=== PATIENT | female | born 1965 | race Hispanic/Latino ===

== ENCOUNTER 2019-03-03 14:07 | Emergency (ER) | payer OTHER ==
[~2019-03-03] VITALS: Ht 157.5 cm; Wt 53.1 kg
[~2019-03-03 14:07] MED LIST: FUROSEMIDE20 MG PO; LEVAQUIN500 MG PO; LEVEMIR100 UNIT/1; LOPRESSOR25 MG PO; NOVOLOG MI100 UNITS/
[2019-03-03] MEDS ORDERED: SODIUM CHLORIDE 0.9% 1000ML 1,000 ML IV STA (14:44)
[2019-03-03] MEDS ORDERED: INSULIN REGULAR, HUMAN 100 UNIT/1 ML 3ML VIAL IV ONE ×2 (14:45→16:15)
[2019-03-03 15:14] LABS: BILIRUBIN,URINE NEGATIVE (NEGATIVE); CLARITY,URINE CLOUDY (CLEAR); COLOR,URINE YELLOW (YELLOW); KETONES,URINE NEGATIVE (NEGATIVE); LEUKOCYTE ESTERASE ,URINE SMALL (NEGATIVE); NITRITE,URINE NEGATIVE (NEGATIVE); URINE UROBILINOGEN 0.2 mg/dL (0.2 - 1)
[2019-03-03 15:17] LABS: PROTEIN,URINE DIPSTICK 3+ (NEGATIVE)
[2019-03-03 15:32] LABS: BACTERIA,URINE MANY /HPF
[2019-03-03 15:47] LABS: BASOPHILS # (AUTO) 0.1 (0.0-0.1); BASOPHILS % 0.8 % (0.0-1.0); EOSINOPHILS # (AUTO) 0.2 (0.0-0.4); EOSINOPHILS % 2.2 % (0.0-6.0); HEMATOCRIT 44.6 % (34.2-44.1); HEMOGLOBIN 14.8 g/dL (12.0-16.0); LYMPHOCYTES # (AUTO) 2.3 (1.0-3.2); LYMPHOCYTES % 21.9 % (18.0-39.1); MEAN CORPUSCULAR HEMOGLOBIN 27.8 pg (28-32); MEAN CORPUSCULAR HGB CONC 33.2 g/dL (31-35); MEAN CORPUSCULAR VOLUME 83.7 fL (81-99); MONOCYTES # (AUTO) 0.7 (0.2-0.8); MONOCYTES % 7.2 % (4.4-11.3); NEUTROPHILS % 67.6 % (38.7-80.0); PLATELET COUNT 343 x10e3/uL (140-360); RED BLOOD COUNT 5.33 x10e6/uL (3.6-5.1); RED CELL DISTRIBUTION WIDTH 13.5 % (11.7-14.4)
[2019-03-03 16:04] LABS: ALANINE AMINOTRANSFERASE 44 IU/L (0-55); ALBUMIN 2.2 g/dL (3.5-5.0); ALBUMIN/GLOBULIN RATIO 0.4 (0.8-2.0); ALKALINE PHOSPHATASE 92 IU/L (40-150); ANION GAP 12.8 mmol/L (8-16); BLOOD UREA NITROGEN 19 mg/dL (7-26); BUN/CREATININE RATIO 24 (6-25); CALCIUM 9.5 mg/dL (8.4-10.2); CARBON DIOXIDE 28 mmol/L (22-29); CHLORIDE 96 mmol/L (98-107); EST GLOMERULAR FILTRATION RATE > 60 ML/MIN (60-); GLUCOSE 380 mg/dL (74-118); MAGNESIUM 1.7 MG/DL (1.3-2.1); POTASSIUM 3.8 mmol/L (3.5-5.1); SODIUM 133 mmol/L (136-145)
[2019-03-03] MEDS ORDERED: CEFTRIAXONE SOD 1 GM/NS 50 ML 50 ML IV ONE (16:30)
[2019-03-03] MEDS ORDERED: BACTRIM DS TAB1 EACH PO (17:48)
[2019-03-03 18:18] VITALS: BP 137/89
== END 2019-03-03 19:00 | disposition home or self-care (01) ==
LOC: ER 14:07
DX: M79.661 Pain in right lower leg (principal); R60.0 Localized edema; E10.65 Type 1 diabetes mellitus with hyperglycemia; E78.5 Hyperlipidemia, unspecified
CPT/HCPCS: 36415; 80053; 81001; 83735; 85025; 87040; 87086; 93971; 99284; J0696; J1817; J7030

== ENCOUNTER → 2019-03-08 | Outpatient (CLI) | payer OTHER ==
[~2019-03-08] MED LIST changes: +ATORVASTATIN CA80 MG PO; +BACTRIM DS TAB1 EACH PO; +CLINDAMYCIN HC300 MG PO; +GABAPENTIN400 MG PO; +GLIMEPIRIDE4 MG PO; +KEFLEX500 MG PO; +LEVEMIR; +LISINOPRIL20 MG PO; +METFORMIN HCL1000 MG PO; +NOVOLOG100 UNITS1; +OMEGA-3-ACID PO; +TYLENOL WITH C1 EACH PO; +ZETIA10 MG PO
== END ==
LOC: CARD 08:28
PROVIDERS: ATTEND Nurse Practitioner Family
DX: I73.9 Peripheral vascular disease, unspecified (principal); I80.03 Phlebitis and thrombophlebitis of superficial vessels of lower extremities, bilateral
CPT/HCPCS: 93925; 93970

== ENCOUNTER 2019-03-19 18:30 | Inpatient (IN) | payer OTHER ==
[~2019-03-19] VITALS: Ht 157.5 cm; Wt 53.1 kg
[~2019-03-19 18:30] MED LIST changes: -ATORVASTATIN CA80 MG PO; -CLINDAMYCIN HC300 MG PO; -GABAPENTIN400 MG PO; -GLIMEPIRIDE4 MG PO; -KEFLEX500 MG PO; -LEVEMIR; -LISINOPRIL20 MG PO; -METFORMIN HCL1000 MG PO; -NOVOLOG100 UNITS1; -OMEGA-3-ACID PO; -TYLENOL WITH C1 EACH PO; -ZETIA10 MG PO
[2019-03-19] MEDS: SODIUM CHLORIDE 0.9% 1000ML 1,000 ML IV SCH (18:44)
[2019-03-19] MEDS ORDERED: ONDANSETRON HCL INJ 2MG/ML 2ML 2 MG/ML VIAL IV PRN (18:45)
[2019-03-19] MEDS ORDERED: MORPHINE SULFATE 2 MG/ML SYR 1ML IV PRN (18:45)
[2019-03-19] MEDS: CEFAZOLIN SOD 1 GM/NS 50ML 50 ML IV SCH (19:19)
[2019-03-19 19:50] LABS: BASOPHILS # (AUTO) 0.1 (0.0-0.1); BASOPHILS % 0.8 % (0.0-1.0); EOSINOPHILS # (AUTO) 0.3 (0.0-0.4); EOSINOPHILS % 3.3 % (0.0-6.0); HEMATOCRIT 36.7 % (34.2-44.1); HEMOGLOBIN 11.9 g/dL (12.0-16.0); LYMPHOCYTES # (AUTO) 2.9 (1.0-3.2); LYMPHOCYTES % 29.2 % (18.0-39.1); MEAN CORPUSCULAR HEMOGLOBIN 27.8 pg (28-32); MEAN CORPUSCULAR HGB CONC 32.4 g/dL (31-35); MEAN CORPUSCULAR VOLUME 85.7 fL (81-99); MONOCYTES # (AUTO) 0.7 (0.2-0.8); MONOCYTES % 6.5 % (4.4-11.3); NEUTROPHILS % 59.8 % (38.7-80.0); PLATELET COUNT 431 x10e3/uL (140-360); RED BLOOD COUNT 4.28 x10e6/uL (3.6-5.1); RED CELL DISTRIBUTION WIDTH 13.4 % (11.7-14.4)
[2019-03-19 20:07] LABS: ANION GAP 13.6 mmol/L (8-16); BLOOD UREA NITROGEN 32 mg/dL (7-26); BUN/CREATININE RATIO 36 (6-25); CALCIUM 9.3 mg/dL (8.4-10.2); CARBON DIOXIDE 23 mmol/L (22-29); CHLORIDE 107 mmol/L (98-107); EST GLOMERULAR FILTRATION RATE > 60 ML/MIN (60-); GLUCOSE 89 mg/dL (74-118); POTASSIUM 4.6 mmol/L (3.5-5.1); SODIUM 139 mmol/L (136-145)
[2019-03-19] MEDS: VANCOMYCIN 1GM/NS 250 ML 250 ML IV SCH (20:53)
--- NOTE | 2019-03-19 21:13 | NUR ---
DOPPLER TECH AT BEDSIDE
--- NOTE | 2019-03-19 21:50 | NUR ---
Received from the E.R. via stretcher. IV to right forearm 20G with on going antibiotics. Transferred to bed. Bed lock and in lowest position. Instructed to use call light when needed.
[2019-03-19] MEDS ORDERED: GABAPENTIN400 MG PO (22:01)
[2019-03-19] MEDS ORDERED: ZETIA10 MG PO (22:01)
[2019-03-19] MEDS ORDERED: GLIMEPIRIDE4 MG PO (22:01)
[2019-03-19] MEDS ORDERED: LISINOPRIL20 MG PO (22:01)
[2019-03-19] MEDS ORDERED: CLINDAMYCIN HC300 MG PO (22:01)
[2019-03-19] MEDS ORDERED: NOVOLOG100 UNITS1 (22:01)
[2019-03-19] MEDS ORDERED: METFORMIN HCL1000 MG PO (22:01)
[2019-03-19] MEDS ORDERED: OMEGA-3-ACID PO (22:01)
[2019-03-19] MEDS ORDERED: ATORVASTATIN CA80 MG PO (22:01)
[2019-03-19] MEDS ORDERED: LEVEMIR (22:01)
[2019-03-19 23:45] VITALS: BP 134/85
[2019-03-19 23:46] VITALS: BP 134/85
[2019-03-19 23:53] VITALS: BP 118/69
[2019-03-20] VITALS (7 sets, daily range): BP systolic 123–147; BP diastolic 74–88
[2019-03-20 05:28] LABS: BASOPHILS # (AUTO) 0.1 (0.0-0.1); BASOPHILS % 0.9 % (0.0-1.0); EOSINOPHILS # (AUTO) 0.3 (0.0-0.4); EOSINOPHILS % 3.8 % (0.0-6.0); HEMATOCRIT 35.6 % (34.2-44.1); HEMOGLOBIN 11.5 g/dL (12.0-16.0); LYMPHOCYTES # (AUTO) 2.2 (1.0-3.2); LYMPHOCYTES % 29.8 % (18.0-39.1); MEAN CORPUSCULAR HEMOGLOBIN 27.8 pg (28-32); MEAN CORPUSCULAR HGB CONC 32.3 g/dL (31-35); MONOCYTES # (AUTO) 0.5 (0.2-0.8); MONOCYTES % 6.7 % (4.4-11.3); NEUTROPHILS # (AUTO) 4.4 (2.1-6.9); NEUTROPHILS % 58.4 % (38.7-80.0); PLATELET COUNT 368 x10e3/uL (140-360); RED BLOOD COUNT 4.14 x10e6/uL (3.6-5.1); RED CELL DISTRIBUTION WIDTH 13.5 % (11.7-14.4)
[2019-03-20 05:45] LABS: ANION GAP 11.5 mmol/L (8-16); BLOOD UREA NITROGEN 27 mg/dL (7-26); BUN/CREATININE RATIO 38 (6-25); CALCIUM 8.7 mg/dL (8.4-10.2); CARBON DIOXIDE 26 mmol/L (22-29); CHLORIDE 110 mmol/L (98-107); CREATININE, SERUM 0.72 mg/dL (0.57-1.11); EST GLOMERULAR FILTRATION RATE > 60 ML/MIN (60-); GLUCOSE 106 mg/dL (74-118); POTASSIUM 4.5 mmol/L (3.5-5.1); SODIUM 143 mmol/L (136-145)
[2019-03-20] MEDS: CEFAZOLIN SOD 1 GM/NS 50ML 50 ML IV SCH (06:26)
--- NOTE | 2019-03-20 06:38 | NUR ---
Spoke with Patric Albrecht answering service for routine consultation.
[2019-03-20] MEDS: VANCOMYCIN 1GM/NS 250 ML 250 ML IV SCH ×2 (08:41→22:13)
[2019-03-20] MEDS: SODIUM CHLORIDE 0.9% 1000ML 1,000 ML IV SCH ×2 (08:41→13:08)
[2019-03-20] MEDS ORDERED: DEXTROSE 50% SYRINGE 50 ML IV PRN ×2 (13:00→16:30)
[2019-03-20] MEDS: INSULIN REGULAR, HUMAN 100 UNIT/1 ML 3ML VIAL SQ SCH ×2 (16:30→21:50)
[2019-03-20] MEDS ORDERED: NON-FORMULARY MEDICATION (Metformin Hcl 1,000 MG) PO SCH (17:00)
[2019-03-20] MEDS ORDERED: SODIUM CHLORIDE 0.9% 50ML 50 ML ONE (17:11)
[2019-03-20] MEDS ORDERED: IOPAMIDOL 370 MG/ML 200 ML INFUS..BTL INJ ONE (17:12)
[2019-03-20] MEDS: GABAPENTIN 400 MG CAP PO SCH (17:55)
[2019-03-20] MEDS: ENOXAPARIN SOD INJ 40 MG/0.4 ML SYR SC SCH (17:55)
--- NOTE | 2019-03-20 19:09 | History and Physical ---
CHIEF COMPLAINT: Right calf cellulitis. HISTORY OF PRESENT ILLNESS: This is a 53-year-old female, who apparently has been having this right calf cellulitis ongoing for the last 2 weeks now. The patient reports that she noticed initially as a small pimple, but it progressively got worse over the last 2 weeks. She denies any insect bites or any traumas or any spider bites. Reports having some purulent discharge from the actual site. Her states that she has been having subjective fevers of 102. Her primary care physician has given some more antibiotics, but with no resolve. The patient came in yesterday for further management and care, and evaluation, and continue with IV antibiotic therapy. The patient was seen and evaluated at that time on the medical floor. Currently, she is doing well. Vital signs were stable during my evaluation. REVIEW OF SYSTEMS: Pertinent positives: Right calf cellulitis. Pertinent negatives: Denies any chest pain, palpitation, nausea, vomiting, diarrhea, dysuria, hematuria, frequency, urgency, lightheadedness, dizziness, abdominal pain, headaches, shortness of breath, cough, congestion, fever, or any other complaints. Rest of the 14-point review of systems are reviewed with the patient and are negative. ALLERGIES: NO KNOWN DRUG ALLERGIES. MEDICATIONS: 1. Zetia 10 mg daily. 2. Gabapentin 400 mg b.i.d. 3. Insulin. 4. Lisinopril 20 mg daily. 5. Atorvastatin 80 mg daily. 6. Loperamide 4 mg daily. 7. Metformin 1000 mg p.o. b.i.d. PAST MEDICAL HISTORY: Type 2 diabetes, hypertension, and hyperlipidemia. PAST SURGICAL HISTORY: None. FAMILY HISTORY: Hypertension and diabetes. SOCIAL HISTORY: No drugs. No alcohol. Does not smoke. Good social support. She has children, . PHYSICAL EXAMINATION: VITAL SIGNS: Temperature is 96.3, pulse 92, respiratory rate is 18, blood pressure is 140/77, and pulse ox 97% on room air. GENERAL: Not in acute distress. Alert and oriented x3. Cooperative on examination. HEENT: Head; normocephalic, atraumatic. Eyes; pupils are equal, round, and reactive to light bilaterally. Extraocular movements intact bilaterally. Throat; no evidence of erythema or exudates in the posterior pharynx. Has poor dentition. NECK: Supple. Good range of motion. PULMONARY: Clear to auscultation bilaterally. No wheezing, no rales, no rhonchi, no crackles appreciated. CARDIOVASCULAR: Positive S1 and S2. No murmurs, rubs, or gallops appreciated. ABDOMEN: Soft, nondistended, and nontender to palpation. Bowel sounds present. MUSCULOSKELETAL: Strength is 5/5 throughout. No evidence of any muscle deficits on examination. No weakness appreciated. NEUROLOGIC: Cranial nerve II through XII grossly intact. No evidence of any neurological deficits on exam. SKIN: Intact. Warm to touch. Good cap refill. PSYCHIATRIC: Normal affect and mood. EXTREMITIES: She has a right lower extremity calf cellulitis indurated. Warm to touch. No discharge appreciated. Has a proximal chronic area in the center aspect of the abscess. LABORATORY STUDIES: Lab findings show white count 7.4, hemoglobin 11.5, hematocrit 22.2, platelets of 368. Chemistry; sodium 143, potassium is 4.5, chloride 110, bicarbonate 26, anion gap of 11, BUN is 27, creatinine 0.72, glucose 106, calcium is 8.7. MICROBIOLOGY: None. IMAGING STUDIES: . IMPRESSION: 1. Right calf cellulitis with underlying abscess. 2. Type 2 diabetes. 3. Hypertension. 4. Hyperlipidemia. PLAN: At this time, we will go ahead and continue with IV vancomycin, discontinue , which has no benefit and the fact that the patient is on vancomycin for possible MRSA. I will have ID and Wound Care come to see the patient. The patient may need be a local abscess drainage, which wound care will be of helpful. and Dr. Albrecht accordingly. We restarted all her home medications including anti-glycemic medications. I put her on insulin sliding scale and Accu-Cheks. Resume her antihypertensive medications. Monitor blood pressure closely. Get repeat labs in the morning. Put on Lovenox for DVT prophylaxis. We will also get a CT of the right calf with IV contrast to see if there is any deep tissue abscess that may need more aggressive surgical intervention. Otherwise, I discussed the plan of care with the nurse as well as the patient using a napper runner. MD ANITA Bardales/CAPRICEL /[id number]
--- NOTE | 2019-03-20 19:54 | Consultation ---
DATE OF CONSULTATION: HISTORY OF PRESENT ILLNESS: This patient who is here with redness and swelling of her left foot. She denies any history. She had it for more than a week. Not sure of there is a specific insect bite or trauma. The patient comes in with redness and swelling. Started on IV antibiotic. PAST MEDICAL HISTORY: Significant for diabetes mellitus, hypertension, hyperlipidemia. PAST SURGICAL HISTORY: Denies. ALLERGIES: NKA. SOCIAL HISTORY: There is no smoking, drug abuse, or alcohol abuse. FAMILY HISTORY: Otherwise diabetes mellitus. REVIEW OF SYSTEMS: HEENT: Negative. PULMONARY: Negative. CARDIAC: Negative. : Negative. SKIN: There is no rash. MEDICATIONS: She is on vancomycin, Amaryl, Lipitor, Prinivil, Neurontin. LABORATORY DATA: White count 9.9, hemoglobin 11. Her sodium 143, potassium 4.5, creatinine 0.72. PHYSICAL EXAMINATION: GENERAL: She is currently alert, oriented, does not seem in acute distress. VITAL SIGNS: Stable, afebrile. HEENT: Normocephalic, not icteric. NECK: Supple. No JVD. No thyromegaly. CHEST: Clear bilaterally. HEART: S1, S2. No murmur. ABDOMEN: Soft. Bowel sounds present. No tenderness. EXTREMITIES: Right leg there is erythema. There is edema. There is an area of induration in the middle and behind the calf area. IMPRESSION: 1. Cellulitis, maybe early abscess. Agree with vancomycin for the time being. There is no drainage to culture. Local heat. We will follow vancomycin trough. We will see how she will do clinically. 2. Diabetes mellitus, hypertension, neuropathy. Continue with home medication as ordered. Keep the leg elevated with local heat pad. We will follow. MD DINAH Joiner/KELLI /[id number]
[2019-03-20] MEDS: ATORVASTATIN 40 MG TAB PO SCH (22:13)
[2019-03-21] VITALS (8 sets, daily range): BP systolic 95–147; BP diastolic 62–85
[2019-03-21 06:02] LABS: BASOPHILS # (AUTO) 0.1 (0.0-0.1); BASOPHILS % 1.2 % (0.0-1.0); EOSINOPHILS # (AUTO) 0.3 (0.0-0.4); EOSINOPHILS % 4.5 % (0.0-6.0); HEMATOCRIT 36.2 % (34.2-44.1); HEMOGLOBIN 11.5 g/dL (12.0-16.0); LYMPHOCYTES # (AUTO) 2.1 (1.0-3.2); LYMPHOCYTES % 32.8 % (18.0-39.1); MEAN CORPUSCULAR HEMOGLOBIN 27.5 pg (28-32); MEAN CORPUSCULAR HGB CONC 31.8 g/dL (31-35); MEAN CORPUSCULAR VOLUME 86.6 fL (81-99); MONOCYTES # (AUTO) 0.5 (0.2-0.8); NEUTROPHILS # (AUTO) 3.5 (2.1-6.9); NEUTROPHILS % 54.5 % (38.7-80.0); PLATELET COUNT 365 x10e3/uL (140-360); RED BLOOD COUNT 4.18 x10e6/uL (3.6-5.1); RED CELL DISTRIBUTION WIDTH 13.4 % (11.7-14.4)
[2019-03-21 06:34] LABS: ANION GAP 13.3 mmol/L (8-16); BLOOD UREA NITROGEN 22 mg/dL (7-26); BUN/CREATININE RATIO 27 (6-25); CALCIUM 8.7 mg/dL (8.4-10.2); CARBON DIOXIDE 26 mmol/L (22-29); CHLORIDE 108 mmol/L (98-107); CREATININE, SERUM 0.82 mg/dL (0.57-1.11); EST GLOMERULAR FILTRATION RATE > 60 ML/MIN (60-); GLUCOSE 165 mg/dL (74-118); POTASSIUM 4.3 mmol/L (3.5-5.1); SODIUM 143 mmol/L (136-145)
[2019-03-21] MEDS: SODIUM CHLORIDE 0.9% 1000ML 1,000 ML IV SCH ×2 (07:14→14:22)
[2019-03-21] MEDS: INSULIN REGULAR, HUMAN 100 UNIT/1 ML 3ML VIAL SQ SCH ×4 (07:30→21:10)
[2019-03-21] MEDS: GABAPENTIN 400 MG CAP PO SCH ×2 (08:53→18:17)
[2019-03-21] MEDS: LISINOPRIL 20 MG TAB PO SCH (08:53)
[2019-03-21] MEDS: EZETIMIBE 10 MG TAB PO SCH (08:53)
[2019-03-21] MEDS: GLIMEPIRIDE 2 MG TAB PO SCH (08:53)
[2019-03-21] MEDS: VANCOMYCIN 1GM/NS 250 ML 250 ML IV SCH ×2 (08:54→21:00)
--- NOTE | 2019-03-21 10:51 | Diagnostic Imaging Report ---
CT Lower extremity right with contrast, with reconstructions. CPT code: 15314, 54627 Indications: Cellulitis, evaluate for abscess at the mid lower extremity posterior aspect. Technique: Contiguous 2.5 mm thickness axial images were obtained through the right lower extremity. 100 cc of nonionic contrast was administered intravenously. Rationale for reconstructions: Coronal and sagittal reconstructions were generated to better facilitate assessment of alignment and extent of fracture lines. Dose reduction techniques used: Automated exposure control, adjustment of the mAs and/or kVp according to patient size, standardized low-dose protocol, and/or iterative reconstruction technique. Comparison: None. Findings: Diffuse subcutaneous edema throughout the lower extremity, ankle, and proximal foot. No loculated fluid collection to suggest abscess. Visualized muscle bundles are symmetric in attenuation with normal enhancement. Vasculature: Scattered atherosclerotic calcifications. There is flow in the arterial structures. No significant stenosis. Bones: No fracture or dislocation. No significant degenerative changes. IMPRESSION: Diffuse cellulitis of the lower extremity. No loculated fluid collection to suggest abscess. Thank you for this referral. Signed by: Dr. Barry Talley MD on 03/21/2019 10:48 AM
--- NOTE | 2019-03-21 13:02 | Consultation ---
DATE OF CONSULTATION: Wound Consultation HISTORY OF PRESENT ILLNESS: A 53-year-old female patient admitted with a left calf abscess and cellulitis, fever. Wound consult was called. PAST MEDICAL HISTORY: Hyperlipidemia, diabetes mellitus, hypertension, and diabetic neuropathy. MEDICATIONS: 1. Zetia 10 mg daily. 2. Gabapentin. 3. Lisinopril. 4. Atorvastatin. 5. Metformin. PERSONAL HISTORY: Denies smoking or alcohol. PHYSICAL EXAMINATION: VITAL SIGNS: Blood pressure 148/70 and pulse of 90. HEENT: Normal. NECK: No JVD. LUNGS: Clear. CVS: Normal. ABDOMEN: Soft. Bowel sounds normal. EXTREMITIES: Lower extremities, right lower extremity swollen with necrotic eschar in the right posterior calf, fluctuant, tender. ASSESSMENT: Right calf abscess with cellulitis. PLAN: We will plan doing incision and drainage and debridement of the wound. Continue antibiotics. MD NARENDRA Marie/KELLI /[id number]
[2019-03-21] MEDS: MORPHINE SULFATE INJ 4 MG/ML INJ 1ML IV PRN (13:05)
--- NOTE | 2019-03-21 13:47 | Operative Report ---
DATE OF PROCEDURE: 03/21/2019 SURGEON: Rhona Nowak MD PROCEDURE: Incision and drainage and debridement of the abscess. PROCEDURE IN DETAIL: A 53-year-old female patient admitted with abscess and cellulitis of right calf. After explaining the procedure, I used a #15 blade. I did an incision and drainage of the abscess and excisional debridement removed all the nonviable tissue and part of the viable tissue. There was some minimal bleeding, controlled with pressure. Wound culture sent. The patient tolerated the procedure. Wound was cleaned with normal saline, packed with Iodoform gauze, 4x4, Kerlix, and tape. Rhona Nowak MD TG/MODL /[id number]
--- NOTE | 2019-03-21 15:58 | Progress Note ---
DATE: 03/21/2019 Medicine Progress Note SUBJECTIVE: The patient is doing well with no complaints. Wound care did an incision and drainage at bedside. Wound cultures were sent. Had minimal pus. Continue with IV antibiotics for now. PHYSICAL EXAMINATION: VITAL SIGNS: Temperature is 95.7, pulse 82, respiratory rate is 19, blood pressure 147/84, pulse ox 96% on room air. GENERAL: Not in acute distress. Alert and oriented x3. Cooperative on examination. HEENT: Head; normocephalic, atraumatic. Eyes; pupils are equal, round, and reactive to light bilaterally. Extraocular movements are intact bilaterally. Throat; no evidence of erythema or exudates in the posterior pharynx. Has poor dentition. NECK: Supple. Good range of motion. PULMONARY: Clear to auscultation bilaterally. No wheezing, no rales, no rhonchi, no crackles appreciated. CARDIOVASCULAR: Positive S1 and S2. No murmurs, rubs, or gallops appreciated. ABDOMEN: Soft, nondistended, and nontender to palpation. Bowel sounds present. MUSCULOSKELETAL: Strength is 5/5 throughout. No evidence of any muscle deficits on examination. No weakness appreciated. NEUROLOGIC: Cranial nerve II through XII grossly intact. No evidence of any neurological deficits on exam. SKIN: Intact. Warm to touch. Good cap refill. PSYCHIATRIC: Normal affect and mood. EXTREMITIES: She had right lower extremity cellulitis. I removed now wrapped. LABORATORY DATA: Lab findings show white count of 6.4, hemoglobin 11.5, hematocrit 36, platelets of 365. Chemistry, sodium , glucose is 165, calcium is 8.7. MICROBIOLOGY: Wound cultures are pending. IMAGING STUDIES: CT of the right lower extremity shows diffuse cellulitis of the lower extremity. No loculated fluid collection to suggest abscess. IMPRESSION: 1. Right calf cellulitis resolved, incision and drainage performed on 03/21/2019 by wound care. 2. Type 2 diabetes. 3. Hypertension. 4. Hyperlipidemia. PLAN: At this time, we will continue to monitor the wound cultures. Continue with IV antibiotics. ID and wound care are follow closely. Resume sliding scale. Resume antihypertensive medications. Monitor glucose and blood pressure closely. Continue with Lovenox for DVT prophylaxis. CT of the right calf had been reviewed, shows . We will continue to follow with the consultants. MD ANITA Bardales/MODL /[id number]
--- NOTE | 2019-03-21 17:24 | Progress Note ---
DATE: SUBJECTIVE: This patient is doing better today. There are no new complaints. Her leg is better. REVIEW OF SYSTEMS: HEENT: Negative. PULMONARY: Negative. CARDIAC: Negative. PHYSICAL EXAMINATION: GENERAL: She is currently alert and oriented, does not seem to be in acute distress. VITAL SIGNS: Stable, currently afebrile. HEENT: She is not icteric. NECK: Supple. CHEST: Clear. HEART: S1, S2. No murmur. ABDOMEN: Soft. EXTREMITIES: The leg is status post incision and drainage by Dr. Nowak yesterday. IMPRESSION: 1. Abscess of the leg. 2. Cellulitis of the leg, status post incision and drainage. 3. Diabetes mellitus. 4. Neuropathy. Continue with IV vancomycin until we get culture and sensitivity. Continue with local care. Discussed with the patient. We will follow CBC. Follow vancomycin trough. MD DINAH Joiner/KELLI /[id number]
[2019-03-21] MEDS: ENOXAPARIN SOD INJ 40 MG/0.4 ML SYR SC SCH (18:17)
--- NOTE | 2019-03-21 21:00 | NUR ---
pt vanc trough 20.6, Dr. Albrecht called and message left with answering service
[2019-03-21] MEDS: ATORVASTATIN 40 MG TAB PO SCH (21:10)
[2019-03-22] VITALS: BP 149/90
[2019-03-22 04:00] VITALS: BP 123/72
[2019-03-22] MEDS: SODIUM CHLORIDE 0.9% 1000ML 1,000 ML IV SCH (07:25)
[2019-03-22] MEDS: INSULIN REGULAR, HUMAN 100 UNIT/1 ML 3ML VIAL SQ SCH ×3 (08:44→17:13)
[2019-03-22] MEDS: EZETIMIBE 10 MG TAB PO SCH (08:44)
[2019-03-22] MEDS: LISINOPRIL 20 MG TAB PO SCH (08:44)
[2019-03-22] MEDS: GLIMEPIRIDE 2 MG TAB PO SCH (08:44)
[2019-03-22] MEDS: GABAPENTIN 400 MG CAP PO SCH ×2 (08:44→17:12)
[2019-03-22 08:45] VITALS: BP 138/74
[2019-03-22] MEDS: MORPHINE SULFATE INJ 4 MG/ML INJ 1ML IV PRN (08:51)
[2019-03-22 08:53] VITALS: BP 138/74
--- NOTE | 2019-03-22 09:00 | NUR ---
Paged to notify of vancomycin trough 10.7. Awaiting for call back
--- NOTE | 2019-03-22 10:21 | NUR ---
aware of vancomycin trough from 03/21/19 and 03/22/19
[2019-03-22] MEDS ORDERED: VANCOMYCIN 1GM/NS 250 ML 250 ML IV SCH (11:00)
[2019-03-22 12:00] VITALS: BP 136/79
--- NOTE | 2019-03-22 14:54 | Progress Note ---
DATE: 03/22/2019 Medicine Progress Note SUBJECTIVE: The patient is doing well today with no complaints. She did have local wound care on the right lower extremity last night. If the patient is cleared by both consultants, the patient can be discharged to home. OBJECTIVE: VITAL SIGNS: Temperature is 97.9, pulse 89, respiratory rate 17, blood pressure 138/74, and pulse ox 93% on room air. GENERAL: Not in acute distress, alert, oriented x3. Cooperative on examination. HEENT: Head; normocephalic, atraumatic. Eyes; pupils are equal, round, and reactive to light bilaterally. Extraocular movements intact bilaterally. Throat; no evidence of erythema or exudates in the posterior pharynx. Has poor dentition. NECK: Supple. Good range of motion. PULMONARY: Clear to auscultation bilaterally. No wheezing, no rales, no rhonchi, no crackles appreciated. CARDIOVASCULAR: Positive S1 and S2. No murmurs, rubs, or gallops appreciated. ABDOMEN: Soft, nondistended, and nontender to palpation. Bowel sounds present. MUSCULOSKELETAL: Strength is 5/5 throughout. No evidence of any muscle deficits on examination. No weakness appreciated. NEUROLOGIC: Cranial nerve II through XII grossly intact. No evidence of any neurological deficits on exam. SKIN: Intact. Warm to touch. Good cap refill. PSYCHIATRIC: Normal affect and mood. EXTREMITIES: No edema. Good range of motion throughout. LABORATORY FINDINGS: CBC stable. Chemistry none. ASSESSMENT: 1. Right calf cellulitis, status post incision and drainage performed on 03/21/2019 by the wound care physician. 2. Type 2 diabetes. 3. Hypertension. 4. Hyperlipidemia. PLAN: 1. At this time, continue with supportive care. The wound fluid looks significantly large, but improving daily along with antibiotic therapy. ID and Wound Care will follow closely. Continue with sliding scale. 2. Diabetes. Monitor glucose and blood pressure closely. She is on Lovenox for DVT prophylaxis. Once the patient is cleared by the consultants, the patient can be discharged to home. MD ANITA Bardales/KELLI /[id number]
[2019-03-22 16:00] VITALS: BP 109/71
[2019-03-22] MEDS: ENOXAPARIN SOD INJ 40 MG/0.4 ML SYR SC SCH (17:12)
[2019-03-22] MEDS ORDERED: ZETIA10 MG PO (18:45)
[2019-03-22] MEDS ORDERED: TYLENOL WITH C1 EACH PO (18:47)
[2019-03-22] MEDS ORDERED: KEFLEX500 MG PO (18:47)
--- NOTE | 2019-03-22 19:00 | NUR ---
wound care instructions given to sister and nephew. Voiced understanding and returned demonstration
--- NOTE | 2019-03-22 19:43 | NUR ---
Right FA IV discontinued. No signs of infiltration noted. 2x2 gauze and tape placed. Taken via wheelchair to personal car. AAOX4 to time, person, place, situation. Respirations even and unlabored. Dressing to RLE clean, dry, and intact. Discharge instructions, rx and all personal belongings taken with patient.
--- NOTE | 2019-03-24 04:58 | Discharge Summary ---
FINAL DISCHARGE DIAGNOSES: 1. Right calf cellulitis with abscess, status post incision and drainage on 03/21/2019. 2. Type 2 diabetes. 3. Hypertension. 4. Hyperlipidemia. CONSULTANTS: Wound Care and ID. VITAL SIGNS: Temperature is 97, pulse 68, respiratory rate 19, blood pressure 109/71, pulse ox 95% on room air. LAB FINDINGS: Show white count 6.4, hemoglobin 9.5, hematocrit 36, and platelets of 365. Chemistry; sodium is 143, potassium is 4.3, chloride is 108, bicarb is 26, anion gap of 13, BUN is 22, creatinine is 0.82, glucose 172, calcium is 8.7. MICROBIOLOGY: Wound culture consistent with Staph aureus. IMAGING STUDIES: Venous Doppler of the right lower extremity shows no evidence of any DVT. CT of the right lower extremity with IV contrast shows diffuse cellulitis of the lower extremity. No loculated fluid collection to suggest abscess. HOSPITAL COURSE: This is a 53-year-old female, came in with worsening right lower extremity cellulitis, concerning for underlying abscess. CT of the right lower extremity consistent with cellulitis with no evidence of any abscess. Wound Care and ID were consulted. The patient was on broad-spectrum IV antibiotics while here in the hospital stay. I and D was performed by Dr. Peters, wound care at bedside. Wound cultures were sent, consistent with Staph aureus. The patient did well on IV antibiotics and was managed accordingly by ID. The patient was cleared for discharge by all consultants, Wound Care and ID. The patient will be discharged on oral antibiotics written by Infectious Disease physician with oral Keflex. The patient also with daily dressing changes recommended by Wound Care. On discharge, the patient was back to normal baseline with no other complaints. On the day of discharge, vital signs were stable, labs reviewed and stable. The patient is seen and evaluated, and examined thoroughly on the day of discharge. No other complaints. The patient verbalized understanding and agreed with plan of care to followup appointment as an outpatient with primary care physician in 1 week, ID and Wound Care in 2 weeks' time. The patient was cleared for discharge by both consultants. MEDICATIONS: See med reconciliation form. DISPOSITION: Home. CONDITION: Stable. DIET: Heart healthy. In the event of any worsening symptoms, the patient was advised to come back to the ED for further evaluation. Discharge summary took greater than 35 minutes. MD ANITA Bardales/KELLI /[id number]
== END 2019-03-22 19:53 | disposition home or self-care (01) | DRG 581 ==
LOC: ER 18:33 → INTOOBSV 19:19 → ERHOLD 19:19 → OBSVTOIN 19:19 → MED/SURG2 21:55
PROVIDERS: ADMIT Internal Medicine; ATTEND Internal Medicine
PROC: 0J9N0ZZ Drainage of Right Lower Leg Subcutaneous Tissue and Fascia, Open Approach (ICD-10-PCS; principal; 2019-03-21)
DX: L02.415 Cutaneous abscess of right lower limb (principal); L03.115 Cellulitis of right lower limb; B95.62 Methicillin resistant Staphylococcus aureus infection as the cause of diseases classified elsewhere; E11.9 Type 2 diabetes mellitus without complications; I10 Essential (primary) hypertension; E78.5 Hyperlipidemia, unspecified; E11.40 Type 2 diabetes mellitus with diabetic neuropathy, unspecified; Z79.4 Long term (current) use of insulin
CPT/HCPCS: 36415; 80048; 80202; 82948; 85025; 87071; 87186; 87205; 93971; 99283; J0690; J1650; J1817; J2270; J3370; J7030; Q9967

== ENCOUNTER 2020-03-26 17:42 | Inpatient (IN) | payer OTHER ==
[~2020-03-26] VITALS: Ht 157.5 cm; Wt 76.2 kg
[~2020-03-26 17:42] MED LIST changes: +ATORVASTATIN CA80 MG PO; +CLINDAMYCIN HC300 MG PO; +GABAPENTIN400 MG PO; +GLIMEPIRIDE4 MG PO; +KEFLEX500 MG PO; +LEVEMIR; +LISINOPRIL20 MG PO; +METFORMIN HCL1000 MG PO; +NOVOLOG100 UNITS1; +OMEGA-3-ACID PO; +TYLENOL WITH C1 EACH PO; +ZETIA10 MG PO
[2020-03-26] MEDS ORDERED: SODIUM CHLORIDE 0.9% 1000ML 1,000 ML IV STA (17:48)
--- OUTSIDE RECORDS SUMMARY | 2020-03-26 17:58 | XMS REPORT | Continuity of Care Document ---
Author Author [facility] t Organization [facility] Address [address] [place] [address] Phone Unavailable Care Team Providers Care Jailer Name Role Phone NONSTAFF PCP Unavailable DAHU, S JIRIES Attphys Unavailable DAHU, S JIRIES Admphys Unavailable Payers Payer Name Policy Type Policy Number Effective Date Expiration Date Sabino Alaniz [facility] [id number] 2018 00:00: 00 [facility] Problems Condition Name Condition Details Condition Category Status Onset Date Resolution Date Last Treatment Date Treating Clinician Comments Source Dehydration Dehydration Problem Active 2016-01-22 00:00:00 [facility] Diarrhea Diarrhea Problem Active 2016-01-22 00:00:00 [facility] Hyperglycemia Hyperglycemia Problem Active 2016-01-22 00:00:00 [facility] Urinary tract infection UTI (urinary tract infection) Problem Active 2016-01-22 00:00:00 [facility] Vomiting Vomiting Problem Active 2016-01-22 00:00:00 [facility] Allergies, Adverse Reactions, Alerts This patient has no known allergies or adverse reactions. Medications Ordered Medication Name Filled Medication Name Start Date Stop Da te Current Medication? Ordering Clinician Indication Dosage Frequency Signature (SIG) Comments Components Source Acetaminophen With Codeine (Tylenol With Codeine #3 Ta blet) 1 Each Tablet Acetaminophen With Codeine (Tylenol With Codeine #3 Tablet) 1 Each Tablet Yes 1 Every 6 Hours as needed for Moderate Pipe n (4-6) [facility] Atorvastatin Calcium 80 Mg Tablet Atorvastatin Calcium 80 Mg Tablet Yes 80 Daily [facility] Cephalexin Monohydrate (Keflex) 500 Mg Capsule Cephale frankie Monohydrate (Keflex) 500 Mg Capsule Yes 500 Every 8 Hours [facility] Ezetimibe (Zetia) 10 Mg Tablet Ezetimibe (Zetia) 10 Mg Tablet Yes 10 Daily [facility] Gabapentin 400 Mg Capsule Gabapentin 400 Mg Capsule Yes 400 Twice A Day [facility] Glimepiride 4 Mg Tablet Glimepiride 4 Mg Tablet Yes 4 Daily [facility] Insulin Aspart (Novolog) 100 Units/1 Ml Inj Insulin As part (Novolog) 100 Units/1 Ml Inj Yes [facility] Levemir Levemir Yes [facility] Lisinopril (Prinavil / Zestril) 20 Mg Tablet Lisinopri l (Prinavil / Zestril) 20 Mg Tablet Yes 20 Daily [facility] Metformin Hcl 1,000 Mg Tablet Metformin Hcl 1,000 Mg Tablet Yes 1000 Twice A Day [facility] Gumus-9-Skjd 1,000 Mg Tidmh-1-Mbmk 1,000 Mg Yes 1000 Daily [facility] Clindamycin Hcl 300 Mg Capsule, 300 Mg Oral Clindamyci n Hcl 300 Mg Capsule, 300 Mg Oral 2019-03-22 00:00:00 No 300 Three Times A Da y [facility] Ezetimibe (Zetia) 10 Mg Tablet, 10 Mg Oral Ezetimibe ( Zetia) 10 Mg Tablet, 10 Mg Oral 2019-03-22 00:00:00 No 10 Daily [facility] Procedures Procedure Date / Time Performed Performing Clinician [facility] e CT extremity lower right w contrast 2019-03-20 00:00:00 ROBIN EDGAR [facility] EMERGENCY DEPT VISIT 2019-03-03 00:00:00 [facility] Encounters Start Date/Time End Date/Time Encounter Type Admission Type Attendi [facility] Care Department Encounter ID Source 2019-03-19 19:19:00 2019-03-22 19:53:00 Discharged Inpatient 1 ENDER EDGAR [facility] [id number] [facility] 2019-03-08 08:28:00 2019-03-08 08:28:00 Registered Clinic [facility] [id number] [facility] 2019-03-03 14:07:00 2019-03-03 19:00:00 Departed Emergency Room [facility] [id number] [facility] Results Test Description Test Time Test Comments Results Result Comments Source SCR MAMM BILATERAL TAHIRA CAD DIGITAL 2019-06-02 09:03:33 - SCR MAMM BILATERAL TAHIRA CAD DIGITALBILATERAL DIGITAL SCREENING MAMMOGRAM 3D/2D WITH CAD: 06/02/2019CLINICAL: Asymptomatic. Digital breast tomosynthesis was performed in addition to routine CC and MLO views. Current mammographic images were evaluated by either a KLab M-Vu or a [employer] ImageChecker CAD (computer aided detection system). Comparison is made to exams dated 06/01/2018 mammogram and 03/06/2017 mammogram - [facility]. There are scattered fibroglandular tissues in both breasts. There are benign calcifications in both breasts. No suspicious mass, architectural distortion, malignant type calcification, or lymph node abnormality detected. Breast architecture is stable compared to prior exams.IMPRESSION: BENIGNThere is no mammographic evidence of malignancy. Resume annual screening mammography in one year. Malena hallman/jose:06/02/2019 09:03:33 [employer]: [place], [facility] sent: BIRADS 1-2 Normal Mammogram BI-RADS: 2 Benign Bedside Glucose 2019-03-22 16:17:00 Test Item Bedside Glucose (test code = 01325-8) 172 70-120 H Meter ID: [id number] [facility] Eogmlt1228-54-31 08:37:00* Test Item Value Reference Range Interpretation Comments Vancomycin Level Trough (test code = 4092-3) 10.7 5.0-10.0 HH Results repeated and called to REGINALDO JOSE at 0834 on 03/22/19 by Reno Erickson . Read back and verified.[facility] L[facility] [id number] 10:44:00 [facility] [address] [address] Patient Name: DERIK BAXTER MR #: [id number] : 1965 Age/Sex: 53/F Req #: [id number] Adm Physician: ENDER EDGAR MD Ordered by: ENDER EDGAR MD Report #: [id number] Location: MED/SURG2 Room/Bed: 210 Procedure: CT/CT RIGHT LOWER EXTREMITY W Exam Date: Exam Ti me: REPORT STATUS: Signed CT Lo wer extremity right with contrast, with reconstructions. CPT code: 82482, 7 6376 Indications: Cellulitis, evaluate for abscess at the mid lower extremi ty posterior aspect. Technique: Contiguous 2.5 mm thickness axial images were obtained through the right lower extremity. 100 cc of nonionic contrast w as administered intravenously. Rationale for reconstructions: Coronal and sagittal reconstructions were generated to better facilitate assessment of al ignment and extent of fracture lines. Dose reduction techniques used: Aut omated exposure control, adjustment of the mAs and/or kVp according to patient size, standardized low-dose protocol, and/or iterative reconstruction techniq ue. Comparison: None. Findings: Diffuse subcutaneous edema throughout the lower extremity, ankle, and proximal foot. No loculated fluid collection t o suggest abscess. Visualized muscle bundles are symmetric in attenuation w ith normal enhancement. Vasculature: Scattered atherosclerotic calcificatio ns. There is flow in the arterial structures. No significant stenosis. Moses sunny: No fracture or dislocation. No significant degenerative changes. IMPRE SSION: Diffuse cellulitis of the lower extremity. No loculated fluid collec tion to suggest abscess. Thank you for this referral. Signed by: Dr. Santa Talley MD on 03/21/2019 10:48 AM Dictated By: SANTA GOMEZ MD 1048 Transcri bed By: CYNTHIA on 03/21/19 1048 COPY TO: ENDER EDGAR MD Sodium Yxyij1013-36-07 06:51:00* Test Item Value Reference Range Interpretation Comments Sodium Level (test code = 2951-2) 143 136-145 [facility] CenterPotassium Ctcfz3892-31-67 06:51:00* Test Item Value Reference Range Interpretation Comments Potassium Level (test code = 2823-3) 4.3 3.5-5.1 [facility] CenterChloride Fhbdr3645-94-56 06:51:00* Test Item Value Reference Range Interpretation Comments Chloride Level (test code = 2075-0) 108 98-107 H [facility] CenterCarbon Dioxide Ecinz4378-32-58 06:51:00* Test Item Value Reference Range Interpretation Comments Carbon Dioxide Level (test code = 2028-9) 26 22-29 [facility] CenterAnion Eiw2087-32-27 06:51:00* Test Item Value Reference Range Interpretation Comments Anion Gap (test code = 58529-2) 13.3 8-16 [facility] CenterBlood Urea Mpvdtznl2707-84-94 06:51:00* Test Item Value Reference Range Interpretation Comments Blood Urea Nitrogen (test code = 3094-0) 22 7-26 [facility] CenterCreatinine2019-08-11 06:51:00* Test Item Value Reference Range Interpretation Comments Creatinine (test code = 2160-0) 0.82 0.57-1.11 [facility] CenterBUN/Creatinine Ipayf4597-55-69 06:51:00* Test Item Value Reference Range Interpretation Comments BUN/Creatinine Ratio (test code = 3097-3) 27 6-25 H [facility] CenterEstimat Glomerular Filtration Rate 2019-03-21 06:51:00* Test Item Value Reference Range Interpretation Comments Estimat Glomerular Filtration Rate (test code = 997213345) > 60 >60 Ranges were taken from the National Kidney Disease Education Program and the [facility] Kidney Foundation literature.Reference ranges:60 or greater: Cysrsc06-87 ( for 3 consecutive months): Chronic kidney disease 15 or less: Kidney failureVal Verde Regional Medical CenterGlucose Uwgvv2298-97-87 06:51:00* Test Item Value Reference Range Interpretation Comments Glucose Level (test code = JOY3695) 165 74-118 H [facility] CenterCalcium Dsglm0410-92-30 06:51:00* Test Item Value Reference Range Interpretation Comments Calcium Level (test code = 86487-0) 8.7 8.4-10.2 [facility] CenterWhite Blood Eapxe6526-13-40 06:31:00* Test Item Value Reference Range Interpretation Comments White Blood Count (test code = 6690-2) 6.47 4.8-10.8 [facility] CenterRed Blood Lbaif8343-34-55 06:31:00* Test Item Value Reference Range Interpretation Comments Red Blood Count (test code = 789-8) 4.18 3.6-5.1 [facility] CenterHemoglobin2019-08-11 06:31:00* Test Item Value Reference Range Interpretation Comments Hemoglobin (test code = 00929-4) 11.5 12.0-16.0 L [facility] CenterHematocrit2019-08-11 06:31:00* Test Item Value Reference Range Interpretation Comments Hematocrit (test code = 4544-3) 36.2 34.2-44.1 [facility] CenterMean Corpuscular Iuthns0560-77-55 06:31:00* Test Item Value Reference Range Interpretation Comments Mean Corpuscular Volume (test code = 787-2) 86.6 81-99 [facility] CenterMean Corpuscular Ygvwnndklu8120-40-99 06:31:00* Test Item Value Reference Range Interpretation Comments Mean Corpuscular Hemoglobin (test code = 785-6) 27.5 28-32 L [facility] CenterMean Corpuscular Hemoglobin Concent 2019-03-21 06:31:00* Test Item Value Reference Range Interpretation Comments Mean Corpuscular Hemoglobin Concent (test code = 786-4) 31.8 31-35 [facility] CenterRed Cell Distribution Sqrld4698-45-26 06:31:00* Test Item Value Reference Range Interpretation Comments Red Cell Distribution Width (test code = 54720-5) 13.4 11.7 -14.4 [facility] CenterPlatelet Roybo5650-89-36 06:31:00* Test Item Value Reference Range Interpretation Comments Platelet Count (test code = 777-3) 365 140-360 H [facility] CenterNeutrophils (%) (Auto)2019-03-21 06:31:00 * Test Item Value Reference Range Interpretation Comments Neutrophils (%) (Auto) (test code = 92160-3) 54.5 38.7-80.0 [facility] CenterLymphocytes (%) (Auto)2019-03-21 06:31:00 * Test Item Value Reference Range Interpretation Comments Lymphocytes (%) (Auto) (test code = 736-9) 32.8 18.0-39.1 [facility] CenterMonocytes (%) (Auto)2019-03-21 06:31:00* Test Item Value Reference Range Interpretation Comments Monocytes (%) (Auto) (test code = 5905-5) 7.0 4.4-11.3 [facility] CenterEosinophils (%) (Auto)2019-03-21 06:31:00 * Test Item Value Reference Range Interpretation Comments Eosinophils (%) (Auto) (test code = 713-8) 4.5 0.0-6.0 [facility] CenterBasophils (%) (Auto)2019-03-21 06:31:00* Test Item Value Reference Range Interpretation Comments Basophils (%) (Auto) (test code = 706-2) 1.2 0.0-1.0 H [facility] CenterIM GRANULOCYTES %2019-03-21 06:31:00* Test Item Value Reference Range Interpretation Comments IM GRANULOCYTES % (test code = IM GRANULOCYTES %) 0.0 0.0- 1.0 [facility] CenterNeutrophils # (Auto)2019-03-21 06:31:00* Test Item Value Reference Range Interpretation Comments Neutrophils # (Auto) (test code = 751-8) 3.5 2.1-6.9 [facility] CenterLymphocytes # (Auto)2019-03-21 06:31:00* Test Item Value Reference Range Interpretation Comments Lymphocytes # (Auto) (test code = 61713-6) 2.1 1.0-3.2 [facility] CenterMonocytes # (Auto)2019-03-21 06:31:00* Test Item Value Reference Range Interpretation Comments Monocytes # (Auto) (test code = 742-7) 0.5 0.2-0.8 [facility] CenterEosinophils # (Auto)2019-03-21 06:31:00* Test Item Value Reference Range Interpretation Comments Eosinophils # (Auto) (test code = 711-2) 0.3 0.0-0.4 [facility] CenterBasophils # (Auto)2019-03-21 06:31:00* Test Item Value Reference Range Interpretation Comments Basophils # (Auto) (test code = 704-7) 0.1 0.0-0.1 [facility] CenterAbsolute Immature Granulocyte (auto 2019-03-21 06:31:00* Test Item Value Reference Range Interpretation Comments Absolute Immature Granulocyte (auto (allie t code = Absolute Immature Granulocyte (auto) 0 0-0.1 [facility] CenterBlood Udpmptt1858-66-96 15:40:00* Test Item Value Reference Range Interpretation Comments Blood Culture (test code = 49568277) NO GROWTH AFTER 5 DAYS, [facility]AL [facility] Jxtzs6404-81-26 16:13:00* Test Item Value Reference Range Interpretation Comments Sodium Level (test code = 2951-2) 133 136-145 L [facility] CenterPotassium Vdjhl3319-78-18 16:13:00* Test Item Value Reference Range Interpretation Comments Potassium Level (test code = 2823-3) 3.8 3.5-5.1 [facility] CenterChloride Jiyxd4269-84-14 16:13:00* Test Item Value Reference Range Interpretation Comments Chloride Level (test code = 2075-0) 96 98-107 L [facility] CenterCarbon Dioxide Owcal1914-56-73 16:13:00* Test Item Value Reference Range Interpretation Comments Carbon Dioxide Level (test code = 2028-9) 28 22-29 [facility] CenterAnion Xcj1538-89-03 16:13:00* Test Item Value Reference Range Interpretation Comments Anion Gap (test code = 48674-4) 12.8 8-16 [facility] CenterBlood Urea Suuctcij6019-57-01 16:13:00* Test Item Value Reference Range Interpretation Comments Blood Urea Nitrogen (test code = 3094-0) 19 7- [facility] CenterCreatinine2019-07-24 16:13:00* Test Item Value Reference Range Interpretation Comments Creatinine (test code = 2160-0) 0.80 0.57-1.11 [facility] CenterBUN/Creatinine Bmclr0141-17-81 16:13:00* Test Item Value Reference Range Interpretation Comments BUN/Creatinine Ratio (test code = 3097-3) 24 6- [facility] CenterEstimat Glomerular Filtration Rate 2019-03-03 16:13:00* Test Item Value Reference Range Interpretation Comments Estimat Glomerular Filtration Rate (test code = 411695718) > 60 >60 Ranges were taken from the National Kidney Disease Education Program and the [facility] [employer] literature.Reference ranges:60 or greater: Ztfcxn17-68 ( for 3 consecutive months): Chronic kidney disease 15 or less: Kidney failureVal Verde Regional Medical CenterGlucose Dwlko1255-84-19 16:13:00* Test Item Value Reference Range Interpretation Comments Glucose Level (test code = FHM4488) 380 74-118 H [facility] CenterCalcium Zvjzd3260-29-65 16:13:00* Test Item Value Reference Range Interpretation Comments Calcium Level (test code = 27584-6) 9.5 8.4-10.2 [facility] CenterMagnesium Kttit8619-78-88 16:13:00* Test Item Value Reference Range Interpretation Comments Magnesium Level (test code = 82921-8) 1.7 1.3-2.1 [facility] CenterTotal Jtkuyyjmu9758-12-83 16:13:00* Test Item Value Reference Range Interpretation Comments Total Bilirubin (test code = 1975-2) 0.5 0.2-1.2 [facility] CenterAspartate Amino Transf (AST/SGOT) 2019-03-03 16:13:00* Test Item Value Reference Range Interpretation Comments Aspartate Amino Transf (AST/SGOT) (test code = Aspartate Amino Transf (AST/SGOT)) 24 5-34 [facility] CenterAlanine Aminotransferase (ALT/SGPT) 2019-03-03 16:13:00* Test Item Value Reference Range Interpretation Comments Alanine Aminotransferase (ALT/SGPT) (test code = 1742-6) 44 0-55 [facility] CenterTomountain [facility] medical center Mfqhwpl0585-20-16 16:13:00* Test Item Value Reference Range Interpretation Comments Total Protein (test code = 2885-2) 7.9 6.5-8.1 [facility] CenterAlbumin2019-07-24 16:13:00* Test Item Value Reference Range Interpretation Comments Albumin (test code = 1751-7) 2.2 3.5-5.0 L [facility] CenterGlobulin2019-07-24 16:13:00* Test Item Value Reference Range Interpretation Comments Globulin (test code = 05461-1) 5.7 2.3-3.5 H [facility] CenterAlbumin/Globulin Ybaru1606-51-33 16:13:00 * Test Item Value Reference Range Interpretation Comments Albumin/Globulin Ratio (test code = 1759-0) 0.4 0.8-2.0 L [facility] CenterAlkaline Jtscbullmmy2726-76-70 16:13:00* Test Item Value Reference Range Interpretation Comments Alkaline Phosphatase (test code = 6768-6) 92 40-150 [facility] CenterMagnesium Sydlq3077-85-26 16:13:00* Test Item Value Reference Range Interpretation Comments Magnesium Level (test code = 78675-4) 1.7 1.3-2.1 [facility] CenterTotal Myatyhgsw6005-50-65 16:13:00* Test Item Value Reference Range Interpretation Comments Total Bilirubin (test code = 1975-2) 0.5 0.2-1.2 [facility] CenterAspartate Amino Transf (AST/SGOT) 2019-03-03 16:13:00* Test Item Value Reference Range Interpretation Comments Aspartate Amino Transf (AST/SGOT) (test code = Aspartate Amino Transf (AST/SGOT)) 24 5-34 [facility] CenterAlanine Aminotransferase (ALT/SGPT) 2019-03-03 16:13:00* Test Item Value Reference Range Interpretation Comments Alanine Aminotransferase (ALT/SGPT) (test code = 1742-6) 44 0-55 [facility] Erotooe1923-62-47 16:13:00* Test Item Value Reference Range Interpretation Comments Total Protein (test code = 2885-2) 7.9 6.5-8.1 [facility] CenterAlbumin2019-07-24 16:13:00* Test Item Value Reference Range Interpretation Comments Albumin (test code = 1751-7) 2.2 3.5-5.0 L [facility] CenterGlobulin2019-07-24 16:13:00* Test Item Value Reference Range Interpretation Comments Globulin (test code = 92224-2) 5.7 2.3-3.5 H [facility] CenterAlbumin/Globulin Hbstm1081-85-78 16:13:00 * Test Item Value Reference Range Interpretation Comments Albumin/Globulin Ratio (test code = 1759-0) 0.4 0.8-2.0 L [facility] CenterAlkaline Kibutkbigut4874-44-64 16:13:00* Test Item Value Reference Range Interpretation Comments Alkaline Phosphatase (test code = 6768-6) 92 40-150 [facility] CenterWhite Blood Xndfn3366-71-62 15:51:00* Test Item Value Reference Range Interpretation Comments White Blood Count (test code = 6690-2) 10.33 4.8-10.8 [facility] CenterRed Blood Mwbpl2486-34-94 15:51:00* Test Item Value Reference Range Interpretation Comments Red Blood Count (test code = 789-8) 5.33 3.6-5.1 H [facility] CenterHemoglobin2019-07-24 15:51:00* Test Item Value Reference Range Interpretation Comments Hemoglobin (test code = 42914-4) 14.8 12.0-16.0 [facility] CenterHematocrit2019-07-24 15:51:00* Test Item Value Reference Range Interpretation Comments Hematocrit (test code = 4544-3) 44.6 34.2-44.1 H [facility] CenterMean Corpuscular Jsbvoa6305-18-96 15:51:00* Test Item Value Reference Range Interpretation Comments Mean Corpuscular Volume (test code = 787-2) 83.7 81-99 [facility] CenterMean Corpuscular Fxjlpgjfhf3603-16-41 15:51:00* Test Item Value Reference Range Interpretation Comments Mean Corpuscular Hemoglobin (test code = 785-6) 27.8 28-32 L [facility] CenterMean Corpuscular Hemoglobin Concent 2019-03-03 15:51:00* Test Item Value Reference Range Interpretation Comments Mean Corpuscular Hemoglobin Concent (test code = 786-4) 33.2 31-35 [facility] CenterRed Cell Distribution Mnmvf3083-96-32 15:51:00* Test Item Value Reference Range Interpretation Comments Red Cell Distribution Width (test code = 48401-4) 13.5 11.7 -14.4 [facility] CenterPlatelet Wjfvq3780-86-24 15:51:00* Test Item Value Reference Range Interpretation Comments Platelet Count (test code = 777-3) 343 140-360 [facility] CenterNeutrophils (%) (Auto)2019-03-03 15:51:00 * Test Item Value Reference Range Interpretation Comments Neutrophils (%) (Auto) (test code = 23738-1) 67.6 38.7-80.0 [facility] CenterLymphocytes (%) (Auto)2019-03-03 15:51:00 * Test Item Value Reference Range Interpretation Comments Lymphocytes (%) (Auto) (test code = 736-9) 21.9 18.0-39.1 [facility] CenterMonocytes (%) (Auto)2019-03-03 15:51:00* Test Item Value Reference Range Interpretation Comments Monocytes (%) (Auto) (test code = 5905-5) 7.2 4.4-11.3 [facility] CenterEosinophils (%) (Auto)2019-03-03 15:51:00 * Test Item Value Reference Range Interpretation Comments Eosinophils (%) (Auto) (test code = 713-8) 2.2 0.0-6.0 [facility] CenterBasophils (%) (Auto)2019-03-03 15:51:00* Test Item Value Reference Range Interpretation Comments Basophils (%) (Auto) (test code = 706-2) 0.8 0.0-1.0 [facility] CenterIM GRANULOCYTES %2019-03-03 15:51:00* Test Item Value Reference Range Interpretation Comments IM GRANULOCYTES % (test code = IM GRANULOCYTES %) 0.3 0.0- 1.0 [facility] CenterNeutrophils # (Auto)2019-03-03 15:51:00* Test Item Value Reference Range Interpretation Comments Neutrophils # (Auto) (test code = 751-8) 7.0 2.1-6.9 H [facility] CenterLymphocytes # (Auto)2019-03-03 15:51:00* Test Item Value Reference Range Interpretation Comments Lymphocytes # (Auto) (test code = 44493-3) 2.3 1.0-3.2 [facility] CenterMonocytes # (Auto)2019-03-03 15:51:00* Test Item Value Reference Range Interpretation Comments Monocytes # (Auto) (test code = 742-7) 0.7 0.2-0.8 [facility] CenterEosinophils # (Auto)2019-03-03 15:51:00* Test Item Value Reference Range Interpretation Comments Eosinophils # (Auto) (test code = 711-2) 0.2 0.0-0.4 [facility] CenterBasophils # (Auto)2019-03-03 15:51:00* Test Item Value Reference Range Interpretation Comments Basophils # (Auto) (test code = 704-7) 0.1 0.0-0.1 [facility] CenterAbsolute Immature Granulocyte (auto 2019-03-03 15:51:00* Test Item Value Reference Range Interpretation Comments Absolute Immature Granulocyte (auto (allie t code = Absolute Immature Granulocyte (auto) 0.03 0-0.1 [facility] CenterUrine NCW9456-95-33 15:32:00* Test Item Value Reference Range Interpretation Comments Urine WBC (test code = 5821-4) 11-20 0-5 H [facility] CenterUrine WMH8025-28-25 15:32:00* Test Item Value Reference Range Interpretation Comments Urine RBC (test code = 25319-0) 6-10 0-5 H [facility] CenterUrine Llttjkkf3515-76-67 15:32:00* Test Item Value Reference Range Interpretation Comments Urine Bacteria (test code = 38880-4) MANY NONE H [facility] CenterUrine Epithelial Udcnh9033-27-40 15:32:00 * Test Item Value Reference Range Interpretation Comments Urine Epithelial Cells (test code = 50010-2) NONE [facility] BWM1747-32-05 15:32:00* Test Item Value Reference Range Interpretation Comments Urine WBC (test code = 5821-4) 11-20 0-5 [facility] [id number] 15:32:00* Test Item Value Reference Range Interpretation Comments Urine RBC (test code = 59624-7) 6-10 0-5 [facility] [id number] 15:32:00* Test Item Value Reference Range Interpretation Comments Urine Bacteria (test code = 14771-0) MANY NONE [facility] Epithelial [id number] 15:32:00 * Test Item Value Reference Range Interpretation Comments Urine Epithelial Cells (test code = 87647-8) [facility]ONE [facility] [id number] 15:17:00* Test Item Value Reference Range Interpretation Comments Urine Color (test code = 5778-6) YELLOW YELLOW [facility] [id number] 15:17:00* Test Item Value Reference Range Interpretation Comments Urine Clarity (test code = 02069-7) CLOUDY CLEAR H [facility] Specific [id number] 15:17:00 * Test Item Value Reference Range Interpretation Comments Urine Specific [place] (test code = 5811-5) 1.020 1.010-1.02 5 [facility] [id number] 15:17:00* Test Item Value Reference Range Interpretation Comments Urine pH (test code = 72562-0) 6 5-7 [facility] Leukocyte [id number] 15:17:00* Test Item Value Reference Range Interpretation Comments Urine Leukocyte Esterase (test code = 49285-8) SMALL NEGATIV E [facility] [id number] 15:17:00* Test Item Value Reference Range Interpretation Comments Urine Nitrite (test code = 75211-8) NEGATIVE NEGATIVE [facility] [id number] 15:17:00* Test Item Value Reference Range Interpretation Comments Urine Protein (test code = 67201-0) 3+ NEGATIVE H [facility] Glucose (UA)2019-03-03 15:17:00* Test Item Value Reference Range Interpretation Comments Urine Glucose (UA) (test code = 35228-7) 3+ NEGATIVE [facility] [id number] 15:17:00* Test Item Value Reference Range Interpretation Comments Urine Ketones (test code = 16929-1) NEGATIVE NEGATIVE [facility] [id number] 15:17:00* Test Item Value Reference Range Interpretation Comments Urine Urobilinogen (test code = 92904-9) 0.2 0.2-1 [facility] [id number] 15:17:00* Test Item Value Reference Range Interpretation Comments Urine Bilirubin (test code = 1977-8) NEGATIVE NEGATIVE [facility] [id number] 15:17:00* Test Item Value Reference Range Interpretation Comments Urine Blood (test code = 34425-9) MODERATE NEGATIVE [facility] [id number] 15:17:00* Test Item Value Reference Range Interpretation Comments Urine Color (test code = 5778-6) YELLOW YELLOW [facility] [id number] 15:17:00* Test Item Value Reference Range Interpretation Comments Urine Clarity (test code = 15072-0) CLOUDY CLEAR [facility] Specific [id number] 15:17:00 * Test Item Value Reference Range Interpretation Comments Urine Specific [place] (test code = 5811-5) 1.020 1.010-1.02 5 [facility] [id number] 15:17:00* Test Item Value Reference Range Interpretation Comments Urine pH (test code = 01152-4) 6 5-7 [facility] Leukocyte [id number] 15:17:00* Test Item Value Reference Range Interpretation Comments Urine Leukocyte Esterase (test code = 94625-5) SMALL NEGATIV E [facility] [id number] 15:17:00* Test Item Value Reference Range Interpretation Comments Urine Nitrite (test code = 85803-2) NEGATIVE NEGATIVE [facility] [id number] 15:17:00* Test Item Value Reference Range Interpretation Comments Urine Protein (test code = 17568-7) 3+ NEGATIVE [facility] Glucose (UA)2019-03-03 15:17:00* Test Item Value Reference Range Interpretation Comments Urine Glucose (UA) (test code = 55484-3) 3+ NEGATIVE [facility] [id number] 15:17:00* Test Item Value Reference Range Interpretation Comments Urine Ketones (test code = 35253-7) NEGATIVE NEGATIVE [facility] [id number] 15:17:00* Test Item Value Reference Range Interpretation Comments Urine Urobilinogen (test code = 43140-7) 0.2 0.2-1 [facility] [id number] 15:17:00* Test Item Value Reference Range Interpretation Comments Urine Bilirubin (test code = 1977-8) NEGATIVE NEGATIVE [facility] [id number] 15:17:00* Test Item Value Reference Range Interpretation Comments Urine Blood (test code = 93747-4) MODERATE NEGATIVE [facility]
[2020-03-26] MEDS ORDERED: DEXAMETHASONE SOD PHOS 10 MG/1 ML VIAL IV SCH (18:00)
[2020-03-26] MEDS ORDERED: ACETAMINOPHEN 325 MG TAB PO ONE (18:00)
[2020-03-26] MEDS ORDERED: ACETAMINOPHEN 650 MG SUPP PR ONE (18:12)
[2020-03-26 18:20] LABS: BASOPHILS # (AUTO) 0.1 (0.0-0.1); BASOPHILS % 0.5 % (0.0-1.0); HEMATOCRIT 41.6 % (34.2-44.1); HEMOGLOBIN 13.5 g/dL (12.0-16.0); LYMPHOCYTES # (AUTO) 1.3 (1.0-3.2); LYMPHOCYTES % 8.3 % (18.0-39.1); MEAN CORPUSCULAR HGB CONC 32.5 g/dL (31-35); MONOCYTES # (AUTO) 0.5 (0.2-0.8); MONOCYTES % 3.3 % (4.4-11.3); NEUTROPHILS # (AUTO) 13.3 (2.1-6.9); NEUTROPHILS % 87.1 % (38.7-80.0); PLATELET COUNT 436 x10e3/uL (140-360); RED CELL DISTRIBUTION WIDTH 16.5 % (11.7-14.4)
--- NOTE | 2020-03-26 18:26 | Emergency Department Note ---
History of Present Illnes History of Present Illness Chief Complaint: COVID PUI History of Present Illness This is a 54 year old female SOB. WEAK, FATIGUE, "SHAKING" PER SON. PT AWAKE, ALERT, ENGLISH ONLY. CONFUSED TO YR. PT WITH FEVER. 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 PT SATS 73% , PT PLACED ON VAPO THERM 30LPM FIO2 60% AND OXYGEN SATURATION NOW 100% PT HAS BEEN SICK FOR 3 DAYS . Historian: Patient, Family Member Arrival Mode: Car Onset (how long ago): day(s) (3) Location: ALL OVER Quality: FEVER, SOB, BODY ACHES, WEAKNESS Radiation: Reports non-radiation Severity: moderate Onset quality: gradual Duration (how long): day(s) (3) Timing of current episode: constant Progression: worsening Chronicity: new Context: Reports recent illness ( ABOVE) Relieving factors: none Exacerbating factors: movement Associated symptoms: Reports cough, Reports fever/chills, Reports malaise, Reports shortness of breath, Reports weakness Treatments prior to arrival: none Past Medical/Family History Physician Review I have reviewed the patient's past medical and family history. Any updates have been documented here. Past Medical History Recent Fever: Yes Clinical Suspicion of Infectio: Yes New/Unexplained Change in Ment: No Past Medical History: Hypertension, Diabetes, Liver Disease, Hyperlipedemia Past Surgical History: Social History Smoking Cessation: Never Smoker Alcohol Use: None Any Illegal Drug Use: No Physically hurt or threatened: No Family History Family history of heart diseas: No Other family history HTN,DM Other Last Tetanus: ood Review of Systems Review of Systems Constitutional: Reports as per HPI EENTM: Reports no symptoms Cardiovascular: Reports no symptoms Respiratory: Reports as per HPI Gastrointestinal: Reports no symptoms Genitourinary: Reports no symptoms Musculoskeletal: Reports no symptoms Integumentary: Reports no symptoms Neurological: Reports no symptoms Psychological: Reports no symptoms Endocrine: Reports no symptoms Hematological/Lymphatic: Reports no symptoms Physical Exam Related Data Allergies: Coded Allergies: No Known Allergies (Unverified , 01/21/16) Triage Vital Signs Vital Signs Date Time Temp Pulse Resp B/P (MAP) Pulse Ox O2 Delivery O2 Flow Rate FiO2 03/26/20 17:50 103.0 114 34 147/85 73 Room Air 03/26/20 18:13 60 Vital signs reviewed: Yes Physical Exam CONSTITUTIONAL Constitutional: Present well-developed, Present well-nourished, Present distressed (MODERATE, ), Present ill appearing HENT HENT: Present normocephalic, Present atraumatic, Present oropharynx clear/moist, Present nose normal HENT L/R: Present left ext ear normal, Present right ext ear normal EYES Eyes: Reports PERRL, Reports conjunctivae normal NECK Neck: Present ROM normal PULMONARY Pulmonary: Present effort normal, Present respiratory distress (MILD TACHYPNEA), Present other (BREATH SOUNDS DECREASED BILATERAL) CARDIOVASCULAR Cardiovascular: Present regular rhythm, Present heart sounds normal, Present capillary refill normal, Present normal rate GASTROINTESTINAL Abdominal: Present soft, Present nontender, Present bowel sounds normal GENITOURINARY Genitourinary: Present exam deferred SKIN Skin: Present warm, Present dry, Present erythema (to rlq of abdomen and below panus) MUSCULOSKELETAL Musculoskeletal: Present ROM normal NEUROLOGICAL Neurological: Present alert, Present oriented x 3, Present no gross motor or sensory deficits PSYCHOLOGICAL Psychological: Present mood/affect normal, Present judgement normal Results Laboratory Laboratory Laboratory Tests Test 03/26/20 20:20 03/26/20 18:00 Sodium Level 132 mmol/L (136-145) Potassium Level 4.6 mmol/L (3.5-5.1) Chloride Level 103 mmol/L (98-107) Carbon Dioxide Level 20 mmol/L (22-29) Anion Gap 13.6 mmol/L (8-16) Blood Urea Nitrogen 46 mg/dL (7-26) Creatinine 1.28 mg/dL (0.57-1.11) Estimat Glomerular Filtration Rate 44 ML/MIN (60-) BUN/Creatinine Ratio 36 (6-25) Glucose Level 157 mg/dL (74-118) Calcium Level 7.9 mg/dL (8.4-10.2) Magnesium Level 1.9 MG/DL (1.3-2.1) Total Bilirubin 0.3 mg/dL (0.2-1.2) Aspartate Amino Transf (AST/SGOT) 42 IU/L (5-34) Alanine Aminotransferase (ALT/SGPT) 45 IU/L (0-55) Alkaline Phosphatase 100 IU/L (40-150) Creatine Kinase 887 IU/L (29-168) Creatine Kinase MB 7.60 ng/mL (0-5.0) Troponin I 0.710 ng/mL (0-0.300) Total Protein 6.4 g/dL (6.5-8.1) Albumin 1.3 g/dL (3.5-5.0) Globulin 5.1 g/dL (2.3-3.5) Albumin/Globulin Ratio 0.3 (0.8-2.0) White Blood Count 15.32 x10e3/uL (4.8-10.8) Red Blood Count 5.20 x10e6/uL (3.6-5.1) Hemoglobin 13.5 g/dL (12.0-16.0) Hematocrit 41.6 % (34.2-44.1) Mean Corpuscular Volume 80.0 fL (81-99) Mean Corpuscular Hemoglobin 26.0 pg (28-32) Mean Corpuscular Hemoglobin Concent 32.5 g/dL (31-35) Red Cell Distribution Width 16.5 % (11.7-14.4) Platelet Count 436 x10e3/uL (140-360) Neutrophils (%) (Auto) 87.1 % (38.7-80.0) Lymphocytes (%) (Auto) 8.3 % (18.0-39.1) Monocytes (%) (Auto) 3.3 % (4.4-11.3) Eosinophils (%) (Auto) 0.0 % (0.0-6.0) Basophils (%) (Auto) 0.5 % (0.0-1.0) Neutrophils # (Auto) 13.3 (2.1-6.9) Lymphocytes # (Auto) 1.3 (1.0-3.2) Monocytes # (Auto) 0.5 (0.2-0.8) Eosinophils # (Auto) 0.0 (0.0-0.4) Basophils # (Auto) 0.1 (0.0-0.1) Absolute Immature Granulocyte (auto 0.13 x10e3/uL (0-0.1) Prothrombin Time 16.0 seconds (11.9-14.5) Prothromb Time International Ratio 1.21 Activated Partial Thromboplast Time 40.7 seconds (23.8-35.5) Urine Color Yellow (YELLOW) Urine Clarity Hazy (CLEAR) Urine pH 5.5 (5 - 7) Urine Specific [place] 1.025 (1.010-1.025) Urine Protein >=300 (NEGATIVE) Urine Glucose (UA) 1+ (NEGATIVE) Urine Ketones Negative (NEGATIVE) Urine Blood Large (NEGATIVE) Urine Nitrite Negative (NEGATIVE) Urine Bilirubin Small (NEGATIVE) Urine Urobilinogen 1 mg/dL (0.2 - 1) Urine Leukocyte Esterase Negative (NEGATIVE) Urine RBC 11-20 /HPF (0-5) Urine WBC 6-10 /HPF (0-5) Urine Epithelial Cells Moderate /LPF (NONE) Urine Amorphous Sediment Moderate (FEW) Urine Bacteria Moderate /HPF (NONE) Urine Coarse Granular Casts 1-5 (0) Urine Mucus Few (RARE) Lactic Acid Level 1.7 mmol/L (0.5-2.0) B-Type Natriuretic Peptide 347.2 pg/mL (0-100) Laboratory Tests Test 03/26/20 18:00 Lab results reviewed: Yes Imaging Imaging results reviewed: Yes Impressions EXAMINATION: CHEST SINGLE (PORTABLE) INDICATION: ^Y ^COUGH, FEVER, SOB, HYPOXIC ^[id number] ^[id number] COMPARISON: None FINDINGS: AP view TUBES and LINES: None. LUNGS: Lungs are well inflated. Diffuse bilateral lung haziness. PLEURA: No significant pleural effusion or pneumothorax. HEART AND MEDIASTINUM: The cardiomediastinal silhouette is enlarged. BONES AND SOFT TISSUES: No acute osseous lesion. Soft tissues are unremarkable. UPPER ABDOMEN: No free air under the diaphragm. IMPRESSION: Enlarged cardiac mediastinal silhouette with diffuse haziness of the bilateral lungs, representing edema and/or pneumonia in the appropriate clinical context. Signed by: Dr. 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 Date: Mar 26, 2020 Time: 18:03 Rhythm: sinus tachycardia Rate: tachycardia BPM: 105 QRS axis: normal Conduction: right bundle branch block ST segments normal: Yes T waves flattening: V1, V2, V3 Q waves: III, V1, V2 Clinical Impression: abnormal ECG Critical Care Time Total Critical Care Time (min): 31 Critcal care necessary due to: respiratory failure Critcal care time spent by me: develop tx plan w patient/surrogate, discussion w consultants, evaluation patient response to tx, examination of patient, obtaining hx from patient/surrogate, order/perform tx or interventions, order/review laboratory studies, order/review radiographic studies, pulse oximetry, re-evaluation of patient condition Assessment & Plan Medical Decision Making MDM PT WITH FEVER, BODY ACHES, SOB, AND COUGH FOR 3 DAYS. PT WITH COVID 19 SYMPTOMS, OXYGEN SATURATION 73 % ON ROOM AIR, PLACED ON VAPO THERM 30LPMN FIO2 60% and now oxygen saturation 100% cbc, cmp, cxr, ekg, cardiac enzymes, blood cultures, ua, urine culture, covid 19 ordered to eval for covid 19 infection, pneumonia, electrolyte abnormality, myocardial infarction. rocephin 1 gram iv ordered zithromax 500 mg iv ordered tylenol 650 mg ordered at 2001 pt bp 88/63 30cc/kg ns iv bolus ordered i spoke with dr lalito sterling, russell hare shebib admit to icu Reassessment Reassessment time: 21:19 Reassessment I DID A BEDSIDE FLUID RESUSCITATION EXAM CURRENT VITALS Date Time Temp Pulse Resp B/P (MAP) Pulse Ox O2 Delivery O2 Flow Rate FiO2 03/26/20 21:16 98.6 78 20 96/67 100 Vapotherm 03/26/20 18:13 60 03/26/20 17:45 30.0 Assessment & Plan Final Impression: (1) Cellulitis, abdominal wall (2) Suspected COVID-19 virus infection (3) Fever (4) Hypoxemia requiring supplemental oxygen (5) Septic shock (6) Viral pneumonia (7) Elevated troponin I level Depart Disposition: ADMITTED Last Vital Signs Date Time Temp Pulse Resp B/P (MAP) Pulse Ox O2 Delivery O2 Flow Rate FiO2 03/26/20 18:13 102 30 145/95 100 Vapotherm 60 03/26/20 17:50 103.0 Home Meds Reported Medications Ezetimibe (ZETIA) 10 Mg Tablet, 10 MG PO DAILY, #30 TAB 03/22/19 Atorvastatin Calcium (ATORVASTATIN CALCIUM) 80 Mg Tablet, 80 MG PO DAILY 03/19/19 Lisinopril (PRINAVIL / ZESTRIL) 20 Mg Tablet, 20 MG PO DAILY 03/19/19 Gabapentin (GABAPENTIN) 400 Mg Capsule, 400 MG PO BID 03/19/19 [Levemir] No Conflict Check 03/19/19 Insulin Aspart (NOVOLOG) 100 Units/1 Ml Inj 03/19/19 [Ymafr-5-Yfck] 1,000 MG No Conflict Check, 1000 MG PO DAILY 03/19/19 Metformin Hcl (METFORMIN HCL) 1,000 Mg Tablet, 1000 MG PO BID 03/19/19 Glimepiride (GLIMEPIRIDE) 4 Mg Tablet, 4 MG PO DAILY 03/19/19 Discontinued Reported Medications Cephalexin Monohydrate (KEFLEX) 500 Mg Capsule, 500 MG PO Q8H, #30 03/22/19 Acetaminophen With Codeine (TYLENOL WITH CODEINE #3 TABLET) 1 Each Tablet, 1 TAB PO Q6H PRN for MODERATE PAIN (4-6), #15 TAB 03/22/19 Medications in the ED Sodium Chloride 1,000 ml @ 0 mls/hr Q0M STAT IV ; Start 03/26/20 at 17:48; Stop 03/26/20 at 17:53; Status DC Acetaminophen 975 mg ONCE ONCE PO ; Start 03/26/20 at 18:00; Stop 03/26/20 at 18:01; Status DC Ceftriaxone Sodium 50 ml @ 100 mls/hr Q24H IV ; Start 03/26/20 at 18:00; Stop 04/02/20 at 17:59 Azithromycin 250 ml @ 200 mls/hr Q24H IV ; Start 03/26/20 at 18:30; Stop 04/02/20 at 18:29 Dexamethasone Sodium Phosphate 6 mg DAILY IV ; Start 03/26/20 at 18:00; Stop 04/02/20 at 17:59 Acetaminophen 650 mg STK-MED ONCE [place] ; Start 03/26/20 at 18:12; Stop 03/26/20 at 18:07; Status DC MANDIE KENNEY MD Mar 26, 2020 18:26
[2020-03-26] MEDS ORDERED: ACETAMINOPHEN 325 MG SUPP PR ONE (18:30)
[2020-03-26 18:31] LABS: INR 1.21; PARTIAL THROMBOPLASTIN TIME 40.7 seconds (23.8-35.5)
[2020-03-26 18:37] LABS: CLARITY,URINE HAZY (CLEAR); COLOR,URINE YELLOW (YELLOW)
[2020-03-26 18:38] LABS: BILIRUBIN,URINE SMALL (NEGATIVE); KETONES,URINE NEGATIVE (NEGATIVE); LEUKOCYTE ESTERASE ,URINE NEGATIVE (NEGATIVE); NITRITE,URINE NEGATIVE (NEGATIVE); PROTEIN,URINE DIPSTICK >=300 (NEGATIVE); URINE UROBILINOGEN 1 mg/dL (0.2 - 1)
[2020-03-26 18:39] LABS: AMORPHOUS SEDIMENT,URINE MODERATE (FEW); BACTERIA,URINE MODERATE /HPF; EPITHELIAL CELLS,URINE MODERATE /LPF
[2020-03-26 18:40] LABS: MUCUS,URINE FEW (RARE)
[2020-03-26 18:45] LABS: B-TYPE NATRIURETIC PEPTIDE2 347.2 pg/mL (0-100)
[2020-03-26] MEDS: AZITHROMYCIN 500MG/NS 250 ML 250 ML IV SCH (18:54)
[2020-03-26] MEDS: CEFTRIAXONE SOD 1 GM/NS 50 ML 50 ML IV SCH (18:54)
--- NOTE | 2020-03-26 19:11 | Diagnostic Imaging Report ---
EXAMINATION: CHEST SINGLE (PORTABLE) INDICATION: ^Y ^COUGH, FEVER, SOB, HYPOXIC ^[id number] ^[id number] COMPARISON: None FINDINGS: AP view TUBES and LINES: None. LUNGS: Lungs are well inflated. Diffuse bilateral lung haziness. PLEURA: No significant pleural effusion or pneumothorax. HEART AND MEDIASTINUM: The cardiomediastinal silhouette is enlarged. BONES AND SOFT TISSUES: No acute osseous lesion. Soft tissues are unremarkable. UPPER ABDOMEN: No free air under the diaphragm. IMPRESSION: Enlarged cardiac mediastinal silhouette with diffuse haziness of the bilateral lungs, representing edema and/or pneumonia in the appropriate clinical context. Signed by: Dr. Ceasar Davis MD on 03/26/2020 7:08 PM
[2020-03-26] MEDS ORDERED: SODIUM CHLORIDE 0.9% 1000ML 1,000 ML ONE (19:58)
[2020-03-26] MEDS ORDERED: SODIUM CHLORIDE 0.9% 1000ML 1,000 ML IV ONE (20:00)
[2020-03-26] MEDS: DEXAMETHASONE SOD PHOS INJ 4 MG/ML VIAL IV SCH (20:00)
[2020-03-26 20:57] LABS: ALBUMIN 1.3 g/dL (3.5-5.0); ALBUMIN/GLOBULIN RATIO 0.3 (0.8-2.0); ANION GAP 13.6 mmol/L (8-16); CALCIUM 7.9 mg/dL (8.4-10.2); CREATININE, SERUM 1.28 mg/dL (0.57-1.11); MAGNESIUM 1.9 MG/DL (1.3-2.1); POTASSIUM 4.6 mmol/L (3.5-5.1)
[2020-03-26 21:04] LABS: CREATINE KINASE MB 7.6 ng/mL (0-5.0)
--- OUTSIDE RECORDS SUMMARY | 2020-03-26 21:58 | XMS REPORT | Continuity of Care Document ---
Author Author [facility] t Organization [facility] Address [address] [place] [address] Phone Unavailable Care Team Providers Care Harp Repairer Name Role Phone NONSTAFF PCP Unavailable Brie KENNEY Attphys Unavailable DAHU, S JISONAM Attphys Unavailable DAHU, S JIRIES Admphys Unavailable Payers Payer Name Policy Type Policy Number Effective Date Expiration Date Sabino Alaniz [facility] [place] [id number] 2018 00:00: 00 Formerly [facility] Problems Condition Name Condition Details Condition Category Status Onset Date Resolution Date Last Treatment Date Treating Clinician Comments Source Dehydration Dehydration Problem Active 2016-01-22 00:00:00 [facility] Diarrhea Diarrhea Problem Active 2016-01-22 00:00:00 [facility] Hyperglycemia Hyperglycemia Problem Active 2016-01-22 00:00:00 [facility] Urinary tract infection UTI (urinary tract infection) Problem Active 2016-01-22 00:00:00 [facility] Vomiting Vomiting Problem Active 2016-01-22 00:00:00 [facility] Allergies, Adverse Reactions, Alerts This patient has [...] as needed for Moderate Pipe n (4-6) [facility] Atorvastatin Calcium 80 Mg Tablet Atorvastatin Calcium 80 Mg Tablet Yes 80 Daily [facility] Cephalexin Monohydrate (Keflex) 500 Mg Capsule Cephale frankie Monohydrate (Keflex) 500 Mg Capsule Yes 500 Every 8 Hours [facility] Ezetimibe (Zetia) 10 Mg Tablet Ezetimibe (Zetia) 10 Mg Tablet Yes 10 Daily [facility] Gabapentin 400 Mg Capsule Gabapentin 400 Mg Capsule Yes 400 Twice A Day [facility] Glimepiride 4 Mg Tablet Glimepiride 4 Mg Tablet Yes 4 Daily [facility] Insulin Aspart (Novolog) 100 Units/1 Ml Inj Insulin As part (Novolog) 100 Units/1 Ml Inj Yes [facility] Levemir Levemir Yes [facility] Lisinopril (Prinavil / Zestril) 20 Mg Tablet Lisinopri l (Prinavil / Zestril) 20 Mg Tablet Yes 20 Daily [facility] Metformin Hcl 1,000 Mg Tablet Metformin Hcl 1,000 Mg Tablet Yes 1000 Twice A Day [facility] Rpbdp-1-Bznl 1,000 Mg Ezqvf-0-Ttli 1,000 Mg Yes 1000 Daily [facility] Clindamycin Hcl 300 Mg Capsule, 300 Mg Oral Clindamyci n Hcl 300 Mg Capsule, 300 Mg Oral 2019-03-22 00:00:00 No 300 Three Times A Da y [facility] Ezetimibe (Zetia) 10 Mg Tablet, 10 Mg Oral Ezetimibe ( Zetia) 10 Mg Tablet, 10 Mg Oral 2019-03-22 00:00:00 No 10 Daily [facility] Procedures Procedure Date / Time Performed Performing Clinician [facility] e CT extremity lower right w contrast 2019-03-20 00:00:00 ROBIN EDGAR [facility] EMERGENCY DEPT VISIT 2019-03-03 00:00:00 [facility] Encounters Start Date/Time End Date/Time Encounter Type Admission Type [facility] Care Department Encounter ID Source 2019-03-19 19:19:00 2019-03-22 19:53:00 Discharged Inpatient 1 ENDER EDGAR [facility] [id number] [facility] 2019-03-08 08:28:00 2019-03-08 08:28:00 Registered Clinic [facility] [id number] [facility] 2019-03-03 14:07:00 2019-03-03 19:00:00 Departed Emergency Room [facility] [id number] [facility] Results Test Description Test Time Test Comments Results Result Comments Source CHEST SINGLE (PORTABLE) 2020-03-26 19:07:00 [facility] [address] [address] Patient Name: BRIDGETT BAXTER MR #: [id number] : 1965 Age/Sex: 54/F Req #: [id number] Adm Physician: Ordered by: LORIE BOYCE MD Report #: [id number] Location: ER Room/Bed: Procedure: [id number] DX/CHEST SINGLE (PORTABLE) Exam Date: 03/26/20 Exam Time: 1819 REPORT STATUS: Signed EXAMINATION: CHEST SINGLE (PORTABLE) INDICATION: Y COUGH, FEVER, SOB, HYPOXIC [id number] COMPARISON: None FINDINGS: AP view TUBES and LINES: None. LUNGS: Lungs are well inflated. Diffuse bilateral lung haziness. PLEURA: No significant pleural effusion or pneumothorax. HEART AND MEDIASTINUM: The cardiomediastinal silhouette is enlarged. BONES AND SOFT TISSUES: No acute osseous lesion. Soft tissues are unremarkable. UPPER ABDOMEN: No free air under the diaphragm. IMPRESSION: Enlarged cardiac mediastinal silhouette with diffuse haziness of the bilateral lungs, representing edema and/or pneumonia in the appropriate clinical context. Signed by: Dr. Ceasar Campos MD on 03/26/2020 7:08 PM Dictated By: CEASAR CAMPOS MD 07 Transcribed By: CYNTHIA on 03/26/201907 COPY TO: LORIE BOYCE MD SCR MAMM BILATERAL TAHIRA CAD DIGITAL 2019-06-02 09:03:33 - SCR MAMM BILATERAL TAHIRA CAD DIGITALBILATERAL DIGITAL SCREENING MAMMOGRAM 3D/2D WITH CAD: 06/02/2019CLINICAL: Asymptomatic. Digital breast tomosynthesis was performed in addition to routine CC and MLO views. Current mammographic images were evaluated by either a [employer] M-Vu or a [employer] Image[employer] CAD (computer aided detection system). Comparison is made to exams dated 06/01/2018 mammogram and 03/06/2017 mammogram - [facility]. There are scattered fibroglandular tissues in both breasts. There are benign calcifications in both breasts. No suspicious mass, architectural distortion, malignant type calcification, or lymph node abnormality detected. Breast architecture is stable compared to prior exams.IMPRESSION: BENIGNThere is no mammographic evidence of malignancy. Resume annual screening mammography in one year. Malena hallman/penrad:06/02/2019 09:03:33 Restaurant Server: Mario [place], [facility] sent: BIRADS 1-2 Normal Mammogram BI-RADS: 2 Benign Bedside Glucose 2019-03-22 16:17:00 Test Item Bedside Glucose (test code = 73870-2) 172 70-120 H Meter ID: [id number] [facility]Vancom[facility] Level Aostmd9544-82-44 08:37:00* Test Item Value Reference Range Interpretation Comments Vancomycin Level Trough (test code = 4092-3) 10.7 5.0-10.0 HH Results repeated and called to REGINALDO JOSE at 0834 on 03/22/19 by Reno Erickson . Read back and verified.[facility] CenterCT RIGHT LOWER EXTREMITY [id number] 10:44:[address] [address] Patient Name: DERIK BAXTER MR #: [id number] : 1965 Age/Sex: 53/F Req #: [id number] Adm Physician: ENDER EDGAR MD Ordered by: ENDER EDGAR MD Report #: [id number] Location: MED/SURG2 Room/Bed: [facility] Procedure: CT/CT RIGHT LOWER EXTREMITY W Exam Date: Exam Ti me: REPORT STATUS: Signed CT Lo wer extremity right with contrast, with reconstructions. CPT code: 11193, 7 6376 Indications: Cellulitis, evaluate for abscess [...] 1048 Transcri bed By: CYNTHIA on 03/21/19 1043 COPY TO: ENDER EDGAR MD Sodium Egibp6313-67-45 06:51:00* Test Item Value Reference Range Interpretation Comments Sodium Level (test code = 2951-2) 143 136-145 [facility]Potassium Bujqy7719-28-93 06:51:00* Test Item Value Reference Range Interpretation Comments Potassium Level (test code = 2823-3) 4.3 3.5-5.1 [facility] HospitalChloride Zilxd7129-33-88 06:51:00* Test Item Value Reference Range Interpretation Comments Chloride Level (test code = 2075-0) 108 98-107 H [facility] HospitalCarbon Dioxide Vjvvi7825-68-35 06:51:00* Test Item Value Reference Range Interpretation Comments Carbon Dioxide Level (test code = 2028-9) 26 22-29 [facility] HospitalAnion Xpj6464-50-21 06:51:00* Test Item Value Reference Range Interpretation Comments Anion Gap (test code = 86756-6) 13.3 8-16 [facility] HospitalBlood Urea Oudvvrci9960-27-97 06:51:00* Test Item Value Reference Range Interpretation Comments Blood Urea Nitrogen (test code = 3094-0) 22 7-26 [facility] HospitalCreatinine2019-08-11 06:51:00* Test Item Value Reference Range Interpretation Comments Creatinine (test code = 2160-0) 0.82 0.57-1.11 [facility] HospitalBUN/Creatinine Brikr0243-57-43 06:51:00* Test Item Value Reference Range Interpretation Comments BUN/Creatinine Ratio (test code = 3097-3) 27 6-25 H [facility] HospitalEstimat Glomerular Filtration Rate 2019-03-21 06:51:00* Test Item Value Reference Range Interpretation Comments Estimat Glomerular Filtration Rate (test code = 980222600) > 60 >60 Ranges were taken from the National Kidney Disease Education Program and the [facility] literature.Reference ranges:60 or greater: Npiphl94-18 ( for 3 consecutive months): Chronic kidney disease 15 or less: Kidney failureFormerly [facility] HospitalGlucose Apsxd8390-36-17 06:51:00* Test Item Value Reference Range Interpretation Comments Glucose Level (test code = KLO9885) 165 74-118 H [facility] HospitalCalcium Mflys6510-62-46 06:51:00* Test Item Value Reference Range Interpretation Comments Calcium Level (test code = 80477-0) 8.7 8.4-10.2 [facility] HospitalWhite Blood Njuox9052-60-55 06:31:00* Test Item Value Reference Range Interpretation Comments White Blood Count (test code = 6690-2) 6.47 4.8-10.8 [facility] HospitalRed Blood Zefvv0334-04-08 06:31:00* Test Item Value Reference Range Interpretation Comments Red Blood Count (test code = 789-8) 4.18 3.6-5.1 [facility] HospitalHemoglobin2019-08-11 06:31:00* Test Item Value Reference Range Interpretation Comments Hemoglobin (test code = 92678-3) 11.5 12.0-16.0 L [facility] HospitalHematocrit2019-08-11 06:31:00* Test Item Value Reference Range Interpretation Comments Hematocrit (test code = 4544-3) 36.2 34.2-44.1 [facility] HospitalMean Corpuscular Khdrpc5459-37-40 06:31:00* Test Item Value Reference Range Interpretation Comments Mean Corpuscular Volume (test code = 787-2) 86.6 81-99 [facility] HospitalMean Corpuscular Kxdstkvcef2220-92-14 06:31:00* Test Item Value Reference Range Interpretation Comments Mean Corpuscular Hemoglobin (test code = 785-6) 27.5 28-32 L [facility] HospitalMean Corpuscular Hemoglobin Concent 2019-03-21 06:31:00* Test Item Value Reference Range Interpretation Comments Mean Corpuscular Hemoglobin Concent (test code = 786-4) 31.8 31-35 [facility] HospitalRed Cell Distribution Irsha9042-55-49 06:31:00* Test Item Value Reference Range Interpretation Comments Red Cell Distribution Width (test code = 69139-3) 13.4 11.7 -14.4 [facility] HospitalPlatelet Brbtl5548-09-31 06:31:00* Test Item Value Reference Range Interpretation Comments Platelet Count (test code = 777-3) 365 140-360 H [facility] HospitalNeutrophils (%) (Auto)2019-03-21 06:31:00 * Test Item Value Reference Range Interpretation Comments Neutrophils (%) (Auto) (test code = 32060-6) 54.5 38.7-80.0 [facility] HospitalLymphocytes (%) (Auto)2019-03-21 06:31:00 * Test Item Value Reference Range Interpretation Comments Lymphocytes (%) (Auto) (test code = 736-9) 32.8 18.0-39.1 [facility] HospitalMonocytes (%) (Auto)2019-03-21 06:31:00* Test Item Value Reference Range Interpretation Comments Monocytes (%) (Auto) (test code = 5905-5) 7.0 4.4-11.3 [facility] HospitalEosinophils (%) (Auto)2019-03-21 06:31:00 * Test Item Value Reference Range Interpretation Comments Eosinophils (%) (Auto) (test code = 713-8) 4.5 0.0-6.0 [facility] HospitalBasophils (%) (Auto)2019-03-21 06:31:00* Test Item Value Reference Range Interpretation Comments Basophils (%) (Auto) (test code = 706-2) 1.2 0.0-1.0 H [facility] HospitalIM GRANULOCYTES %2019-03-21 06:31:00* Test Item Value Reference Range Interpretation Comments IM GRANULOCYTES % (test code = IM GRANULOCYTES %) 0.0 0.0- 1.0 [facility] HospitalNeutrophils # (Auto)2019-03-21 06:31:00* Test Item Value Reference Range Interpretation Comments Neutrophils # (Auto) (test code = 751-8) 3.5 2.1-6.9 [facility] HospitalLymphocytes # (Auto)2019-03-21 06:31:00* Test Item Value Reference Range Interpretation Comments Lymphocytes # (Auto) (test code = 28004-0) 2.1 1.0-3.2 [facility] HospitalMonocytes # (Auto)2019-03-21 06:31:00* Test Item Value Reference Range Interpretation Comments Monocytes # (Auto) (test code = 742-7) 0.5 0.2-0.8 [facility] HospitalEosinophils # (Auto)2019-03-21 06:31:00* Test Item Value Reference Range Interpretation Comments Eosinophils # (Auto) (test code = 711-2) 0.3 0.0-0.4 [facility] HospitalBasophils # (Auto)2019-03-21 06:31:00* Test Item Value Reference Range Interpretation Comments Basophils # (Auto) (test code = 704-7) 0.1 0.0-0.1 [facility] HospitalAbsolute Immature Granulocyte (auto 2019-03-21 06:31:00* Test Item Value Reference Range Interpretation Comments Absolute Immature Granulocyte (auto (allie t code = Absolute Immature Granulocyte (auto) 0 0-0.1 [facility] HospitalBlood Lcxmnmr5983-85-53 15:40:00* Test Item Value Reference Range Interpretation Comments Blood Culture (test code = 42447202) NO GROWTH AFTER 5 DAYS, FINAL REPORT [facility]odium Hwfkp6761-40-58 16:13:00* Test Item Value Reference Range Interpretation Comments Sodium Level (test code = 2951-2) 133 136-145 L [facility] HospitalPotassium Pbape6021-16-49 16:13:00* Test Item Value Reference Range Interpretation Comments Potassium Level (test code = 2823-3) 3.8 3.5-5.1 [facility] HospitalChloride Hgqzr4372-57-06 16:13:00* Test Item Value Reference Range Interpretation Comments Chloride Level (test code = 2075-0) 96 98-107 L [facility] HospitalCarbon Dioxide Hunub8628-73-34 16:13:00* Test Item Value Reference Range Interpretation Comments Carbon Dioxide Level (test code = 2028-9) 28 22-29 [facility] HospitalAnion Ozp9344-49-96 16:13:00* Test Item Value Reference Range Interpretation Comments Anion Gap (test code = 31755-8) 12.8 8-16 [facility] HospitalBlood Urea Seoeytdt2578-31-49 16:13:00* Test Item Value Reference Range Interpretation Comments Blood Urea Nitrogen (test code = 3094-0) 19 7-26 [facility] HospitalCreatinine2019-07-24 16:13:00* Test Item Value Reference Range Interpretation Comments Creatinine (test code = 2160-0) 0.80 0.57-1.11 [facility] HospitalBUN/Creatinine Jfeji9293-41-03 16:13:00* Test Item Value Reference Range Interpretation Comments BUN/Creatinine Ratio (test code = 3097-3) 24 02-02 [facility] HospitalEstimat Glomerular Filtration Rate 2019-03-03 16:13:00* Test Item Value Reference Range Interpretation Comments Estimat Glomerular Filtration Rate (test code = 335857572) > 60 >60 Ranges were taken from the National Kidney Disease Education Program and the [facility] Kid[facility] Foundation literature.Reference ranges:60 or greater: Kviykz26-10 ( for 3 consecutive months): Chronic kidney disease 15 or less: Kidney failureFormerly [facility] HospitalGlucose Kbyab8462-17-27 16:13:00* Test Item Value Reference Range Interpretation Comments Glucose Level (test code = WWV1787) 380 74-118 H [facility] HospitalCalcium Rceyx3359-26-13 16:13:00* Test Item Value Reference Range Interpretation Comments Calcium Level (test code = 30176-4) 9.5 8.4-10.2 [facility] HospitalMagnesium Uhzwc9125-01-11 16:13:00* Test Item Value Reference Range Interpretation Comments Magnesium Level (test code = 36927-0) 1.7 1.3-2.1 [facility] HospitalTotal Qcyhbzzum2760-02-13 16:13:00* Test Item Value Reference Range Interpretation Comments Total Bilirubin (test code = 1975-2) 0.5 0.2-1.2 [facility] HospitalAspartate Amino Transf (AST/SGOT) 2019-03-03 16:13:00* Test Item Value Reference Range Interpretation Comments Aspartate Amino Transf (AST/SGOT) (test code = Aspartate Amino Transf (AST/SGOT)) 24 5-34 [facility] HospitalAlanine Aminotransferase (ALT/SGPT) 2019-03-03 16:13:00* Test Item Value Reference Range Interpretation Comments Alanine Aminotransferase (ALT/SGPT) (test code = 1742-6) 44 0-55 [facility] HospitalTotal Vcsxoer3928-04-64 16:13:00* Test Item Value Reference Range Interpretation Comments Total Protein (test code = 2885-2) 7.9 6.5-8.1 [facility] HospitalAlbumin2019-07-24 16:13:00* Test Item Value Reference Range Interpretation Comments Albumin (test code = 1751-7) 2.2 3.5-5.0 L [facility] HospitalGlobulin2019-07-24 16:13:00* Test Item Value Reference Range Interpretation Comments Globulin (test code = 28241-1) 5.7 2.3-3.5 H [facility] HospitalAlbumin/Globulin Ojdbk5791-28-10 16:13:00 * Test Item Value Reference Range Interpretation Comments Albumin/Globulin Ratio (test code = 1759-0) 0.4 0.8-2.0 L [facility] HospitalAlkaline Pfjhaeswfdb2169-34-61 16:13:00* Test Item Value Reference Range Interpretation Comments Alkaline Phosphatase (test code = 6768-6) 92 40-150 [facility] HospitalMagnesium Vsxfj3990-50-02 16:13:00* Test Item Value Reference Range Interpretation Comments Magnesium Level (test code = 03159-6) 1.7 1.3-2.1 [facility] HospitalTotal Lljnonpzx5443-13-96 16:13:00* Test Item Value Reference Range Interpretation Comments Total Bilirubin (test code = 1974-2) 0.5 0.2-1.2 [facility] HospitalAspartate Amino Transf (AST/SGOT) 2019-03-03 16:13:00* Test Item Value Reference Range Interpretation Comments Aspartate Amino Transf (AST/SGOT) (test code = Aspartate Amino Transf (AST/SGOT)) 24 5-34 [facility] HospitalAlanine Aminotransferase (ALT/SGPT) 2019-03-03 16:13:00* Test Item Value Reference Range Interpretation Comments Alanine Aminotransferase (ALT/SGPT) (test code = 1742-6) 44 0-55 [facility] HospitalTotal Tbtctvt1324-04-33 16:13:00* Test Item Value Reference Range Interpretation Comments Total Protein (test code = 2885-2) 7.9 6.5-8.1 [facility] HospitalAlbumin2019-07-24 16:13:00* Test Item Value Reference Range Interpretation Comments Albumin (test code = 1751-7) 2.2 3.5-5.0 L [facility] HospitalGlobulin2019-07-24 16:13:00* Test Item Value Reference Range Interpretation Comments Globulin (test code = 27330-1) 5.7 2.3-3.5 H [facility] HospitalAlbumin/Globulin Llmjl7147-39-04 16:13:00 * Test Item Value Reference Range Interpretation Comments Albumin/Globulin Ratio (test code = 1759-0) 0.4 0.8-2.0 L [facility] HospitalAlkaline Wgqgkgiehok4717-20-42 16:13:00* Test Item Value Reference Range Interpretation Comments Alkaline Phosphatase (test code = 6768-6) 92 40-150 [facility] HospitalWhite Blood Cdhnq9729-94-95 15:51:00* Test Item Value Reference Range Interpretation Comments White Blood Count (test code = 6690-2) 10.33 4.8-10.8 [facility] HospitalRed Blood Rhyxz1958-36-72 15:51:00* Test Item Value Reference Range Interpretation Comments Red Blood Count (test code = 789-8) 5.33 3.6-5.1 H [facility] HospitalHemoglobin2019-07-24 15:51:00* Test Item Value Reference Range Interpretation Comments Hemoglobin (test code = 54044-1) 14.8 12.0-16.0 [facility] HospitalHematocrit2019-07-24 15:51:00* Test Item Value Reference Range Interpretation Comments Hematocrit (test code = 4544-3) 44.6 34.2-44.1 H [facility] HospitalMean Corpuscular Enywiz7653-01-12 15:51:00* Test Item Value Reference Range Interpretation Comments Mean Corpuscular Volume (test code = 787-2) 83.7 81-99 [facility] HospitalMean Corpuscular Fnlkerjutr2028-10-15 15:51:00* Test Item Value Reference Range Interpretation Comments Mean Corpuscular Hemoglobin (test code = 785-6) 27.8 28-32 L [facility] HospitalMean Corpuscular Hemoglobin Concent 2019-03-03 15:51:00* Test Item Value Reference Range Interpretation Comments Mean Corpuscular Hemoglobin Concent (test code = 786-4) 33.2 31-35 [facility] HospitalRed Cell Distribution Ulfsm4929-07-13 15:51:00* Test Item Value Reference Range Interpretation Comments Red Cell Distribution Width (test code = 60923-5) 13.5 11.7 -14.4 [facility] HospitalPlatelet Onizq8742-03-48 15:51:00* Test Item Value Reference Range Interpretation Comments Platelet Count (test code = 777-3) 343 140-360 [facility] HospitalNeutrophils (%) (Auto)2019-03-03 15:51:00 * Test Item Value Reference Range Interpretation Comments Neutrophils (%) (Auto) (test code = 49872-3) 67.6 38.7-80.0 [facility] HospitalLymphocytes (%) (Auto)2019-03-03 15:51:00 * Test Item Value Reference Range Interpretation Comments Lymphocytes (%) (Auto) (test code = 736-9) 21.9 18.0-39.1 [facility] HospitalMonocytes (%) (Auto)2019-03-03 15:51:00* Test Item Value Reference Range Interpretation Comments Monocytes (%) (Auto) (test code = 5905-5) 7.2 4.4-11.3 [facility] HospitalEosinophils (%) (Auto)2019-03-03 15:51:00 * Test Item Value Reference Range Interpretation Comments Eosinophils (%) (Auto) (test code = 713-8) 2.2 0.0-6.0 [facility] HospitalBasophils (%) (Auto)2019-03-03 15:51:00* Test Item Value Reference Range Interpretation Comments Basophils (%) (Auto) (test code = 706-2) 0.8 0.0-1.0 [facility] HospitalIM GRANULOCYTES %2019-03-03 15:51:00* Test Item Value Reference Range Interpretation Comments IM GRANULOCYTES % (test code = IM GRANULOCYTES %) 0.3 0.0- 1.0 [facility] HospitalNeutrophils # (Auto)2019-03-03 15:51:00* Test Item Value Reference Range Interpretation Comments Neutrophils # (Auto) (test code = 751-8) 7.0 2.1-6.9 H [facility] HospitalLymphocytes # (Auto)2019-03-03 15:51:00* Test Item Value Reference Range Interpretation Comments Lymphocytes # (Auto) (test code = 91032-2) 2.3 1.0-3.2 [facility] HospitalMonocytes # (Auto)2019-03-03 15:51:00* Test Item Value Reference Range Interpretation Comments Monocytes # (Auto) (test code = 742-7) 0.7 0.2-0.8 [facility] HospitalEosinophils # (Auto)2019-03-03 15:51:00* Test Item Value Reference Range Interpretation Comments Eosinophils # (Auto) (test code = 711-2) 0.2 0.0-0.4 [facility] HospitalBasophils # (Auto)2019-03-03 15:51:00* Test Item Value Reference Range Interpretation Comments Basophils # (Auto) (test code = 704-7) 0.1 0.0-0.1 [facility] HospitalAbsolute Immature Granulocyte (auto 2019-03-03 15:51:00* Test Item Value Reference Range Interpretation Comments Absolute Immature Granulocyte (auto (allie t code = Absolute Immature Granulocyte (auto) 0.03 0-0.1 [facility] HospitalUrine KJX0349-87-39 15:32:00* Test Item Value Reference Range Interpretation Comments Urine WBC (test code = 5821-4) 11-20 0-5 H [facility] HospitalUrine UKO0528-37-55 15:32:00* Test Item Value Reference Range Interpretation Comments Urine RBC (test code = 37475-3) 6-10 0-5 [facility] [id number] 15:32:00* Test Item Value Reference Range Interpretation Comments Urine Bacteria (test code = 16075-3) MANY NONE H [facility] Epithelial [id number] 15:32:00 * Test Item Value Reference Range Interpretation Comments Urine Epithelial Cells (test code = 24181-4) NONE NONE [facility] [id number] 15:32:00* Test Item Value Reference Range Interpretation Comments Urine WBC (test code = 5821-4) 11-20 0-5 H [facility] [id number] 15:32:00* Test Item Value Reference Range Interpretation Comments Urine RBC (test code = 19610-8) 6-10 0-5 H [facility] [id number] 15:32:00* Test Item Value Reference Range Interpretation Comments Urine Bacteria (test code = 43445-3) MANY NONE H [facility] Epithelial [id number] 15:32:00 * Test Item Value Reference Range Interpretation Comments Urine Epithelial Cells (test code = 81139-6) NONE NONE [facility] [id number] 15:17:00* Test Item Value Reference Range Interpretation Comments Urine Color (test code = 5778-6) YELLOW YELLOW [facility] [id number] 15:17:00* Test Item Value Reference Range Interpretation Comments Urine Clarity (test code = 01906-7) CLOUDY CLEAR H [facility] Specific [id number] 15:17:00 * Test Item Value Reference Range Interpretation Comments Urine Specific [place] (test code = 5811-5) 1.020 1.010-1.02 5 [facility] [id number] 15:17:00* Test Item Value Reference Range Interpretation Comments Urine pH (test code = 75915-0) 6 5-7 [facility] Leukocyte [id number] 15:17:00* Test Item Value Reference Range Interpretation Comments Urine Leukocyte Esterase (test code = 50564-3) SMALL NEGATIV E [facility] [id number] 15:17:00* Test Item Value Reference Range Interpretation Comments Urine Nitrite (test code = 03034-4) NEGATIVE NEGATIVE [facility] [id number] 15:17:00* Test Item Value Reference Range Interpretation Comments Urine Protein (test code = 44464-4) 3+ NEGATIVE H [facility] Glucose (UA)2019-03-03 15:17:00* Test Item Value Reference Range Interpretation Comments Urine Glucose (UA) (test code = 13693-9) 3+ NEGATIVE [facility] [id number] 15:17:00* Test Item Value Reference Range Interpretation Comments Urine Ketones (test code = 30704-6) NEGATIVE NEGATIVE [facility] [id number] 15:17:00* Test Item Value Reference Range Interpretation Comments Urine Urobilinogen (test code = 87219-8) 0.2 0.2-1 [facility] [id number] 15:17:00* Test Item Value Reference Range Interpretation Comments Urine Bilirubin (test code = 1977-8) NEGATIVE NEGATIVE [facility] [id number] 15:17:00* Test Item Value Reference Range Interpretation Comments Urine Blood (test code = 47389-1) MODERATE NEGATIVE [facility] [id number] 15:17:00* Test Item Value Reference Range Interpretation Comments Urine Color (test code = 5778-6) YELLOW YELLOW [facility] [id number] 15:17:00* Test Item Value Reference Range Interpretation Comments Urine Clarity (test code = 00634-5) CLOUDY CLEAR H [facility] Specific [id number] 15:17:00 * Test Item Value Reference Range Interpretation Comments Urine Specific [place] (test code = 5811-5) 1.020 1.010-1.02 5 [facility] [id number] 15:17:00* Test Item Value Reference Range Interpretation Comments Urine pH (test code = 70689-3) 6 5-7 [facility] Leukocyte [id number] 15:17:00* Test Item Value Reference Range Interpretation Comments Urine Leukocyte Esterase (test code = 72340-9) SMALL NEGATIV E [facility] [id number] 15:17:00* Test Item Value Reference Range Interpretation Comments Urine Nitrite (test code = 06816-0) NEGATIVE NEGATIVE [facility] [id number] 15:17:00* Test Item Value Reference Range Interpretation Comments Urine Protein (test code = 68936-9) 3+ NEGATIVE H [facility] Glucose (UA)2019-03-03 15:17:00* Test Item Value Reference Range Interpretation Comments Urine Glucose (UA) (test code = 54896-5) 3+ NEGATIVE [facility] [id number] 15:17:00* Test Item Value Reference Range Interpretation Comments Urine Ketones (test code = 69271-6) NEGATIVE NEGATIVE [facility] [id number] 15:17:00* Test Item Value Reference Range Interpretation Comments Urine Urobilinogen (test code = 12161-4) 0.2 0.2-1 [facility] [id number] 15:17:00* Test Item Value Reference Range Interpretation Comments Urine Bilirubin (test code = 1977-8) NEGATIVE NEGATIVE [facility] [id number] 15:17:00* Test Item Value Reference Range Interpretation Comments Urine Blood (test code = 47203-2) MODERATE NEGATIVE [facility]
[2020-03-26] MEDS: SODIUM CHLORIDE 0.9% 1000ML 1,000 ML IV SCH (22:00)
[2020-03-26] MEDS ORDERED: DEXTROSE 50% SYRINGE 50 ML IV PRN (22:00)
[2020-03-26] MEDS ORDERED: DEXAMETHASONE 10MG/ML PF INJ IV SCH (22:00)
[2020-03-26] MEDS ORDERED: AZITHROMYCIN 500MG/SOD CHL 0.9% 250ML BAG IV SCH (22:00)
[2020-03-26] MEDS ORDERED: ASPIRIN 81 MG CHEW TAB PO ONE (22:00)
[2020-03-26] MEDS ORDERED: CEFTRIAXONE SOD 1 GRAM/0.9% SOD CHL 50ML BAG IV SCH (22:00)
[2020-03-26] MEDS: VANCOMYCIN 1GM/NS 250 ML 250 ML IV SCH (22:00)
[2020-03-27] VITALS (23 sets, daily range): BP systolic 88–137; BP diastolic 62–105
[2020-03-27 04:51] LABS: BASOPHILS # (AUTO) 0.1 (0.0-0.1); BASOPHILS % 0.5 % (0.0-1.0); HEMATOCRIT 39.8 % (34.2-44.1); HEMOGLOBIN 12.4 g/dL (12.0-16.0); LYMPHOCYTES # (AUTO) 1.4 (1.0-3.2); LYMPHOCYTES % 7.8 % (18.0-39.1); MEAN CORPUSCULAR HEMOGLOBIN 26.4 pg (28-32); MEAN CORPUSCULAR HGB CONC 31.2 g/dL (31-35); MONOCYTES # (AUTO) 0.6 (0.2-0.8); MONOCYTES % 3.6 % (4.4-11.3); NEUTROPHILS # (AUTO) 15.3 (2.1-6.9); PLATELET COUNT 265 x10e3/uL (140-360); RED BLOOD COUNT 4.69 x10e6/uL (3.6-5.1); RED CELL DISTRIBUTION WIDTH 16.3 % (11.7-14.4)
[2020-03-27 05:00] LABS: MEAN CORPUSCULAR VOLUME 84.9 fL (81-99)
[2020-03-27 05:35] LABS: ALBUMIN 1.2 g/dL (3.5-5.0); ALBUMIN/GLOBULIN RATIO 0.2 (0.8-2.0); ANION GAP 16.9 mmol/L (8-16); CALCIUM 7.9 mg/dL (8.4-10.2); CREATININE, SERUM 1.25 mg/dL (0.57-1.11); POTASSIUM 4.9 mmol/L (3.5-5.1)
[2020-03-27 05:54] LABS: CREATINE KINASE MB 10.2 ng/mL (0-5.0)
[2020-03-27] MEDS: VANCOMYCIN 1GM/NS 250 ML 250 ML IV SCH (06:48)
[2020-03-27] MEDS: SODIUM CHLORIDE 0.9% 1000ML 1,000 ML IV SCH ×2 (07:25→22:39)
[2020-03-27] MEDS: INSULIN REGULAR, HUMAN 100 UNIT/1 ML 3ML VIAL SQ SCH ×4 (07:25→21:00)
[2020-03-27] MEDS: DEXAMETHASONE SOD PHOS INJ 4 MG/ML VIAL IV SCH (07:33)
--- NOTE | 2020-03-27 08:03 | NUR ---
this is an infectious disease consultation. [place] patient currently intensive care unit. patient seen and examined chart reviewed Discussed with the medical team This is a 54 year old female SOB. WEAK, FATIGUE, "SHAKING" PER SON. PT AWAKE, ALERT, BHUTANESE ONLY. CONFUSEDthe patient came to the emergency room discussed with ER physician yesterday please refer to the orders TO YR. PT WITH FEVER. NO MEDS ORACLE CONSULTANT. PT SATS 73% , PT PLACED ON VAPO THERM 30LPM FIO2 60% AND OXYGEN SATURATION NOW 100% PT HAS BEEN SICK FOR 3 DAYS . Historian: Patient, Family Member Arrival Mode: Car Onset (how long ago): day(s) (3) Location: ALL OVER Quality: FEVER, SOB, BODY ACHES, WEAKNESS Radiation: Reports non-radiation Severity: moderate Onset quality: gradual Duration (how long): day(s) (3) Timing of current episode: constant Progression: worsening Chronicity: new Context: Reports recent illness ( ABOVE) Relieving factors: none Exacerbating factors: movement Associated symptoms: Reports cough, Reports fever/chills, Reports malaise, Reports shortness of breath, Reports weakness Treatments prior to arrival: none Past Medical/Family History Physician Review I have reviewed the patient's past medical and family history. Any updates have been documented here. Past Medical History Recent Fever: Yes Clinical Suspicion of Infectio: Yes New/Unexplained Change in Ment: No Past Medical History: Hypertension, Diabetes, Liver Disease, Hyperlipedemia Past Surgical History: Social History Smoking Cessation: Never Smoker Alcohol Use: None Any Illegal Drug Use: No Physically hurt or threatened: No Family History Family history of heart diseas: No Other family history HTN,DM Other Last Tetanus: ood physical examination she is unknownof bored vitals stable afebrile HEENT she has not pick neck supple chest few rhonchi bilaterally heart was noted to be observed postoperative extremities no edema skin no Failure Respiratory failure Covid 19 sUPERIMPOSED BACTERIAL PNEUMONIA CELLULITIS ABDOMINAL WALL aCUTE KIDNEY INJURY/CHRONIC KIDNEY DISEASE aNTIBIOTIC CHOICE WAS DISCUSSED WITH THE er PHYSICIAN YESTERDAY PLEASE REFER TO THE ORDERS VANCOMYCIN AND rOCEPHIN AND AZITHROMYCIN FOLLOW VANCOMYCIN LEVEL Patient is not a candidate for RMZV SHE IS ON HIGH OXYGEN WOULD NOT BE BENEFICIAL cONTINUE ANTIBIOTIC CONTINUE dECADRON lOVENOX SUPPORTIVE CARE
[2020-03-27 12:50] LABS: CREATINE KINASE MB 18.1 ng/mL (0-5.0)
--- NOTE | 2020-03-27 13:44 | Consultation ---
DATE OF CONSULTATION: 03/27/2020 Pulmonary Critical Care Consultation CHIEF COMPLAINT: Dyspnea and congestion. HISTORY OF PRESENT ILLNESS: The patient is a 54-year-old woman. She has a history of hypertension and diabetes. She required hospitalization at [facility] last year for an abscess in her calf. She now returns to the hospital complaining of some dyspnea and cough. She does not complain of fevers. She has no chest pain. PAST MEDICAL HISTORY: 1. Diabetes. 2. Hypertension. 3. Hyperlipidemia. PAST SURGICAL HISTORY: Noncontributory. FAMILY HISTORY: Hypertension and diabetes. ALLERGIES: NO KNOWN DRUG ALLERGIES. SOCIAL HISTORY: The patient is not a smoker. The patient is not a drinker. REVIEW OF SYSTEMS: The patient is not having any fevers. She does not complain of headache. She has some dyspnea and some nonproductive cough. She is not complaining of chest pain. She has some abdominal redness and pain. She has no nausea and vomiting. She has no leg edema. PHYSICAL EXAMINATION: VITAL SIGNS: The patient is afebrile. The blood pressure is 102/68 and saturation is 100%. She is currently on a Vapotherm. Her pulse rate is 69. HEENT: Shows no facial swelling or erythema. LYMPHATIC: Shows no submandibular, cervical, or supraclavicular adenopathy. CARDIAC: Reveals regular rate and rhythm with normal S1, S2. LUNGS: Auscultation of lungs reveals crackles at the bases. There is no wheezing. ABDOMEN: Soft, nontender. There is no rebound or guarding. EXTREMITIES: Shows no leg edema or calf tenderness. There is no cyanosis or clubbing. LABORATORY DATA: BUN to creatinine ratio is 50 to 1.25. Carbon dioxide is 16 and the sodium is 132. Albumin is 1.2, and the troponin I is 0.833. White blood cell count is 17.6 and hemoglobin is 12.4. The platelet count is 265. RADIOGRAPHIC DATA: Chest x-ray shows enlarged cardiac silhouette with diffuse haziness in the lungs suggestive of possible pulmonary edema. IMPRESSION: 1. Heart failure unspecified. 2. Possible bacterial pneumonia. 3. Cellulitis of the abdominal wall. 4. Acute kidney injury. 5. Elevated troponins. PLAN: 1. Continue Vapotherm. 2. The patient to receive echocardiogram and Cardiology consultation. 3. The patient is on Zithromax and Rocephin through Infectious Disease. She also received vancomycin. 4. Await COVID testing. 5. Continue to monitor creatinine. MD AIDAN De Santiago/KELLI /[id number]
[2020-03-27] MEDS: AZITHROMYCIN 500MG/NS 250 ML 250 ML IV SCH (17:50)
[2020-03-27] MEDS: ENOXAPARIN SOD INJ 40 MG/0.4 ML SYR SC SCH (17:50)
[2020-03-27] MEDS: CEFTRIAXONE SOD 1 GM/NS 50 ML 50 ML IV SCH (17:50)
[2020-03-27] MEDS ORDERED: ONDANSETRON HCL INJ 2MG/ML 2ML 2 MG/ML VIAL IV PRN (21:30)
[2020-03-28] VITALS (19 sets, daily range): BP systolic 80–141; BP diastolic 55–100
--- NOTE | 2020-03-28 03:17 | Consultation ---
DATE OF CONSULTATION: 03/27/2020 HISTORY OF PRESENT ILLNESS: The patient is here for shortness of breath. The patient comes in with 2 days history of fever, chills, and shortness of breath. The patient comes into the emergency room where she is being admitted. She is currently in Intensive Care Unit. When she first came, she was hypotensive, but apparently when she first came, there was redness and swelling and she was confused, when she first came. But when I saw her, she is currently alert and oriented. She is in Intensive Care Unit, but she looks much better and has no complaints. PAST MEDICAL HISTORY: She denies. PAST SURGICAL HISTORY: She denies. ALLERGIES: NKA. SOCIAL HISTORY: There is no smoking, drug abuse, or alcohol abuse. FAMILY HISTORY: Otherwise unremarkable. PHYSICAL EXAMINATION: GENERAL: Currently alert and oriented. VITAL SIGNS: Stable. Currently afebrile. HEENT: She is not icteric. NECK: Supple. CHEST: Few crackles bilaterally. HEART: S1, S2. ABDOMEN: Soft. Bowel sounds present. EXTREMITIES: No edema. SKIN: No rash. LABORATORY DATA: When she first came, her white count was 15, hemoglobin 15. Her COVID-19 is still pending. Sodium 132, creatinine of 1.28. Liver enzyme, AST was 42. IMPRESSION: 1. When she first came, there was cellulitis, but when I examined her, there is no redness. 2. Pneumonia, bacteria, on azithromycin and Rocephin. 3. Hypoxemia. I was told she had positive COVID, I do not see it. She is currently on dexamethasone, await COVID PCR to confirm. Give her isolation. 4. Continue supportive care. Continue IV fluid. Discussed with the medical team. We will follow. MD DINAH Joiner/KELLI /[id number]
--- NOTE | 2020-03-28 03:22 | Consultation ---
DATE OF CONSULTATION: 03/27/2020 Cardiac Consultation REASON FOR CONSULTATION: Elevated troponin at 0.7 and 0.83. HISTORY OF PRESENT ILLNESS: This is a 54-year-old lady, who is known with diabetes mellitus of many years duration, obesity, hypertension, repeated cellulitis, recently was at this institution on March 19 with cellulitis of the lower extremity. She was treated and she was dismissed home on medication. The patient came back because she is having fevers, chills, not feeling well, very weak, exhausted, unable to stand. In the emergency room, her oxygen saturation was very low in the 70s. Her chest x-ray showing bilateral infiltrates suggestive of possible COVID infection. Her temperature was as high as 103. Her troponin came back at 0.71 and 0.833. Her BNP only at 347. Cardiac consultation is obtained. I visited with the patient. She is having the above-mentioned symptoms. She is weak, exhausted, and no energy. REVIEW OF SYSTEMS: GENERAL: Fever, chills, weakness, poor appetite. HEENT: Decreased vision. PULMONARY AND CARDIAC: Shortness of breath, headache, cough. No angina. No pericardiac chest pain. She has some chest pain. GI: Poor appetite. : Increased frequency of urination. MUSCULOSKELETAL: Aches and pain all over. ENDOCRINE: The patient is diabetic. SOCIAL HISTORY: She is . She is nonsmoker and non-alcohol drinker. PAST MEDICAL HISTORY: Hypertension, hyperlipidemia, diabetes mellitus, cellulitis of the right lower extremity on 03/19/2019. CURRENT MEDICATIONS: Lipitor 80 mg a day, Zetia 10 mg a day, Helix-3, lisinopril 20 mg a day, gabapentin 400 mg twice a day, glimepiride 4 mg a day, Levemir, NovoLog, metformin 1000 mg twice a day. ALLERGIES: NONE. FAMILY HISTORY: Positive for hypertension and diabetes mellitus. PHYSICAL EXAMINATION: VITAL SIGNS: Height of 5 feet 2 inches, weight of 117, blood pressure 90/70, heart rate of 90, respiratory rate of 18, T-max of 102. LABORATORY DATA: Sodium of 132, potassium 4.9, BUN of 50, creatinine of 1.25. White blood cell count of 17,000, hemoglobin 12.4, hematocrit 39,000, platelet count of 265,000. EKG showing sinus tachycardia. Right bundle branch block. BNP of 347. CK total of 887, MB of 7.6, troponin of 0.71 and 0.833 upper normal in this lab 0.3. IMPRESSION AND PLAN: 1. Cellulitis of the abdomen and leg as per ER description, discussed with Dr. Albrecht, who examined the patient. He thinks it has improved dramatically, possibly from the antibiotics. 2. Coronavirus disease infection high on the list with the abnormal chest x-ray. 3. Diabetes mellitus. 4. Hypertension. 5. Demand myocardial infarction. 6. Very high probability of coronary artery disease. From a cardiac point of view, my recommendation will be for aspirin 81 mg a day, observing patient vital signs and oxygenation, depending on her course further steps to be done. An echocardiogram will be helpful as well as venous Doppler. We will follow the patient's progression with you and would like to thank you for your kind referral. Of note, Dr. Albrecht was quite of help. He examined the patient and we discussed the case together. MD STEPHIE Morales/KELLI /[id number]
[2020-03-28 04:38] LABS: BASOPHILS # (AUTO) 0.1 (0.0-0.1); BASOPHILS % 0.4 % (0.0-1.0); HEMATOCRIT 45.1 % (34.2-44.1); HEMOGLOBIN 13.6 g/dL (12.0-16.0); LYMPHOCYTES # (AUTO) 0.7 (1.0-3.2); LYMPHOCYTES % 3.3 % (18.0-39.1); MEAN CORPUSCULAR HEMOGLOBIN 25.5 pg (28-32); MEAN CORPUSCULAR HGB CONC 30.2 g/dL (31-35); MEAN CORPUSCULAR VOLUME 84.5 fL (81-99); MONOCYTES % 4.5 % (4.4-11.3); NEUTROPHILS # (AUTO) 20.2 (2.1-6.9); NEUTROPHILS % 91.2 % (38.7-80.0); PLATELET COUNT 328 x10e3/uL (140-360); RED BLOOD COUNT 5.34 x10e6/uL (3.6-5.1)
[2020-03-28 05:00] LABS: ALBUMIN 1.2 g/dL (3.5-5.0); ALBUMIN/GLOBULIN RATIO 0.2 (0.8-2.0); ANION GAP 15.7 mmol/L (8-16); CALCIUM 8.2 mg/dL (8.4-10.2); CREATININE, SERUM 1.17 mg/dL (0.57-1.11); POTASSIUM 4.7 mmol/L (3.5-5.1)
[2020-03-28] MEDS: VANCOMYCIN 1GM/NS 250 ML 250 ML IV SCH (05:52)
[2020-03-28] MEDS: INSULIN REGULAR, HUMAN 100 UNIT/1 ML 3ML VIAL SQ SCH ×4 (08:07→21:00)
[2020-03-28] MEDS: DEXAMETHASONE SOD PHOS INJ 4 MG/ML VIAL IV SCH (08:09)
--- NOTE | 2020-03-28 08:25 | Diagnostic Imaging Report ---
Examination: Single AP view of the chest. COMPARISON: 03/26/2020 INDICATION: Congestive heart failure DISCUSSION: Lungs remain reasonably well inflated. Perihilar interstitial opacities are stable compared to prior. More focal airspace disease in the left lower lobe with loss of the hemidiaphragmatic contour also unchanged. Small bilateral pleural effusions are suspected. Stable moderate enlargement of the cardiac silhouette. No acute osseous abnormalities. IMPRESSION: Overall stable enlargement of the cardiac silhouette with interstitial pulmonary edema and small bilateral pleural effusions. Retrocardiac airspace disease likely reflects atelectasis. Signed by: Dr. David Friend M.D. on 03/28/2020 8:22 AM
--- NOTE | 2020-03-28 09:08 | NUR ---
progress notes March 28, 2020 patient seen and examined chart reviewed Patient is feeling better Her physical examination is currently alert oriented vitals stable currently afebrile HEENT normocephalic neck supple chest few crackles she still edematous ITAL SIGNS: The blood pressure is 117/78, saturation is 99% on nasal cannula. HEENT: Shows no facial swelling or erythema. LYMPHATIC: Shows no submandibular, cervical, or supraclavicular adenopathy. CARDIAC: Reveals regular rate and rhythm with normal S1, S2. LUNGS: Auscultation of lungs reveals crackles at the bases. There is no wheezing. ABDOMEN: Soft, nontender. There is no rebound or guarding. EXTREMITIES: Shows no leg edema or calf tenderness. LABORATORY DATA: BUN to creatinine ratio is 50 to 1.17. Carbon dioxide is 17. Albumin is 1.2. White blood cell count is 22.1, hemoglobin is 13.6, and platelet count is 328. RADIOGRAPHIC DATA: Chest x-ray shows cardiomegaly with some pulmonary edema and CHF. IMPRESSION: 1. Oajkj-zx-qoupxmj systolic congestive heart failure. 2. Cellulitis of the abdominal wall. 3. Acute kidney injury. 4. Possible bacterial pneumonia. Impression generalized edema Cellulitis abdominal wall and admission seems to be better Sepsis in remission since resolved Continue with antibiotic continue supportive care Diuresis
[2020-03-28 10:36] LABS: BAND NEUTROPHILS % (MANUAL) 1 %; LYMPHOCYTES % (MANUAL) 1 % (19-48); MONOCYTES % (MANUAL) 3 % (3.4-9.0); NEUTROPHILS % (MANUAL) 95 % (40-74); PLATELET ESTIMATE ADEQUATE; PLATELET MORPHOLOGY COMMENT NORMAL
[2020-03-28 10:38] LABS: POIKILOCYTOSIS SLIGHT; RBC MORPHOLOGY COMMENT NORMAL
[2020-03-28] MEDS ORDERED: FUROSEMIDE INJ 10 MG/ML 2 ML VIAL IV ONE (10:58)
[2020-03-28] MEDS: ASPIRIN 81 MG ENTERIC COATED PO SCH (12:00)
[2020-03-28] MEDS: CLOPIDOGREL BISULFATE 75 MG TAB PO SCH (12:00)
[2020-03-28] MEDS: CARVEDILOL 3.125 MG TAB PO SCH (17:06)
[2020-03-28] MEDS: CEFTRIAXONE SOD 1 GM/NS 50 ML 50 ML IV SCH (17:06)
[2020-03-28] MEDS: AZITHROMYCIN 500MG/NS 250 ML 250 ML IV SCH (17:06)
[2020-03-28] MEDS: ENOXAPARIN SOD INJ 40 MG/0.4 ML SYR SC SCH (17:06)
--- NOTE | 2020-03-28 17:40 | Progress Note ---
DATE: 03/28/2020 SUBJECTIVE: The patient is still on 3 L of oxygen. She had an echocardiogram that showed a decreased ejection fraction. PHYSICAL EXAMINATION: VITAL SIGNS: The blood pressure is 117/78, saturation is 99% on nasal cannula. HEENT: Shows no facial swelling or erythema. LYMPHATIC: Shows no submandibular, cervical, or supraclavicular adenopathy. CARDIAC: Reveals regular rate and rhythm with normal S1, S2. LUNGS: Auscultation of lungs reveals crackles at the bases. There is no wheezing. ABDOMEN: Soft, nontender. There is no rebound or guarding. EXTREMITIES: Shows no leg edema or calf tenderness. LABORATORY DATA: BUN to creatinine ratio is 50 to 1.17. Carbon dioxide is 17. Albumin is 1.2. White blood cell count is 22.1, hemoglobin is 13.6, and platelet count is 328. RADIOGRAPHIC DATA: Chest x-ray shows cardiomegaly with some pulmonary edema and CHF. IMPRESSION: 1. Tsnrr-kc-xkitwya systolic congestive heart failure. 2. Cellulitis of the abdominal wall. 3. Acute kidney injury. 4. Possible bacterial pneumonia. PLAN: 1. Continue diuretics. 2. Await re-evaluation by Cardiology. 3. Continue antibiotics. 4. Continue to monitor creatinine. Abilio Franco MD [facility]/MODL /[id number]
[2020-03-28] MEDS: INSULIN GLARGINE 100 UNITS/ML VIAL SQ SCH (21:00)
--- NOTE | 2020-03-28 21:50 | NUR ---
transferred patient to [facility], stable
--- NOTE | 2020-03-28 22:00 | NUR ---
Report received and patient transferred from ICU to [facility] room 197. Patient A&Ox3, oriented to room and environment. No issues or concerns noted. Instructed to call for assistance or on the onset of pain or SOB. Call light within reach. [place] to bedside drainage. Will continue to monitor.
[2020-03-29] VITALS (9 sets, daily range): BP systolic 102–118; BP diastolic 74–98
[2020-03-29 04:38] LABS: BASOPHILS # (AUTO) 0.1 (0.0-0.1); BASOPHILS % 0.4 % (0.0-1.0); HEMATOCRIT 43.3 % (34.2-44.1); LYMPHOCYTES # (AUTO) 1.1 (1.0-3.2); LYMPHOCYTES % 5.9 % (18.0-39.1); MEAN CORPUSCULAR HEMOGLOBIN 25.8 pg (28-32); MEAN CORPUSCULAR VOLUME 86.1 fL (81-99); MONOCYTES # (AUTO) 1.7 (0.2-0.8); MONOCYTES % 8.6 % (4.4-11.3); NEUTROPHILS # (AUTO) 16.1 (2.1-6.9); NEUTROPHILS % 84.2 % (38.7-80.0); PLATELET COUNT 314 x10e3/uL (140-360); RED BLOOD COUNT 5.03 x10e6/uL (3.6-5.1); RED CELL DISTRIBUTION WIDTH 17.3 % (11.7-14.4)
[2020-03-29 04:58] LABS: ALBUMIN 1.2 g/dL (3.5-5.0); ALBUMIN/GLOBULIN RATIO 0.2 (0.8-2.0); CALCIUM 8.2 mg/dL (8.4-10.2); CHOL/HDL RATIO 3.7 (3.0-3.6); CREATININE, SERUM 1.18 mg/dL (0.57-1.11)
[2020-03-29] MEDS ORDERED: SODIUM CHLORIDE 0.9% 250ML 250 ML ONE (05:46)
[2020-03-29] MEDS: VANCOMYCIN 1GM/NS 250 ML 250 ML IV SCH (06:00)
--- NOTE | 2020-03-29 07:15 | NUR ---
Report and walking rounds completed with oncoming nurse. Patient in bed with call light within reach. No issues or concerns noted.
[2020-03-29 07:21] LABS: THYROID STIMULATING HORMONE 0.529 uIU/mL (0.350-4.940)
[2020-03-29] MEDS: INSULIN REGULAR, HUMAN 100 UNIT/1 ML 3ML VIAL SQ SCH ×4 (07:30→21:00)
[2020-03-29] MEDS: DEXAMETHASONE SOD PHOS INJ 4 MG/ML VIAL IV SCH (09:28)
[2020-03-29] MEDS: FUROSEMIDE 40 MG TAB PO SCH (09:29)
[2020-03-29] MEDS: CLOPIDOGREL BISULFATE 75 MG TAB PO SCH (09:29)
[2020-03-29] MEDS: ASPIRIN 81 MG ENTERIC COATED PO SCH (09:29)
[2020-03-29] MEDS: CARVEDILOL 3.125 MG TAB PO SCH ×2 (09:45→17:45)
[2020-03-29] MEDS: INSULIN GLARGINE 100 UNITS/ML VIAL SQ SCH ×2 (09:59→21:00)
--- NOTE | 2020-03-29 14:35 | NUR ---
infectious disease progress note Patient seen and examined chart reviewed patient is feeling better Review of systems unremarkable She still have edema and abdomen lower extremity No new complaints Her physical examination SIGNS: The blood pressure is 117/78, saturation is 99% on nasal cannula. HEENT: Shows no facial swelling or erythema. LYMPHATIC: Shows no submandibular, cervical, or supraclavicular adenopathy. CARDIAC: Reveals regular rate and rhythm with normal S1, S2. LUNGS: Auscultation of lungs reveals crackles at the bases. There is no wheezing. ABDOMEN: Soft, nontender. There is no rebound or guarding. EXTREMITIES: Shows edema bilateral lower extremities as well as abdomen LABORATORY DATA: BUN to creatinine ratio is 50 to 1.17. Carbon dioxide is 17. Albumin is 1.2. White blood cell count is 22.1, hemoglobin is 13.6, and platelet count is 328. RADIOGRAPHIC DATA: Chest x-ray shows cardiomegaly with some pulmonary edema and CHF. IMPRESSION: 1. Jreiv-cp-xpncrqi systolic congestive heart failure.still with edema continue with diuresis 2. Cellulitis of the abdominal wall.resolved 3. Acute kidney injury. 4. Possible bacterial pneumonia. and changed to oral antibiotic from infectious disease point of view would recommend aggressive diuresis
[2020-03-29] MEDS: ENOXAPARIN SOD INJ 40 MG/0.4 ML SYR SC SCH (17:39)
--- NOTE | 2020-03-29 19:00 | NUR ---
Handoff report to oncoming nurse, informed 1800 Zithromax needs to be give, nurse verbalized understanding
[2020-03-29] MEDS: CEFTRIAXONE SOD 1 GM/NS 50 ML 50 ML IV SCH (19:11)
[2020-03-29] MEDS: AZITHROMYCIN 500MG/NS 250 ML 250 ML IV SCH (19:30)
--- NOTE | 2020-03-29 20:00 | NUR ---
Received change of shift report from AM nurse. Patient in bed. Denies pain at this time.
[2020-03-30] VITALS (9 sets, daily range): BP systolic 125–156; BP diastolic 80–108
--- NOTE | 2020-03-30 01:29 | NUR ---
Patient resting quitly at this time.
[2020-03-30] MEDS: VANCOMYCIN 1GM/NS 250 ML 250 ML IV SCH (06:00)
--- NOTE | 2020-03-30 06:51 | NUR ---
Patient resting quitly at this time. Continue monitor.
[2020-03-30] MEDS: INSULIN REGULAR, HUMAN 100 UNIT/1 ML 3ML VIAL SQ SCH ×4 (07:30→21:10)
[2020-03-30 08:44] LABS: BASOPHILS # (AUTO) 0.1 (0.0-0.1); BASOPHILS % 0.3 % (0.0-1.0); EOSINOPHILS # (AUTO) 0.1 (0.0-0.4); EOSINOPHILS % 0.3 % (0.0-6.0); HEMOGLOBIN 13.1 g/dL (12.0-16.0); LYMPHOCYTES # (AUTO) 1.6 (1.0-3.2); LYMPHOCYTES % 10.3 % (18.0-39.1); MEAN CORPUSCULAR HEMOGLOBIN 25.4 pg (28-32); MEAN CORPUSCULAR HGB CONC 29.8 g/dL (31-35); MEAN CORPUSCULAR VOLUME 85.4 fL (81-99); MONOCYTES # (AUTO) 1.6 (0.2-0.8); MONOCYTES % 10.6 % (4.4-11.3); NEUTROPHILS # (AUTO) 11.7 (2.1-6.9); NEUTROPHILS % 77.1 % (38.7-80.0); PLATELET COUNT 366 x10e3/uL (140-360); RED BLOOD COUNT 5.15 x10e6/uL (3.6-5.1); RED CELL DISTRIBUTION WIDTH 17.7 % (11.7-14.4)
[2020-03-30] MEDS: INSULIN GLARGINE 100 UNITS/ML VIAL SQ SCH ×2 (09:00→21:25)
[2020-03-30] MEDS: FUROSEMIDE 40 MG TAB PO SCH (09:39)
[2020-03-30] MEDS: DEXAMETHASONE SOD PHOS INJ 4 MG/ML VIAL IV SCH (09:39)
[2020-03-30] MEDS: CLOPIDOGREL BISULFATE 75 MG TAB PO SCH (09:39)
[2020-03-30] MEDS: ASPIRIN 81 MG ENTERIC COATED PO SCH (09:39)
[2020-03-30] MEDS: CARVEDILOL 3.125 MG TAB PO SCH ×2 (09:48→17:46)
[2020-03-30 10:41] LABS: ANION GAP 16.4 mmol/L (8-16); CALCIUM 8.6 mg/dL (8.4-10.2); CREATININE, SERUM 1.03 mg/dL (0.57-1.11)
[2020-03-30 10:43] LABS: POTASSIUM 5.4 mmol/L (3.5-5.1)
[2020-03-30 10:52] LABS: ANISOCYTOSIS SLIGHT; LYMPHOCYTES % (MANUAL) 6 % (19-48); MONOCYTES % (MANUAL) 8 % (3.4-9.0); NEUTROPHILS % (MANUAL) 86 % (40-74); NUCLEATED RED BLOOD CELLS 5; OVALOCYTES FEW
[2020-03-30 10:53] LABS: ELLIPTOCYTE, RBC SLIGHT; PLATELET ESTIMATE SLIGHTLY INCREASED; PLATELET MORPHOLOGY COMMENT NORMAL; RBC MORPHOLOGY COMMENT ABNORMAL
[2020-03-30] MEDS ORDERED: SOD POLYSTYRENE SULFONATE SUSP 15 GM/60 ML BTL PO ONE (11:30)
--- NOTE | 2020-03-30 11:30 | NUR ---
RECEIVED CALL FROM DR. VALLES TO ASSESS IF THE PT MEETS CRITERIA FOR AN LTACH. CM CALLED TO [facility]. SPOKE Randa FAUSTIN. STATES PT HAS BENEFITS FOR LTACH AND SNF. STATES THE LTACH WOULD BE THE SAME AN INPT STAY. REF # [id number]. CALL TO THE PT'S RM. NO ANSWER. CALL TO THE PT PHONE @ [phone]. THE ANSWERED. THE FATHER, SON / CHAPO AND CAMILLA ALL DISCUSSED W LTAC AN OPTION. INFORMED OF CHOICES. INFORMED DR. VALLES ASKED FOR [facility]. ADDRESS WAS GIVEN AND FAMILY DISCUSSED. INQUIRED ABOUT COVID PT'S. INFORMED THEM COVID PT'S ARE HOUSED SEPARATELY; JUST [facility] DOES. VERBALIZED UNDERSTANDING. THE ; JERROD ROPER, GAVE CONSENT FOR [facility] LTACH. CALL TO KARL CHILD TO INFORM OF THIS.
--- NOTE | 2020-03-30 13:15 | NUR ---
REFERRAL FAXED TO [facility] @ OFF: [phone] / FAX: [phone]. NOTIFIED INESSA / KELLY. MOT INITIATED
--- NOTE | 2020-03-30 13:30 | NUR ---
PATIENT ONLY TOOK 30 GRAMS OF KAYEXALATE PO. INFORMED PATIENT THE ORDER WAS FOR 40 GRAMS SHE REFUSED THE 40 GRAMS AND SAID SHE ONLY WANTED 30 GRAMS WILL NOTIFY ATTENDING.
--- NOTE | 2020-03-30 14:43 | Progress Note ---
DATE: 03/30/2020 SUBJECTIVE: The patient feels better overall. Her oxygen is down to 2 L. PHYSICAL EXAMINATION: VITAL SIGNS: The blood pressure is 132/92 and the saturation is 99%. The pulse is 66. HEENT: Shows no facial swelling or erythema. LYMPHATIC: Shows no submandibular, cervical, or supraclavicular adenopathy. CARDIAC: Reveals regular rate and rhythm with normal S1 and S2. LUNGS: Auscultation of lungs reveals crackles at the bases. There is no wheezing. ABDOMEN: Soft and nontender. There is no rebound or guarding. EXTREMITIES: Shows no leg edema or calf tenderness. There is no cyanosis or clubbing. SKIN: Shows no rashes. LABORATORY DATA: White blood cell count is 15.1, hemoglobin is 13.1. The platelet count is 366. BUN to creatinine ratio is 58 to 1.03 and the potassium is 5.4. The carbon dioxide is 18 and the chloride is 111. Blood sugar is 219. IMPRESSION: 1. Vbwcd-yv-jbazbzm systolic congestive heart failure. 2. Acute kidney injury. 3. Cellulitis of the abdominal wall. 4. Diabetes. PLAN: 1. Continue to monitor renal function. 2. Continue to wean oxygen. 3. Continue current cardiac regimen. 4. Complete current antibiotics. Abilio Franco MD [facility]/MODL /[id number]
--- NOTE | 2020-03-30 15:00 | NUR ---
HANDOFF REPORT TO NURSE PHILLIP BARAJAS, MADE AWARE PATIENT ONLY TOOK 30 GRAMS OF KAYEXALATE VERBALIZED UNDERSTAFFING.,
--- NOTE | 2020-03-30 16:32 | NUR ---
pt arrived to room 215; pt awake, alert, no s/s of distress. in stable condition.
--- NOTE | 2020-03-30 16:47 | NUR ---
DR. Ruben VALLES ROUNDING MADE AWARE PATIENT DID NOT TAKE 40 GRAMS OF KAYEXALATE ONLY 30 GRAMS.
[2020-03-30] MEDS: ENOXAPARIN SOD INJ 40 MG/0.4 ML SYR SC SCH (17:46)
--- NOTE | 2020-03-30 18:25 | Progress Note ---
DATE: 03/30/2020 SUBJECTIVE: Ms. Mcclure is feeling better. She is still edematous. REVIEW OF SYSTEMS: Otherwise unremarkable. PHYSICAL EXAMINATION: GENERAL: She is currently alert, oriented. VITAL SIGNS: Stable, afebrile. HEENT: She is not icteric. NECK: Supple. CHEST: Clear. HEART: S1, S2. ABDOMEN: Soft. EXTREMITIES: Edema. IMPRESSION: Edema, cellulitis. I would recommend to discontinue antibiotic at the present time. Continue with diuresis. Recommend to discontinue dexamethasone. We will follow. MD DINAH Joiner/KELLI /[id number]
--- NOTE | 2020-03-30 19:00 | NUR ---
bedside shift report given to KARL Escalante. pt in stable condition.
--- NOTE | 2020-03-30 19:50 | NUR ---
RECEIVED THE PT IN REPORT. BED IS LOW AND LOCKED. SIDE RAILS X2. CALL LIGHT WITH IN EASY REACH. BED ALARM IS ON. ALL SAFETY MEASURES IN PLACE. PT DENIES NEEDS AT THIS TIME.
[2020-03-31] VITALS: BP 161/94
[2020-03-31 04:00] VITALS: BP 158/91
[2020-03-31 06:10] LABS: BASOPHILS % 0.2 % (0.0-1.0); HEMOGLOBIN 13.6 g/dL (12.0-16.0); LYMPHOCYTES # (AUTO) 1.6 (1.0-3.2); LYMPHOCYTES % 9.7 % (18.0-39.1); MEAN CORPUSCULAR HEMOGLOBIN 25.3 pg (28-32); MEAN CORPUSCULAR HGB CONC 30.9 g/dL (31-35); MEAN CORPUSCULAR VOLUME 81.8 fL (81-99); MONOCYTES # (AUTO) 1.2 (0.2-0.8); NEUTROPHILS # (AUTO) 13.2 (2.1-6.9); NEUTROPHILS % 80.5 % (38.7-80.0); RED BLOOD COUNT 5.38 x10e6/uL (3.6-5.1); RED CELL DISTRIBUTION WIDTH 17.8 % (11.7-14.4)
[2020-03-31 06:13] LABS: PLATELET COUNT 534 x10e3/uL (140-360)
[2020-03-31 06:19] LABS: ALANINE AMINOTRANSFERASE 52 IU/L (0-55); ALBUMIN 1.3 g/dL (3.5-5.0); ALBUMIN/GLOBULIN RATIO 0.3 (0.8-2.0); ALKALINE PHOSPHATASE 107 IU/L (40-150); ANION GAP 13.9 mmol/L (8-16); BLOOD UREA NITROGEN 46 mg/dL (7-26); BUN/CREATININE RATIO 57 (6-25); CALCIUM 8.4 mg/dL (8.4-10.2); CARBON DIOXIDE 24 mmol/L (22-29); CHLORIDE 112 mmol/L (98-107); CREATININE, SERUM 0.81 mg/dL (0.57-1.11); EST GLOMERULAR FILTRATION RATE > 60 ML/MIN (60-); POTASSIUM 3.9 mmol/L (3.5-5.1); SODIUM 146 mmol/L (136-145)
[2020-03-31 06:22] LABS: GLUCOSE 46 mg/dL (74-118)
--- NOTE | 2020-03-31 06:30 | NUR ---
Blood sugar noted 46.provided snacks and juice.pt is allert.keep monitor the patient.
--- NOTE | 2020-03-31 07:09 | NUR ---
Bed side shift report given to oncoming Rn.stable condition
--- NOTE | 2020-03-31 07:29 | NUR ---
DEXTROSE 50% IV ADMINISTERED.
[2020-03-31] MEDS: INSULIN REGULAR, HUMAN 100 UNIT/1 ML 3ML VIAL SQ SCH ×3 (07:30→16:30)
[2020-03-31] MEDS ORDERED: CARVEDILOL 3.125 MG TAB PO SCH (09:00)
[2020-03-31] MEDS: INSULIN GLARGINE 100 UNITS/ML VIAL SQ SCH (09:00)
[2020-03-31 09:55] VITALS: BP 129/78
[2020-03-31 09:56] VITALS: BP 129/78
--- NOTE | 2020-03-31 10:26 | NUR ---
patient partner visited the pt. pt says she miss her family , patient partner validated her feeling. Drill Grinder provided hope building and prayer support . pt expressed more peace and had brighter affect. chaplain Darlin
[2020-03-31] MEDS: ASPIRIN 81 MG ENTERIC COATED PO SCH (10:40)
[2020-03-31] MEDS: CLOPIDOGREL BISULFATE 75 MG TAB PO SCH (10:41)
[2020-03-31] MEDS: FUROSEMIDE 40 MG TAB PO SCH (10:41)
[2020-03-31 11:58] VITALS: BP 165/105
[2020-03-31] MEDS ORDERED: FUROSEMIDE 40 MG TAB PO SCH (12:00)
[2020-03-31] MEDS ORDERED: CEFAZOLIN SOD 1 GM/NS 50ML 50 ML IV SCH (12:00)
[2020-03-31] MEDS ORDERED: FUROSEMIDE INJ 10 MG/ML 4 ML VIAL IV SCH (13:00)
[2020-03-31] MEDS ORDERED: SODIUM CHLORIDE 0.9% 250ML 250 ML ONE (13:25)
--- NOTE | 2020-03-31 14:13 | NUR ---
infectious disease progress note She is seen and examined I have reviewed the medication and the list discussed with had earlier also with Dr. Christian Patient with no new complaints Ms. Mcclure is feeling better. She is still edematous. REVIEW OF SYSTEMS: Otherwise unremarkable. PHYSICAL EXAMINATION: GENERAL: She is currently alert, oriented. VITAL SIGNS: Stable, afebrile. HEENT: She is not icteric. NECK: Supple. CHEST: Clear. HEART: S1, S2. ABDOMEN: Soft. EXTREMITIES: Edema. IMPRESSION: Edema, cellulitis. I would recommend to discontinue antibiotic at the present time. Continue with diuresis. Recommend to discontinue dexamethasone. We will follow. add lasix
[2020-03-31 15:32] LABS: ANION GAP 16.5 mmol/L (8-16); CALCIUM 8.8 mg/dL (8.4-10.2); CREATININE, SERUM 1.03 mg/dL (0.57-1.11); POTASSIUM 4.5 mmol/L (3.5-5.1)
[2020-03-31] MEDS: ENOXAPARIN SOD INJ 40 MG/0.4 ML SYR SC SCH (16:38)
--- NOTE | 2020-03-31 16:55 | NUR ---
Paged and spoke from someone on answering service of Dr. Jeffry Bonds regarding discharge order. Awaiting for call back.
[2020-03-31] MEDS ORDERED: CARVEDILOL 12.5 MG TAB PO SCH (17:00)
[2020-03-31 17:20] VITALS: BP 160/110
--- NOTE | 2020-03-31 18:09 | NUR ---
Report given to KARL Palmer at [facility] for the transfer.
--- NOTE | 2020-03-31 18:20 | NUR ---
Per pablo Adams to transfer patient with the [facility].
--- NOTE | 2020-03-31 21:02 | NUR ---
TRANSFERRED PATIENT TO [facility] VIA EMS. PATIENT IS ALERT AND ORIENTED. NO COMPLAINS AT THIS TIME.
== END 2020-03-31 20:47 | DRG 871 ==
LOC: ER 17:56 → ERHOLD 21:55 → ICU 03-27 03:02 → IMCU 03-28 22:18 → MED/SURG2 03-30 16:58
PROC: 8E0ZXY6 Isolation (ICD-10-PCS; principal; 2020-03-27)
DX: A41.9 Sepsis, unspecified organism (principal); R65.21 Severe sepsis with septic shock; J12.9 Viral pneumonia, unspecified; J15.9 Unspecified bacterial pneumonia; J96.91 Respiratory failure, unspecified with hypoxia; I50.23 Acute on chronic systolic (congestive) heart failure; L03.311 Cellulitis of abdominal wall; N17.9 Acute kidney failure, unspecified; I13.0 Hypertensive heart and chronic kidney disease with heart failure and stage 1 through stage 4 chronic kidney disease, or unspecified chronic kidney disease; E78.5 Hyperlipidemia, unspecified; K76.9 Liver disease, unspecified; E11.22 Type 2 diabetes mellitus with diabetic chronic kidney disease; Z83.3 Family history of diabetes mellitus; Z82.49 Family history of ischemic heart disease and other diseases of the circulatory system; I50.9 Heart failure, unspecified; E66.9 Obesity, unspecified; N18.3 Chronic kidney disease, stage 3 (moderate); Z79.4 Long term (current) use of insulin; Z68.30 Body mass index [BMI] 30.0-30.9, adult
CPT/HCPCS: 36415; 51700; 71045; 80048; 80053; 80061; 81001; 82550; 82553; 82948; 83605; 83735; 83880; 84443; 84484; 85025; 85610; 85730; 87040; 87086; 93005; 93306; 96372; 96374; 99284; J0456; J0690; J0696; J1100; J1650; J1815; J1817; J1940; J2405; J3370; J7030; J7050; J7799; U0002

== ENCOUNTER 2020-05-11 15:29 | Inpatient (IN) | payer OTHER ==
[~2020-05-11] VITALS: Ht 157.5 cm; Wt 76.2 kg
[~2020-05-11 15:29] MED LIST changes: -LEVEMIR; +LEVEMIR SQ; -NOVOLOG100 UNITS1; +NOVOLOG100 UNITS1 SQ
--- OUTSIDE RECORDS SUMMARY | 2020-05-11 16:29 | XMS REPORT | Continuity of Care Document ---
Author Author [facility] t Organization [facility] Address [address] [place] [address] Phone Unavailable Care Team Providers Care Cistern Room Operator Name Role Phone NONSTAFF PCP Unavailable VALLES, SOUHEIL Attphys Unavailable DAHU, S JIRIES Attphys Unavailable VALLES, SOUHEIL Admphys Unavailable DAHU, S JIRIES Admphys Unavailable Payers Payer Name Policy Type Policy Number Effective Date Expiration Date [facility] [id number] 2019 00:00: 00 [facility] Problems Condition Name Condition Details Condition Category Status Onset Date Resolution Date Last Treatment Date Treating Clinician Comments Source Dehydration Dehydration Problem Active 2016-01-22 00:00:00 [facility] Diarrhea Diarrhea Problem Active 2016-01-22 00:00:00 [facility] Hyperglycemia Hyperglycemia Problem Active 2016-01-22 00:00:00 [facility] Urinary tract infection UTI (urinary tract infection) Problem Active 2016-01-22 00:00:00 [facility] Vomiting Vomiting Problem Active 2016-01-22 00:00:00 [facility] Cellulitis of abdominal wall Problem Active [facility] Suspected severe acute respiratory syndr ome coronavirus 2 (SARS-CoV-2) infection Problem Active [facility] Fever Problem Active [facility] Hypoxemia requiring supplemental oxygen Problem Active [facility] Septic shock Problem Active [facility] Viral pneumonia Problem Active [facility] Elevated troponin I level Problem Active [facility] Allergies, Adverse Reactions, Alerts This patient has no known allergies or adverse reactions. Social History Social Habit Start Date Stop Date Quantity Comments Source Sex Assigned At 1965 00:00:00 1965 00:00:00 Female [facility] Medications Ordered Medication Name Filled Medication Name Start Date Stop Da te Current Medication? Ordering Clinician Indication Dosage Frequency Signature (SIG) Comments Components Source Atorvastatin Calcium Atorvastatin Calcium Yes 80 Daily [facility] Ezetimibe (Zetia) 10 Mg TABLET Ezetimibe (Zetia) 10 Mg TABLET Yes 10 Daily [facility] Gabapentin Gabapentin Yes 400 Twice A Day [facility] Glimepiride Glimepiride Yes 4 Daily [facility] Insulin Aspart (Novolog) 100 Units/1 Ml INJ Insulin As part (Novolog) 100 Units/1 Ml INJ Yes [facility] Levemir Levemir Yes [facility] Lisinopril (Prinavil / Zestril) 20 Mg TABLET Lisinopri l (Prinavil / Zestril) 20 Mg TABLET Yes [address] [facility] Metformin Hcl Metformin Hcl Yes 1000 Twice A Day [facility] Bsazq-2-Keae Dsazr-8-Rdqy Yes 1000 Daily [facility] Acetaminophen With Codeine (Tylenol With Codeine #3 Ta blet) 1 Each TABLET Acetaminophen With Codeine (Tylenol With Codeine #3 Tablet) 1 Each TABLET 2020-03-26 00:00:00 No 1 Every 6 Ho urs as needed for Moderate Pain (4-6) [facility] Cephalexin Monohydrate (Keflex) 500 Mg CAPSULE Cephale frankie Monohydrate (Keflex) 500 Mg CAPSULE 2020-03-26 00:00:00 No 500 Every 8 H ours [facility] Clindamycin Hcl Clindamycin Hcl 2019-03-22 00:00:00 No 300 Three Times A Day [facility] Ezetimibe (Zetia) 10 Mg TABLET Ezetimibe (Zetia) 10 Mg TABLET 2019-03-22 00:00:00 No 10 Daily [facility] Vital Signs Vital Name Observation Time Observation Value Comments Source Body Temperature 2020-03-31 17:20:00 97.9 [degF] [facility] Weight 2020-03-30 16:30:00 168.04 [lb_av] [facility] BMI (Body Mass Index) 2020-03-30 16:30:00 30.7 kg/m2 [facility] Procedures This patient has no known procedures. Encounters Start Date/Time End Date/Time Encounter Type Admission Type Attendi [facility] Care Department Encounter ID Source 2020-03-26 21:55:00 2020-03-31 20:47:00 Discharged Inpatient 1 HAVEN VALLES [facility] [id number] [facility] 2019-03-19 19:19:00 2019-03-22 19:53:00 Discharged Inpatient 1 ENDER EDGAR [facility] [id number] [facility] 2019-03-08 08:28:00 2019-03-08 08:28:00 Registered Clinic [facility] [id number] [facility] 2019-03-03 14:07:00 2019-03-03 19:00:00 Departed Emergency Room [facility] [id number] [facility] Results Test Description Test Time Test Comments Results Result Comments Source Capillary blood glucose measurement by glucometer (mas s/volume) 2020-03-31 20:37:00 Test Item Bedside Glucose (test code = 80110-5) 235 70-120 Meter ID: [id number]. [facility]um or plasma sodium measurement (moles/volume)2020-03-31 15:00:00* Test Item Value Reference Range Interpretation Comments Sodium Level (test code = 2951-2) 144 136-145 [facility] or plasma potassium measurement (moles/volume)2020-03-31 15:00:00* Test Item Value Reference Range Interpretation Comments Potassium Level (test code = 2823-3) 4.5 3.5-5.1 [facility] or plasma chloride measurement (moles/volume)2020-03-31 15:00:00* Test Item Value Reference Range Interpretation Comments Chloride Level (test code = 2075-0) 105 98-107 [facility] or plasma carbon dioxide, total measurement (moles/volume)2020-03-31 15:00:00* Test Item Value Reference Range Interpretation Comments Carbon Dioxide Level (test code = 2028-9) 27 22-29 [facility]um or plasma anion [id number] 15:00:00* Test Item Value Reference Range Interpretation Comments Anion Gap (test code = 26373-6) 16.5 8-16 [facility] or plasma urea nitrogen measurement (mass/volume)2020-03-31 15:00:00* Test Item Value Reference Range Interpretation Comments Blood Urea Nitrogen (test code = 3094-0) 42 7-26 [facility] or plasma creatinine measurement (mass/volume)2020-03-31 15:00:00* Test Item Value Reference Range Interpretation Comments Creatinine (test code = 2160-0) 1.03 0.57-1.11 [facility] or plasma urea nitrogen/creatinine mass [id number] 15:00:00* Test Item Value Reference Range Interpretation Comments BUN/Creatinine Ratio (test code = 3097-3) 41 6-25 [facility]neyEstimated glomerular filtration rate (GFR) rztjhliyjmtak7577-36-19 15:00:00* Test Item Value Reference Range Interpretation Comments Estimat Glomerular Filtration Rate (test code = 631324328) 56 >60 Ranges were taken from the National Kidney Disease Education Program and the [facility] [employer] literature.Reference ranges:60 or greater: Uvgyiy96-29 ( for 3 consecutive months): Chronic kidney disease 15 or less: Kidney failureBaylor Scott & [facility] Center – McKinneyGlucose njljkohqmvf4410-62-93 15:00:00* Test Item Value Reference Range Interpretation Comments Glucose Level (test code = DNM2100) 210 74-118 [facility]um or plasma calcium measurement (mass/volume)2020-03-31 15:00:00* Test Item Value Reference Range Interpretation Comments Calcium Level (test code = 34956-7) 8.8 8.4-10.2 [facility]um or plasma magnesium measurement (mass/volume)2020-03-31 15:00:00* Test Item Value Reference Range Interpretation Comments Magnesium Level (test code = 18219-8) 1.8 1.3-2.1 [facility]neyBlood leukocytes automated count (number/volume)2020-03-31 05:35:00* Test Item Value Reference Range Interpretation Comments White Blood Count (test code = 6690-2) 16.43 4.8-10.8 [facility]neyBlood erythrocytes automated count (number/volume)2020-03-31 05:35:00* Test Item Value Reference Range Interpretation Comments Red Blood Count (test code = 789-8) 5.38 3.6-5.1 [facility]neyBlood hemoglobin measurement (moles/volume)2020-03-31 05:35:00* Test Item Value Reference Range Interpretation Comments Hemoglobin (test code = 92543-0) 13.6 12.0-16.0 [facility] McKinneyAutomated blood hematocrit (volume fraction)2020-03-31 05:35:00* Test Item Value Reference Range Interpretation Comments Hematocrit (test code = 4544-3) 44.0 34.2-44.1 [facility] McKinneyAutomated erythrocyte mean corpuscular gfmuht9741-77-97 05:35:00* Test Item Value Reference Range Interpretation Comments Mean Corpuscular Volume (test code = 787-2) 81.8 81-99 [facility] McKinneyAutomated erythrocyte mean corpuscular hemoglobin (mass per erythrocyte)2020-03-31 05:35:00* Test Item Value Reference Range Interpretation Comments Mean Corpuscular Hemoglobin (test code = 785-6) 25.3 28-32 [facility] McKinneyAutomated erythrocyte mean corpuscular hemoglobin concentration measurement (mass/volume)2020-03-31 05:35:00* Test Item Value Reference Range Interpretation Comments Mean Corpuscular Hemoglobin Concent (test code = 786-4) 30.9 31-35 [facility] McKinneyRDW JxfBb-Pvw9216-91-21 05:35:00* Test Item Value Reference Range Interpretation Comments Red Cell Distribution Width (test code = 18328-2) 17.8 11.7 -14.4 [facility] McKinneyAutomated blood platelet count (count/volume)2020-03-31 05:35:00* Test Item Value Reference Range Interpretation Comments Platelet Count (test code = 777-3) 534 140-360 This test has been rerun and double checked for accuracy.[facility] McKinneyAutomated blood segmented neutrophil count as percentage of total vlljzupbdq6293-87-96 05:35:00* Test Item Value Reference Range Interpretation Comments Neutrophils (%) (Auto) (test code = 83335-3) 80.5 38.7-80.0 [facility] McKinneyAutomated blood lymphocyte count as percentage ot total izujpjphwk7810-14-06 05:35:00* Test Item Value Reference Range Interpretation Comments Lymphocytes (%) (Auto) (test code = 736-9) 9.7 18.0-39.1 [facility] McKinneyAutomated blood monocyte count as percentage of total cfwlepsane7844-94-27 05:35:00* Test Item Value Reference Range Interpretation Comments Monocytes (%) (Auto) (test code = 5905-5) 7.0 4.4-11.3 [facility] McKinneyAutomated blood eosinophil count as percentage of total zimiaghjat6188-45-85 05:35:00* Test Item Value Reference Range Interpretation Comments Eosinophils (%) (Auto) (test code = 713-8) 0.0 0.0-6.0 [facility] McKinneyAutomated blood basophil count as percentage of total itrpfkhdsx1541-31-05 05:35:00* Test Item Value Reference Range Interpretation Comments Basophils (%) (Auto) (test code = 706-2) 0.2 0.0-1.0 [facility] McKinneyFluoroscopic procedure less than one hour jkovijps7861-14-82 05:35:00* Test Item Value Reference Range Interpretation Comments IM GRANULOCYTES % (test code = IM GRANULOCYTES %) 2.6 0.0- 1.0 [facility] McKinneyAutomated blood neutrophil count 2020-03-31 05:35:00* Test Item Value Reference Range Interpretation Comments Neutrophils # (Auto) (test code = 751-8) 13.2 2.1-6.9 [facility]neyBlood lymphocytes count (number/volume) 2020-03-31 05:35:00* Test Item Value Reference Range Interpretation Comments Lymphocytes # (Auto) (test code = 66242-4) 1.6 1.0-3.2 [facility]neyBlood monocytes automated count (number/volume)2020-03-31 05:35:00* Test Item Value Reference Range Interpretation Comments Monocytes # (Auto) (test code = 742-7) 1.2 0.2-0.8 [facility] McKinneyAutomated blood eosinophil count 2020-03-31 05:35:00* Test Item Value Reference Range Interpretation Comments Eosinophils # (Auto) (test code = 711-2) 0.0 0.0-0.4 [facility] McKinneyAutomated blood basophil count (count/volume)2020-03-31 05:35:00* Test Item Value Reference Range Interpretation Comments Basophils # (Auto) (test code = 704-7) 0.0 0.0-0.1 [facility] McKinneyFluoroscopic procedure less than one hour cqqbdjmy2007-28-69 05:35:00* Test Item Value Reference Range Interpretation Comments Absolute Immature Granulocyte (auto (allie t code = Absolute Immature Granulocyte (auto) 0.42 0-0.1 [facility]kinerum or plasma total bilirubin measurement (mass/volume)2020-03-31 05:35:00* Test Item Value Reference Range Interpretation Comments Total Bilirubin (test code = 1975-2) 0.3 0.2-1.2 [facility] McKinneyFluoroscopic procedure less than one hour ahamytpk9932-24-61 05:35:00* Test Item Value Reference Range Interpretation Comments Aspartate Amino Transf (AST/SGOT) (test code = Aspartate Amino Transf (AST/SGOT)) 32 5-34 [facility]ufkinerum or plasma alanine aminotransferase measurement (enzymatic activity/volume)2020-03-31 05:35:00* Test Item Value Reference Range Interpretation Comments Alanine Aminotransferase (ALT/SGPT) (test code = 1742-6) 52 0-55 [facility]ufkinerum or plasma protein measurement (mass/volume)2020-03-31 05:35:00* Test Item Value Reference Range Interpretation Comments Total Protein (test code = 2885-2) 6.4 6.5-8.1 [facility]kinerum or plasma albumin measurement (mass/volume)2020-03-31 05:35:00* Test Item Value Reference Range Interpretation Comments Albumin (test code = 1751-7) 1.3 3.5-5.0 [facility] McKinneyPlasma globulin measurement (mass/volume) 2020-03-31 05:35:00* Test Item Value Reference Range Interpretation Comments Globulin (test code = 82425-5) 5.1 2.3-3.5 [facility]kinerum or plasma albumin/globulin mass fzesj5452-25-81 05:35:00* Test Item Value Reference Range Interpretation Comments Albumin/Globulin Ratio (test code = 1759-0) 0.3 0.8-2.0 [facility]kinerum or plasma alkaline phosphatase measurement (enzymatic activity/volume)2020-03-31 05:35:00* Test Item Value Reference Range Interpretation Comments Alkaline Phosphatase (test code = 6768-6) 107 40-150 [facility] McKinneyBNP Dzq-jDji8940-56-21 05:35:00* Test Item Value Reference Range Interpretation Comments B-Type Natriuretic Peptide (test code = 90437-4) 581.8 0-100 [facility] McKinneyFluoroscopic procedure less than one hour wsxbjvhi3177-04-36 08:39:00* Test Item Value Reference Range Interpretation Comments Differential Total Cells Counted (test code = Anna tial Total Cells Counted) 100 [facility] McKinneyManual blood neutrophils/100 leukocytes 2020-03-30 08:39:00* Test Item Value Reference Range Interpretation Comments Neutrophils % (Manual) (test code = 48634-7) 86 40-74 [facility] McKinneyManual blood lymphocytes/100 leukocytes 2020-03-30 08:39:00* Test Item Value Reference Range Interpretation Comments Lymphocytes % (Manual) (test code = 737-7) 6 19-48 [facility] blood monocytes/100 leukocytes 2020-03-30 08:39:00* Test Item Value Reference Range Interpretation Comments Monocytes % (Manual) (test code = 744-3) 8 3.4-9.0 [facility] McKinneyBlood nucleated erythrocytes count (number/volume)2020-03-30 08:39:00* Test Item Value Reference Range Interpretation Comments Nucleated Red Blood Cells (test code = 02653-8) 5 [facility] platelets count by estimate (number/volume)2020-03-30 08:39:00* Test Item Value Reference Range Interpretation Comments Platelet Estimate (test code = 63618-1) SLIGHTLY INCREASED [facility] McKinneyPlatelet stohzynkwf9919-07-80 08:39:00* Test Item Value Reference Range Interpretation Comments Platelet Morphology Comment (test code = 40307-1) NORMAL [facility] McKinneyBlood anisocytosis detection by light apmeucqgri3578-55-90 08:39:00* Test Item Value Reference Range Interpretation Comments Anisocytosis (test code = 702-1) SLIGHT [facility] ovalocytes detection by light mejepkkgzj7067-76-97 08:39:00* Test Item Value Reference Range Interpretation Comments Ovalocytes (test code = 774-0) FEW [facility] McKinneyElliptocyte imsrjrwdx4349-78-29 08:39:00 * Test Item Value Reference Range Interpretation Comments Elliptocytes (test code = 75850-8) SLIGHT [facility] McKinneyRBC titqtmanon0823-91-40 08:39:00* Test Item Value Reference Range Interpretation Comments Red Cell Morphology Comment (test code = 6742-1) ABNORMAL [facility]ufkinerum or plasma triglyceride measurement (mass/volume)2020-03-29 04:28:00* Test Item Value Reference Range Interpretation Comments Triglycerides Level (test code = 2571-8) 133 0-149 [facility] Lufkinerum or plasma cholesterol measurement (mass/volume)2020-03-29 04:28:00* Test Item Value Reference Range Interpretation Comments Cholesterol Level (test code = 2093-3) 131 0-199 Less than 200 mg/dL Low Grkc299 - 239 mg/dL Borderline Qqid103 m g/dl and greater High Risk [facility]ufkinerum or plasma cholesterol in LDL measurement (mass/volume) 2020-03-29 04:28:00* Test Item Value Reference Range Interpretation Comments LDL Cholesterol (test code = 2089-1) 69 60-130 [facility]kinerum or plasma cholesterol in HDL measurement (mass/volume)2020-03-29 04:28:00* Test Item Value Reference Range Interpretation Comments HDL Cholesterol (test code = 2085-9) 35 40-60 [facility]ufkinerum or plasma total cholesterol/cholesterol in HDL mass pssvt2180-43-01 04:28:00* Test Item Value Reference Range Interpretation Comments Cholesterol/HDL Ratio (test code = 9830-1) 3.7 3.0-3.6 [facility]kinerum or plasma thyrotropin measurement by detection limit <= 0.005 miu/l (units/volume)2020-03-29 04:28:00* Test Item Value Reference Range Interpretation Comments Thyroid Stimulating Hormone (TSH) (test code = 34153-4) 0.529 0.350-4.940 [facility]ney[facility]ST [facility]ING[facility] ([facility]ABLE)2020-03-28 08:19:00 [place] [address] Patient Name: BRIDGETT BAXTER MR #: [id number] : 1965 Age/Sex: 54/F Req #: [id number] Adm Physician: HAVEN VALLES MD Ordered by: CESAR MARTINEZ MD Report #: [id number] Location: ICU Room/Bed: [place] [address] Procedure: [id number] DX/OSVALDO ST SINGLE (PORTABLE) Exam Date: 03/28/20 Exam Time: 0555 REPORT STATUS: Signed [place]: Single AP view of the chest. COMPARISON: 03/26/2020 INDICATION: Congestive heart failure DISCUSSION: Lungs remain reasonably we ll inflated. Perihilar interstitial opacities are stable compared to prior. Mo re focal airspace disease in the left lower lobe with loss of the hemidiaphrag matic contour also unchanged. Small bilateral pleural effusions are suspected. Stable moderate enlargement of the cardiac silhouette. No acute oss eous abnormalities. IMPRESSION: Overall stable enlargement of the car diac silhouette with interstitial pulmonary edema and small bilateral pleural effusions. Retrocardiac airspace disease likely reflects atelectasis. Sig rosanna by: Dr. Riky Friend M.D. on 03/28/2020 8:22 AM Dictated By: RIKY FRIEND MD 1 Transcri bed By: CYNTHIA on 03/28/20821 COPY TO: CESAR MARTINEZ MD Manual blood band neutrophils form/100 myahairrds4135-77-52 04:23:00* Test Item Value Reference Range Interpretation Comments Band Neutrophils % (test code = 764-1) 1 [facility] McKinneyBlood poikilocytosis detection by light illflfglfw4448-21-70 04:23:00* Test Item Value Reference Range Interpretation Comments Poikilocytosis (test code = 779-9) SLIGHT [facility]kinerum or plasma creatine kinase measurement (enzymatic activity/volume)2020-03-27 12:15:00* Test Item Value Reference Range Interpretation Comments Creatine Kinase (test code = 2157-6) 9677 29-802 [facility]ufkinerum or plasma creatine kinase MB measurement (mass/volume)2020-03-27 12:15:00* Test Item Value Reference Range Interpretation Comments Creatine Kinase MB (test code = 42142-8) 18.10 0-5.0 [facility] McKinneyTroponin I measurement by highly sensitive enzyme tjaeawlskpm8908-81-41 12:15:00* Test Item Value Reference Range Interpretation Comments Troponin I (test code = 32578-2) 0.446 0-0.300 [facility]neyCHES SINGLE (PORTABLE)2020-03-26 19:07:00 [facility] [address] [address] Patient Name: BRIDGETT BAXTER MR #: [id number] : 1965 Age/Sex: 54/F Req #: [id number] Adm Physician: Ordered by: LORIE BOYCE MD Report #: [id number] Location: ER Room/Bed: Procedure: [id number] DX/C HEST SINGLE (PORTABLE) Exam Date: 03/26/20 Exam Time : 1819 REPORT STATUS: Signed EXA MINATION: CHEST SINGLE (PORTABLE) INDICATION: Y COUGH, FEV ER, SOB, HYPOXIC [id number] COMPARISON: None FINDINGS: AP view TUBES and LINES: None. LUNGS: Lungs are well inflated. Diffuse bilateral lung haziness. PLEURA: No significant pleural effusion o r pneumothorax. HEART AND MEDIASTINUM: The cardiomediastinal silhouette is enlarged. BONES AND SOFT TISSUES: No acute osseous lesion. Soft tiss ues are unremarkable. UPPER ABDOMEN: No free air under the diaphragm. IMPRESSION: Enlarged cardiac mediastinal silhouette with diffuse hazine ss of the bilateral lungs, representing edema and/or pneumonia in the appropri ate clinical context. Signed by: Dr. Ceasar Campos MD on 03/26/2020 7:08 PM Dictated By: CEASAR CAMPOS MD 07 Transcribed By: CYNTHIA on 03/26/201907 COPY TO: LORIE BOYCE MD Prothrombin time (PT) in platelet poor plasma by coagulation [id number] 18:00:00* Test Item Value Reference Range Interpretation Comments Prothrombin Time (test code = 5902-2) 16.0 11.9-14.5 [facility] McKinneyINR in Platelet poor plasma by Coagulation [id number] 18:00:00* Test Item Value Reference Range Interpretation Comments Prothromb Time International Ratio (test code = 6301-6) 1.21 Oral Anticoagulant Therapy INR Values:1. Low Intensity Therapy 1.5 - 2.02 . Moderate Intensity Therapy 2.0 - 3.03. High Intensity Therapy(1) 2.5 - 3. 54. High Intensity Therapy(2) 3.0 - 4.05. Panic Value INR > 5.0 [facility] McKinneyActivated partial thromboplastin time (aPTT) in platelet poor plasma by coagulation pajhf3174-54-99 18:00:00* Test Item Value Reference Range Interpretation Comments Activated Partial Thromboplast Time (test code = 45548-8) 40.7 23.8-35.5 [facility] McKinneyUrine color hitirxzbiupwb8889-08-73 18:00:00* Test Item Value Reference Range Interpretation Comments Urine Color (test code = 5778-6) YELLOW YELLOW [facility] McKinneyUrine jrzvkkm1740-59-36 18:00:00* Test Item Value Reference Range Interpretation Comments Urine Clarity (test code = 45760-0) HAZY CLEAR [facility]ufkinpecific gravity of Urine by Test strip 2020-03-26 18:00:00* Test Item Value Reference Range Interpretation Comments Urine Specific [place] (test code = 5811-5) 1.025 1.010-1.02 5 [facility] McKinneyUrine pH measurement by automated test hopul7301-70-94 18:00:00* Test Item Value Reference Range Interpretation Comments Urine pH (test code = 36215-0) 5.5 5-7 [facility] McKinneyUrine leukocyte esterase detection by lgfmqhxl6706-15-07 18:00:00* Test Item Value Reference Range Interpretation Comments Urine Leukocyte Esterase (test code = 5799-2) NEGATIVE NEGATIVE [facility] McKinneyUrine nitrite lqshqjqdv1666-20-39 18:00:00* Test Item Value Reference Range Interpretation Comments Urine Nitrite (test code = 13486-2) NEGATIVE NEGATIVE [facility]neyUrine protein measurement by test strip (mass/volume)2020-03-26 18:00:00* Test Item Value Reference Range Interpretation Comments Urine Protein (test code = 5804-0) >=300 NEGATIVE [facility] McKinneyUrine glucose kjqczdviy7367-72-68 18:00:00* Test Item Value Reference Range Interpretation Comments Urine Glucose (UA) (test code = 2349-9) 1+ NEGATIVE [facility] McKinneyUrine ketones detection by automated test wfpsy2166-56-08 18:00:00* Test Item Value Reference Range Interpretation Comments Urine Ketones (test code = 34952-3) NEGATIVE NEGATIVE [facility] McKinneyUrine urobilinogen measurement by test strip (mass/volume)2020-03-26 18:00:00* Test Item Value Reference Range Interpretation Comments Urine Urobilinogen (test code = 10748-6) 1 0.2-1 [facility]neyUrine total bilirubin measurement (mass/volume)2020-03-26 18:00:00* Test Item Value Reference Range Interpretation Comments Urine Bilirubin (test code = 1978-6) SMALL NEGATIVE [facility] McKinneyUrine erythrocytes pmcyyalsn1014-92-09 18:00:00* Test Item Value Reference Range Interpretation Comments Urine Blood (test code = 71018-5) LARGE NEGATIVE [facility] McKinneyAutomated urine sediment leukocyte count by microscopy (number/high power field)2020-03-26 18:00:00* Test Item Value Reference Range Interpretation Comments Urine WBC (test code = 5821-4) 6-10 0-5 [facility] McKinneyErythrocytes detection in urine sediment by light wrptzutqpc4810-27-58 18:00:00* Test Item Value Reference Range Interpretation Comments Urine RBC (test code = 17110-0) 11-20 0-5 [facility] McKinneyBacteria detection in urine sediment by light pdhfpwmlea5194-65-04 18:00:00* Test Item Value Reference Range Interpretation Comments Urine Bacteria (test code = 42067-5) MODERATE NONE [facility] McKinneyEpithelial cells detection in urine sediment by light yuictnmoyq5926-78-46 18:00:00* Test Item Value Reference Range Interpretation Comments Urine Epithelial Cells (test code = 55585-6) MODERATE NONE [facility] McKinneyAmorphous sediment detection in urine sediment by light lishmddhhb7964-27-01 18:00:00* Test Item Value Reference Range Interpretation Comments Urine Amorphous Sediment (test code = 8246-1) MODERATE FEW [facility] McKinneyCoarse granular casts detection in urine sediment by light pnipamurpa6327-66-14 18:00:00* Test Item Value Reference Range Interpretation Comments Urine Coarse Granular Casts (test code = 37152-2) 1-5 >0 [facility] McKinneyMucus detection in urine sediment by light qpwzvjtefh9319-28-55 18:00:00* Test Item Value Reference Range Interpretation Comments Urine Mucus (test code = 8247-9) FEW RARE [facility] McKinneyFluoroscopic procedure less than one hour aqunttog3784-29-53 18:00:00* Test Item Value Reference Range Interpretation Comments Lactic Acid Level (test code = Lactic Acid Level) 1.7 0.5- 2.0 [facility] McKinneyFluoroscopic procedure less than one hour xocfnlzl0187-57-58 18:00:00* Test Item Value Reference Range Interpretation Comments Coronavirus (PCR) (test code = Coronavirus (PCR)) NOT DETECTED NOTD ETECTED SARS-COV2/RT-PCRNegative results do not preclude SARS-CoV-2 infection and should not be used as the sole basis for patient management decisions. Negative result s must be combined with clinical observations, patient history, and epidemiologi des information. A false negative result may occur if a specimen is improperly c ollected, transported or handled.The limit of detection for this assay is 250 co pies/mLThe SARS-CoV-2 test is a rapid, real-time RT-PCR test intended for the qu alitative detection of nucleic acid from SARS-CoV-2 in nasopharyngeal swab speci men collected from individuals suspected of COVID-19 by their healthcare provide r. This test has not been Food and Drug Administration (FDA) cleared or approved and has been authorized by FDA under an Emergency Use Authorization (EUA). This EUA will be effective until the declaration that circumstances exist justifying the authorization of the emergency use of in vitro diagnostic test for detectio n and or diagnosis of COVID-19 is terminated under section 564(b) of the Act, or the the EUA is revoked under 564(g) of the ACT.[facility] [place], [place] [address]BKN [facility] AllenBlood pvnovdr7576-91-59 17:57:00* Test Item Value Reference Range Interpretation Comments Blood Culture (test code = 03122070) NO GROWTH AFTER 5 DAYS, FINAL REPORT [facility]CR M[facility]M BILATERAL [place]IRA CAD DIGITAL 2019-06-02 09:03:33 - SCR MAMM BILATERAL TAHIRA CAD DIGITALBILATERAL DIGITAL SCREENING MAMMOGRAM 3D/2D WITH CAD: 06/02/2019CLINICAL: Asymptomatic. Digital breast tomosynthesis was performed in addition to routine CC and MLO views. Current mammographic images were evaluated by either a [employer] M-Vu or a [employer] ImageChecker CAD (computer aided detection system). Comparison is made to exams dated 06/01/2018 mammogram and 03/06/2017 mammogram - [facility]- . There are scattered fibroglandular tissues in both breasts. There are benign calcifications in both breasts. No suspicious mass, architectural distortion, malignant type calcification, or lymph node abnormality detected. Breast architecture is stable compared to prior exams.IMPRESSION: BENIGNThere is no mammographic evidence of malignancy. Resume annual screening mammography in one year. Malena hallman/jose:06/02/2019 09:03:33 Insurance Job Titles: [place], [facility]-FWletter sent: BIRADS 1-2 Normal Mammogram BI-RADS: 2 BenignBedside Xefopuk0908-06-34 16:17:00* Test Item Value Reference Range Interpretation Comments Bedside Glucose (test code = 57886-1) 172 70-120 H Meter ID: [id number] [facility] AllenVancomycin Level Ftuxsw2744-79-94 08:37:00* Test Item Value Reference Range Interpretation Comments Vancomycin Level Trough (test code = 4092-3) 10.7 5.0-10.0 HH Results repeated and called to REGINALDO JOSE at 0834 on 03/22/19 by Reno Erickson . Read back and verified.[facility] AllenCT RIGHT LOWER EXTREMITY T0741-28-50 10:44:00 [facility] [address] [address] Patient Name: DERIK BAXTER MR #: [id number] : 1965 Age/Sex: 53/F Req #: [id number] Adm Physician: ENDER EDGAR MD Ordered by: ENDER EDGAR MD Report #: [id number] Location: MED/SURG Room/Bed: [facility] Procedure: CT/CT RIGHT LOWER EXTREMITY W Exam Date: Exam Ti me: REPORT STATUS: Signed CT Lo wer extremity right with contrast, with reconstructions. CPT code: 20057, 7 6376 Indications: Cellulitis, evaluate for abscess [...] you for this referral. Signed by: Dr. Barry Barbour MD on 03/21/2019 10:48 AM Dictated By: BARRY GOMEZ MD 104 Transcri bed By: CYNTHIA on 03/21/19 1048 COPY TO: ENDER EDGAR MD Sodium Cylrv6131-00-97 06:51:00* Test Item Value Reference Range Interpretation Comments Sodium Level (test code = 2951-2) 143 136-145 [facility]neyPotassium Mxlfv2586-37-66 06:51:00* Test Item Value Reference Range Interpretation Comments Potassium Level (test code = 2823-3) 4.3 3.5-5.1 [facility] McKinneyChloride Tuixx2667-90-56 06:51:00* Test Item Value Reference Range Interpretation Comments Chloride Level (test code = 2075-0) 108 98-107 H [facility] McKinneyCarbon Dioxide Sggfc0138-85-82 06:51:00* Test Item Value Reference Range Interpretation Comments Carbon Dioxide Level (test code = 2028-9) 26 22-29 [facility] McKinneyAnion Una1025-11-21 06:51:00* Test Item Value Reference Range Interpretation Comments Anion Gap (test code = 31893-4) 13.3 8-16 [facility] McKinneyBlood Urea Skvhhwgd5408-55-57 06:51:00* Test Item Value Reference Range Interpretation Comments Blood Urea Nitrogen (test code = 3094-0) 22 7-26 [facility] McKinneyCreatinine2019-08-11 06:51:00* Test Item Value Reference Range Interpretation Comments Creatinine (test code = 2160-0) 0.82 0.57-1.11 [facility] McKinneyBUN/Creatinine Yrakz4384-30-98 06:51:00* Test Item Value Reference Range Interpretation Comments BUN/Creatinine Ratio (test code = 3097-3) 27 6-25 H [facility] McKinneyEstimat Glomerular Filtration Rate 2019-03-21 06:51:00* Test Item Value Reference Range Interpretation Comments Estimat Glomerular Filtration Rate (test code = 514919918) > 60 >60 Ranges were taken from the National Kidney Disease Education Program and the [facility] Kidney Foundation literature.Reference ranges:60 or greater: Zlyckh16-87 ( for 3 consecutive months): Chronic kidney disease 15 or less: Kidney failureBaylor Scott & White Medical Center – McKinneyGlucose Qjbct9036-77-97 06:51:00* Test Item Value Reference Range Interpretation Comments Glucose Level (test code = WFY9871) 165 74-118 H [facility] McKinneyCalcium Yevnu8543-32-55 06:51:00* Test Item Value Reference Range Interpretation Comments Calcium Level (test code = 03686-8) 8.7 8.4-10.2 [facility] McKinneyWhite Blood Umqts3855-62-12 06:31:00* Test Item Value Reference Range Interpretation Comments White Blood Count (test code = 6690-2) 6.47 4.8-10.8 [facility] McKinneyRed Blood Hnqkv5371-83-49 06:31:00* Test Item Value Reference Range Interpretation Comments Red Blood Count (test code = 789-8) 4.18 3.6-5.1 [facility] McKinneyHemoglobin2019-08-11 06:31:00* Test Item Value Reference Range Interpretation Comments Hemoglobin (test code = 25161-2) 11.5 12.0-16.0 L [facility] McKinneyHematocrit2019-08-11 06:31:00* Test Item Value Reference Range Interpretation Comments Hematocrit (test code = 4544-3) 36.2 34.2-44.1 [facility] McKinneyMean Corpuscular Jwvbky1701-16-45 06:31:00* Test Item Value Reference Range Interpretation Comments Mean Corpuscular Volume (test code = 787-2) 86.6 81-99 [facility] McKinneyMean Corpuscular Mazpwfnzpt2398-27-94 06:31:00* Test Item Value Reference Range Interpretation Comments Mean Corpuscular Hemoglobin (test code = 785-6) 27.5 28-32 L [facility] McKinneyMean Corpuscular Hemoglobin Concent 2019-03-21 06:31:00* Test Item Value Reference Range Interpretation Comments Mean Corpuscular Hemoglobin Concent (test code = 786-4) 31.8 31-35 [facility] McKinneyRed Cell Distribution Nvldq2269-78-42 06:31:00* Test Item Value Reference Range Interpretation Comments Red Cell Distribution Width (test code = 34094-5) 13.4 11.7 -14.4 [facility] McKinneyPlatelet Kfarm5136-84-98 06:31:00* Test Item Value Reference Range Interpretation Comments Platelet Count (test code = 777-3) 365 140-360 H [facility] McKinneyNeutrophils (%) (Auto)2019-03-21 06:31:00 * Test Item Value Reference Range Interpretation Comments Neutrophils (%) (Auto) (test code = 07959-6) 54.5 38.7-80.0 [facility] McKinneyLymphocytes (%) (Auto)2019-03-21 06:31:00 * Test Item Value Reference Range Interpretation Comments Lymphocytes (%) (Auto) (test code = 736-9) 32.8 18.0-39.1 [facility] McKinneyMonocytes (%) (Auto)2019-03-21 06:31:00* Test Item Value Reference Range Interpretation Comments Monocytes (%) (Auto) (test code = 5905-5) 7.0 4.4-11.3 [facility] McKinneyEosinophils (%) (Auto)2019-03-21 06:31:00 * Test Item Value Reference Range Interpretation Comments Eosinophils (%) (Auto) (test code = 713-8) 4.5 0.0-6.0 [facility] McKinneyBasophils (%) (Auto)2019-03-21 06:31:00* Test Item Value Reference Range Interpretation Comments Basophils (%) (Auto) (test code = 706-2) 1.2 0.0-1.0 H [facility] McKinneyIM GRANULOCYTES %2019-03-21 06:31:00* Test Item Value Reference Range Interpretation Comments IM GRANULOCYTES % (test code = IM GRANULOCYTES %) 0.0 0.0- 1.0 [facility] McKinneyNeutrophils # (Auto)2019-03-21 06:31:00* Test Item Value Reference Range Interpretation Comments Neutrophils # (Auto) (test code = 751-8) 3.5 2.1-6.9 [facility] McKinneyLymphocytes # (Auto)2019-03-21 06:31:00* Test Item Value Reference Range Interpretation Comments Lymphocytes # (Auto) (test code = 99800-4) 2.1 1.0-3.2 [facility] McKinneyMonocytes # (Auto)2019-03-21 06:31:00* Test Item Value Reference Range Interpretation Comments Monocytes # (Auto) (test code = 742-7) 0.5 0.2-0.8 [facility]neyEosinophils # (Auto)2019-03-21 06:31:00* Test Item Value Reference Range Interpretation Comments Eosinophils # (Auto) (test code = 711-2) 0.3 0.0-0.4 [facility] McKinneyBasophils # (Auto)2019-03-21 06:31:00* Test Item Value Reference Range Interpretation Comments Basophils # (Auto) (test code = 704-7) 0.1 0.0-0.1 [facility] McKinneyAbsolute Immature Granulocyte (auto 2019-03-21 06:31:00* Test Item Value Reference Range Interpretation Comments Absolute Immature Granulocyte (auto (allie t code = Absolute Immature Granulocyte (auto) 0 0-0.1 [facility] McKinneyBlood Fckrphk1376-14-95 15:40:00* Test Item Value Reference Range Interpretation Comments Blood Culture (test code = 79791544) NO GROWTH AFTER 5 DAYS, FINAL REPORT [facility]ufkinodium Ddemt7090-38-72 16:13:00* Test Item Value Reference Range Interpretation Comments Sodium Level (test code = 2951-2) 133 136-145 L [facility] McKinneyPotassium Jiimg0363-06-68 16:13:00* Test Item Value Reference Range Interpretation Comments Potassium Level (test code = 2823-3) 3.8 3.5-5.1 [facility] McKinneyChloride Nwvwc0419-06-42 16:13:00* Test Item Value Reference Range Interpretation Comments Chloride Level (test code = 2075-0) 96 98-107 L [facility] McKinneyCarbon Dioxide Rvtsk6857-48-93 16:13:00* Test Item Value Reference Range Interpretation Comments Carbon Dioxide Level (test code = 2028-9) 28 22-29 [facility] McKinneyAnion Jjr3758-21-09 16:13:00* Test Item Value Reference Range Interpretation Comments Anion Gap (test code = 42714-1) 12.8 8-16 [facility] McKinneyBlood Urea Fiwbzvdk9645-52-75 16:13:00* Test Item Value Reference Range Interpretation Comments Blood Urea Nitrogen (test code = 3094-0) 19 7-26 [facility] McKinneyCreatinine2019-07-24 16:13:00* Test Item Value Reference Range Interpretation Comments Creatinine (test code = 2160-0) 0.80 0.57-1.11 [facility] McKinneyBUN/Creatinine Zkzyb4247-72-61 16:13:00* Test Item Value Reference Range Interpretation Comments BUN/Creatinine Ratio (test code = 3097-3) 24 6-25 [facility] McKinneyEstimat Glomerular Filtration Rate 2019-03-03 16:13:00* Test Item Value Reference Range Interpretation Comments Estimat Glomerular Filtration Rate (test code = 611303201) > 60 >60 Ranges were taken from the National Kidney Disease Education Program and the [facility] Kid[facility] Foundation literature.Reference ranges:60 or greater: Afjehk18-53 ( for 3 consecutive months): Chronic kidney disease 15 or less: Kidney failureBaylor Scott & White Medical Center – McKinneyGlucose Oocuy5128-54-96 16:13:00* Test Item Value Reference Range Interpretation Comments Glucose Level (test code = NJA2016) 380 74-118 H [facility] McKinneyCalcium Ulhph8138-05-76 16:13:00* Test Item Value Reference Range Interpretation Comments Calcium Level (test code = 83921-4) 9.5 8.4-10.2 [facility] McKinneyMagnesium Rucdo6095-03-65 16:13:00* Test Item Value Reference Range Interpretation Comments Magnesium Level (test code = 87558-8) 1.7 1.3-2.1 [facility] McKinneyTotal Pgrlmrgzd0107-34-52 16:13:00* Test Item Value Reference Range Interpretation Comments Total Bilirubin (test code = 1975-2) 0.5 0.2-1.2 [facility] McKinneyAspartate Amino Transf (AST/SGOT) 2019-03-03 16:13:00* Test Item Value Reference Range Interpretation Comments Aspartate Amino Transf (AST/SGOT) (test code = Aspartate Amino Transf (AST/SGOT)) 24 5-34 [facility] McKinneyAlanine Aminotransferase (ALT/SGPT) 2019-03-03 16:13:00* Test Item Value Reference Range Interpretation Comments Alanine Aminotransferase (ALT/SGPT) (test code = 1742-6) 44 0-55 [facility] McKinneyTotal Cbooqdd6524-81-84 16:13:00* Test Item Value Reference Range Interpretation Comments Total Protein (test code = 2885-2) 7.9 6.5-8.1 [facility] McKinneyAlbumin2019-07-24 16:13:00* Test Item Value Reference Range Interpretation Comments Albumin (test code = 1751-7) 2.2 3.5-5.0 L [facility] McKinneyGlobulin2019-07-24 16:13:00* Test Item Value Reference Range Interpretation Comments Globulin (test code = 86375-4) 5.7 2.3-3.5 H [facility] McKinneyAlbumin/Globulin Qqwwm0420-14-43 16:13:00 * Test Item Value Reference Range Interpretation Comments Albumin/Globulin Ratio (test code = 1759-0) 0.4 0.8-2.0 L [facility] McKinneyAlkaline Gkpvckwutgp4498-38-80 16:13:00* Test Item Value Reference Range Interpretation Comments Alkaline Phosphatase (test code = 6768-6) 92 40-150 [facility] McKinneyMagnesium Yaxbn3133-51-81 16:13:00* Test Item Value Reference Range Interpretation Comments Magnesium Level (test code = 04500-0) 1.7 1.3-2.1 [facility] McKinneyTotal Nsjrhnziq3246-26-16 16:13:00* Test Item Value Reference Range Interpretation Comments Total Bilirubin (test code = 1975-2) 0.5 0.2-1.2 [facility] McKinneyAspartate Amino Transf (AST/SGOT) 2019-03-03 16:13:00* Test Item Value Reference Range Interpretation Comments Aspartate Amino Transf (AST/SGOT) (test code = Aspartate Amino Transf (AST/SGOT)) 24 5-34 [facility] McKinneyAlanine Aminotransferase (ALT/SGPT) 2019-03-03 16:13:00* Test Item Value Reference Range Interpretation Comments Alanine Aminotransferase (ALT/SGPT) (test code = 1742-6) 44 0-55 [facility] Cujqjkb2341-33-11 16:13:00* Test Item Value Reference Range Interpretation Comments Total Protein (test code = 2885-2) 7.9 6.5-8.1 [facility] McKinneyAlbumin2019-07-24 16:13:00* Test Item Value Reference Range Interpretation Comments Albumin (test code = 1751-7) 2.2 3.5-5.0 L [facility] McKinneyGlobulin2019-07-24 16:13:00* Test Item Value Reference Range Interpretation Comments Globulin (test code = 02064-1) 5.7 2.3-3.5 H [facility] McKinneyAlbumin/Globulin Conof9162-83-39 16:13:00 * Test Item Value Reference Range Interpretation Comments Albumin/Globulin Ratio (test code = 1759-0) 0.4 0.8-2.0 L [facility] McKinneyAlkaline Hdwxqjjxgst8085-92-80 16:13:00* Test Item Value Reference Range Interpretation Comments Alkaline Phosphatase (test code = 6768-6) 92 40-150 [facility] McKinneyWhite Blood Vkeon3500-94-44 15:51:00* Test Item Value Reference Range Interpretation Comments White Blood Count (test code = 6690-2) 10.33 4.8-10.8 [facility] McKinneyRed Blood Qalzs9921-98-27 15:51:00* Test Item Value Reference Range Interpretation Comments Red Blood Count (test code = 789-8) 5.33 3.6-5.1 H [facility] McKinneyHemoglobin2019-07-24 15:51:00* Test Item Value Reference Range Interpretation Comments Hemoglobin (test code = 16628-1) 14.8 12.0-16.0 [facility] McKinneyHematocrit2019-07-24 15:51:00* Test Item Value Reference Range Interpretation Comments Hematocrit (test code = 4544-3) 44.6 34.2-44.1 H [facility] McKinneyMean Corpuscular Gcplqu1205-53-68 15:51:00* Test Item Value Reference Range Interpretation Comments Mean Corpuscular Volume (test code = 787-2) 83.7 81-99 [facility] McKinneyMean Corpuscular Warrlcivyy1981-44-54 15:51:00* Test Item Value Reference Range Interpretation Comments Mean Corpuscular Hemoglobin (test code = 785-6) 27.8 28-32 L [facility] McKinneyMean Corpuscular Hemoglobin Concent 2019-03-03 15:51:00* Test Item Value Reference Range Interpretation Comments Mean Corpuscular Hemoglobin Concent (test code = 786-4) 33.2 31-35 [facility] McKinneyRed Cell Distribution Iphqk5195-27-94 15:51:00* Test Item Value Reference Range Interpretation Comments Red Cell Distribution Width (test code = 92835-4) 13.5 11.7 -14.4 [facility] McKinneyPlatelet Iyrip0242-77-64 15:51:00* Test Item Value Reference Range Interpretation Comments Platelet Count (test code = 777-3) 343 140-360 [facility] McKinneyNeutrophils (%) (Auto)2019-03-03 15:51:00 * Test Item Value Reference Range Interpretation Comments Neutrophils (%) (Auto) (test code = 72942-1) 67.6 38.7-80.0 [facility] McKinneyLymphocytes (%) (Auto)2019-03-03 15:51:00 * Test Item Value Reference Range Interpretation Comments Lymphocytes (%) (Auto) (test code = 736-9) 21.9 18.0-39.1 [facility] McKinneyMonocytes (%) (Auto)2019-03-03 15:51:00* Test Item Value Reference Range Interpretation Comments Monocytes (%) (Auto) (test code = 5905-5) 7.2 4.4-11.3 [facility] McKinneyEosinophils (%) (Auto)2019-03-03 15:51:00 * Test Item Value Reference Range Interpretation Comments Eosinophils (%) (Auto) (test code = 713-8) 2.2 0.0-6.0 [facility] McKinneyBasophils (%) (Auto)2019-03-03 15:51:00* Test Item Value Reference Range Interpretation Comments Basophils (%) (Auto) (test code = 706-2) 0.8 0.0-1.0 [facility] McKinneyIM GRANULOCYTES %2019-03-03 15:51:00* Test Item Value Reference Range Interpretation Comments IM GRANULOCYTES % (test code = IM GRANULOCYTES %) 0.3 0.0- 1.0 [facility] McKinneyNeutrophils # (Auto)2019-03-03 15:51:00* Test Item Value Reference Range Interpretation Comments Neutrophils # (Auto) (test code = 751-8) 7.0 2.1-6.9 H [facility] McKinneyLymphocytes # (Auto)2019-03-03 15:51:00* Test Item Value Reference Range Interpretation Comments Lymphocytes # (Auto) (test code = 92651-1) 2.3 1.0-3.2 [facility] McKinneyMonocytes # (Auto)2019-03-03 15:51:00* Test Item Value Reference Range Interpretation Comments Monocytes # (Auto) (test code = 742-7) 0.7 0.2-0.8 [facility] (Auto)2019-03-03 15:51:00* Test Item Value Reference Range Interpretation Comments Eosinophils # (Auto) (test code = 711-2) 0.2 0.0-0.4 [facility] # (Auto)2019-03-03 15:51:00* Test Item Value Reference Range Interpretation Comments Basophils # (Auto) (test code = 704-7) 0.1 0.0-0.1 [facility]ney[facility] Immature Granulocyte (auto 2019-03-03 15:51:00* Test Item Value Reference Range Interpretation Comments Absolute Immature Granulocyte (auto (allie t code = Absolute Immature Granulocyte (auto) 0.03 0-0.1 [facility] [id number] 15:32:00* Test Item Value Reference Range Interpretation Comments Urine WBC (test code = 5821-4) 11-20 0-5 H [facility] [id number] 15:32:00* Test Item Value Reference Range Interpretation Comments Urine RBC (test code = 50238-3) 6-10 0-5 [facility] [id number] 15:32:00* Test Item Value Reference Range Interpretation Comments Urine Bacteria (test code = 00202-9) MANY NONE [facility] Epithelial [id number] 15:32:00 * Test Item Value Reference Range Interpretation Comments Urine Epithelial Cells (test code = 36570-0) NONE NONE [facility] [id number] 15:32:00* Test Item Value Reference Range Interpretation Comments Urine WBC (test code = 5821-4) 11-20 0-5 [facility] [id number] 15:32:00* Test Item Value Reference Range Interpretation Comments Urine RBC (test code = 35049-5) 6-10 0-5 [facility] [id number] 15:32:00* Test Item Value Reference Range Interpretation Comments Urine Bacteria (test code = 67980-0) MANY NONE [facility] Epithelial [id number] 15:32:00 * Test Item Value Reference Range Interpretation Comments Urine Epithelial Cells (test code = 06883-6) NONE NONE [facility] [id number] 15:17:00* Test Item Value Reference Range Interpretation Comments Urine Color (test code = 5778-6) YELLOW YELLOW [facility] [id number] 15:17:00* Test Item Value Reference Range Interpretation Comments Urine Clarity (test code = 82956-8) CLOUDY CLEAR H [facility] Specific [id number] 15:17:00 * Test Item Value Reference Range Interpretation Comments Urine Specific [place] (test code = 5811-5) 1.020 1.010-1.02 5 [facility] [id number] 15:17:00* Test Item Value Reference Range Interpretation Comments Urine pH (test code = 55269-8) 6 5-7 [facility] Leukocyte [id number] 15:17:00* Test Item Value Reference Range Interpretation Comments Urine Leukocyte Esterase (test code = 92796-7) SMALL NEGATIV E [facility] [id number] 15:17:00* Test Item Value Reference Range Interpretation Comments Urine Nitrite (test code = 11683-0) NEGATIVE NEGATIVE [facility] [id number] 15:17:00* Test Item Value Reference Range Interpretation Comments Urine Protein (test code = 82318-9) 3+ NEGATIVE H [facility] Glucose (UA)2019-03-03 15:17:00* Test Item Value Reference Range Interpretation Comments Urine Glucose (UA) (test code = 24504-2) 3+ NEGATIVE [facility] [id number] 15:17:00* Test Item Value Reference Range Interpretation Comments Urine Ketones (test code = 47252-6) NEGATIVE NEGATIVE [facility] Jkjzizlgcsmu5052-46-12 15:17:00* Test Item Value Reference Range Interpretation Comments Urine Urobilinogen (test code = 19247-4) 0.2 0.2-1 [facility] Xqcgwobpt0133-29-08 15:17:00* Test Item Value Reference Range Interpretation Comments Urine Bilirubin (test code = 1977-8) NEGATIVE NEGATIVE [facility] [id number] 15:17:00* Test Item Value Reference Range Interpretation Comments Urine Blood (test code = 43271-5) MODERATE NEGATIVE [facility] [id number] 15:17:00* Test Item Value Reference Range Interpretation Comments Urine Color (test code = 5778-6) YELLOW YELLOW [facility] [id number] 15:17:00* Test Item Value Reference Range Interpretation Comments Urine Clarity (test code = 85424-0) CLOUDY CLEAR H [facility] Specific [id number] 15:17:00 * Test Item Value Reference Range Interpretation Comments Urine Specific [place] (test code = 5811-5) 1.020 1.010-1.02 5 [facility] [id number] 15:17:00* Test Item Value Reference Range Interpretation Comments Urine pH (test code = 73075-4) 6 5-7 [facility] Leukocyte [id number] 15:17:00* Test Item Value Reference Range Interpretation Comments Urine Leukocyte Esterase (test code = 80533-3) SMALL NEGATIV E [facility] [id number] 15:17:00* Test Item Value Reference Range Interpretation Comments Urine Nitrite (test code = 70623-5) NEGATIVE NEGATIVE [facility] Pqfnqxi2012-70-01 15:17:00* Test Item Value Reference Range Interpretation Comments Urine Protein (test code = 20106-2) 3+ NEGATIVE H [facility] Glucose (UA)2019-03-03 15:17:00* Test Item Value Reference Range Interpretation Comments Urine Glucose (UA) (test code = 85499-7) 3+ NEGATIVE [facility] [id number] 15:17:00* Test Item Value Reference Range Interpretation Comments Urine Ketones (test code = 60918-8) NEGATIVE NEGATIVE [facility] Wvvfouylgpck6664-37-47 15:17:00* Test Item Value Reference Range Interpretation Comments Urine Urobilinogen (test code = 31217-1) 0.2 0.2-1 [facility] Enjolnwam3905-70-85 15:17:00* Test Item Value Reference Range Interpretation Comments Urine Bilirubin (test code = 1977-8) NEGATIVE NEGATIVE [facility] [id number] 15:17:00* Test Item Value Reference Range Interpretation Comments Urine Blood (test code = 63988-5) MODERATE NEGATIVE [facility]
--- NOTE | 2020-05-11 16:51 | NUR ---
On prescription paper noted that pt was positive for Influenza A per prescription sent by Dr. Hopkins.
[2020-05-11] MEDS ORDERED: DEXAMETHASONE SOD PHOS 10 MG/1 ML VIAL IV NR (17:00)
[2020-05-11] MEDS ORDERED: SODIUM CHLORIDE 0.9% 1000ML 1,000 ML IV SCH (17:15)
--- NOTE | 2020-05-11 17:24 | Diagnostic Imaging Report ---
Examination: Single AP view of the chest. COMPARISON: Portable chest 03/28/2020 INDICATION: Shortness of breath, cough IMPRESSION: 1. Lines and Tubes: None 2. Lungs are well-inflated. Diffuse bilateral interstitial opacities extending from the ismael, with alveolar opacities in bilateral lower lobes suggesting pulmonary edema. Obscuration of the left hemidiaphragm and left retrocardiac opacity likely representing left pleural effusion associated atelectasis or consolidation. 3. Enlarged cardiac silhouette, stable Central pulmonary venous congestion. 4. No acute bony abnormalities. Signed by: Dr. Stevan Cool M.D. on 05/11/2020 5:21 PM
--- OUTSIDE RECORDS SUMMARY | 2020-05-11 17:54 | XMS REPORT | Continuity of Care Document ---
Author Author [facility] t Organization [facility] Address [address] [place] [address] Phone Unavailable Care Team Providers Care Manager Environmental Affairs Name Role Phone NONSTAFF PCP Unavailable Fernando MARTINEZ Attphys Unavailable VALLES, SOUHEIL Attphys Unavailable DAHU, S JIRIES Attphys Unavailable Fernando MARTINEZ Admphys Unavailable VALLES, SOUHEIL Admphys Unavailable DAHU, S JIRIES Admphys Unavailable Payers Payer Name Policy Type Policy Number Effective Date Expiration Date [facility] [id number] 2019 00:00: 00 [facility] Problems Condition Name Condition Details Condition Category Status Onset Date Resolution Date Last Treatment Date Treating Clinician Comments Source Dehydration Dehydration Problem Active 2016-01-22 00:00:00 [facility] Diarrhea Diarrhea Problem Active 2016-01-22 00:00:00 [facility] Hyperglycemia Hyperglycemia Problem Active 2016-01-22 00:00:00 [facility] Urinary tract infection UTI (urinary tract infection) Problem Active 2016-01-22 00:00:00 [facility] Vomiting Vomiting Problem Active 2016-01-22 00:00:00 [facility] Cellulitis of abdominal wall Problem Active [facility] Suspected severe acute respiratory syndr ome coronavirus 2 (SARS-CoV-2) infection Problem Active [facility] Fever Problem Active [facility] Hypoxemia requiring supplemental oxygen Problem Active [facility] Septic shock Problem Active [facility] Viral pneumonia Problem Active [facility] Elevated troponin I level Problem Active [facility] Allergies, Adverse Reactions, Alerts This patient has no known allergies or adverse reactions. Social History Social Habit Start Date Stop Date Quantity Comments Source Sex Assigned At 1965 00:00:00 1965 00:00:00 Female [facility] Medications Ordered Medication Name Filled Medication Name Start Date Stop Da te Current Medication? Ordering Clinician Indication Dosage Frequency Signature (SIG) Comments Components Source Atorvastatin Calcium Atorvastatin Calcium Yes 80 Daily [facility] Ezetimibe (Zetia) 10 Mg TABLET Ezetimibe (Zetia) 10 Mg TABLET Yes 10 Daily [facility] Gabapentin Gabapentin Yes 400 Twice A Day [facility] Glimepiride Glimepiride Yes 4 Daily [facility] Insulin Aspart (Novolog) 100 Units/1 Ml INJ Insulin As part (Novolog) 100 Units/1 Ml INJ Yes [facility] Levemir Levemir Yes [facility] Lisinopril (Prinavil / Zestril) 20 Mg TABLET Lisinopri l (Prinavil / Zestril) 20 Mg TABLET Yes 20 Daily [facility] Metformin Hcl Metformin Hcl Yes 1000 Twice A Day [facility] Rxqar-3-Ktfs Bmujp-1-Nsyk Yes 1000 Daily [facility] Acetaminophen With Codeine (Tylenol With Codeine #3 Ta blet) 1 Each TABLET Acetaminophen With Codeine (Tylenol With Codeine #3 Tablet) 1 Each TABLET 2020-03-26 00:00:00 No 1 Every 6 Ho urs as needed for Moderate Pain (4-6) [facility] Cephalexin Monohydrate (Keflex) 500 Mg CAPSULE Cephale frankie Monohydrate (Keflex) 500 Mg CAPSULE 2020-03-26 00:00:00 No 500 Every 8 H ours [facility] Clindamycin Hcl Clindamycin Hcl 2019-03-22 00:00:00 No 300 Three Times A Day [facility] Ezetimibe (Zetia) 10 Mg TABLET Ezetimibe (Zetia) 10 Mg TABLET 2019-03-22 00:00:00 No 10 Daily [facility] Vital Signs Vital Name Observation Time Observation Value Comments Source Body Temperature 2020-03-31 17:20:00 97.9 [degF] [facility] Weight 2020-03-30 16:30:00 168.04 [lb_av] [facility] BMI (Body Mass Index) 2020-03-30 16:30:00 30.7 kg/m2 [facility] Procedures This patient has no known procedures. Encounters Start Date/Time End Date/Time Encounter Type Admission Type [facility] Care Department Encounter ID Source 2020-03-26 21:55:00 2020-03-31 20:47:00 Discharged Inpatient 1 HAVEN VALLES [facility] [id number] [facility] 2019-03-19 19:19:00 2019-03-22 19:53:00 Discharged Inpatient [address] [facility] [id number] [facility] 2019-03-08 08:28:00 2019-03-08 08:28:[address] [facility] [id number] [facility] 2019-03-03 14:07:00 2019-03-03 19:00:[address] [facility] [id number] [facility] Results Test Description Test Time Test Comments Results Result Comments Source CHEST SINGLE (PORTABLE) 2020-05-11 17:20:00 [facility] [address] [address] Patient Name: BRIDGETT BAXTER MR #: [id number] : 1965 Age/Sex: 54/F Req #: [id number] Adm Physician: Ordered by: LORIE BOYCE MD Report #: [id number] Location: ER Room/Bed: Procedure: [id number] DX/CHEST SINGLE (PORTABLE) Exam Date: 05/11/20 Exam Time: 1650 REPORT STATUS: Signed Examination: Single AP view of the chest. COMPARISON: Portable chest 03/28/2020 INDICATION: Shortness of breath, cough IMPRESSION: 1. Lines and Tubes: None 2. Lungs are well-inflated. Diffuse bilateral interstitial opacities extending from the ismael, with alveolar opacities in bilateral lower lobes suggesting pulmonary edema. Obscuration of the left hemidiaphragm and left retrocardiac opacity likely representing left pleural effusion associated atelectasis or consolidation. 3. Enlarged cardiac silhouette, stable Central pulmonary venous congestion. 4. No acute bony abnormalities. Signed by: Dr. Stevan Michaels M.D. on 05/11/2020 5:21 PM Dictated By: STEVAN MICHAELS MD 20 Transcribed By: CYNTHIA on 05/11/201720 COPY TO: LORIE BOYCE MD Capillary blood glucose measurement by glucometer (mas s/volume) 2020-03-31 20:37:00 Test Item Bedside Glucose (test code = 96801-3) 235 70-120 Meter ID: [id number] Mansfield Medical Centererum or plasma sodium measurement (moles/volume)2020-03-31 15:00:00* Test Item Value Reference Range Interpretation Comments Sodium Level (test code = 2951-2) 144 136-145 [facility] or plasma potassium measurement (moles/volume)2020-03-31 15:00:00* Test Item Value Reference Range Interpretation Comments Potassium Level (test code = 2823-3) 4.5 3.5-5.1 [facility] or plasma chloride measurement (moles/volume)2020-03-31 15:00:00* Test Item Value Reference Range Interpretation Comments Chloride Level (test code = 2075-0) 105 98-107 [facility] or plasma carbon dioxide, total measurement (moles/volume)2020-03-31 15:00:00* Test Item Value Reference Range Interpretation Comments Carbon Dioxide Level (test code = 2028-9) 27 22-29 [facility] or plasma anion iul9648-33-42 15:00:00* Test Item Value Reference Range Interpretation Comments Anion Gap (test code = 97239-1) 16.5 8-16 [facility] plasma urea nitrogen measurement (mass/volume)2020-03-31 15:00:00* Test Item Value Reference Range Interpretation Comments Blood Urea Nitrogen (test code = 3094-0) 42 7-26 [facility] or plasma creatinine measurement (mass/volume)2020-03-31 15:00:00* Test Item Value Reference Range Interpretation Comments Creatinine (test code = 2160-0) 1.03 0.57-1.11 [facility] or plasma urea nitrogen/creatinine mass mxfnb3176-42-11 15:00:00* Test Item Value Reference Range Interpretation Comments BUN/Creatinine Ratio (test code = 3097-3) 41 6-25 [facility]ated glomerular filtration rate (GFR) hclnlmxfirirt1714-25-99 15:00:00* Test Item Value Reference Range Interpretation Comments Estimat Glomerular Filtration Rate (test code = 301108748) 56 >60 Ranges were taken from the National Kidney Disease Education Program and the [facility] Kidney Foundation literature.Reference ranges:60 or greater: Bqiorx66-61 ( for 3 consecutive months): Chronic kidney disease 15 or less: Kidney failureCHRISTUS Spohn Hospital AliceGlucose ftpmqjyckvj5515-64-76 15:00:00* Test Item Value Reference Range Interpretation Comments Glucose Level (test code = TML3131) 210 74-118 [facility]ere[facility] or plasma calcium measurement (mass/volume)2020-03-31 15:00:00* Test Item Value Reference Range Interpretation Comments Calcium Level (test code = 81865-3) 8.8 8.4-10.2 [facility] plasma magnesium measurement (mass/volume)2020-03-31 15:00:00* Test Item Value Reference Range Interpretation Comments Magnesium Level (test code = 46338-7) 1.8 1.3-2.1 [facility] AliceBlood leukocytes automated count (number/volume)2020-03-31 05:35:00* Test Item Value Reference Range Interpretation Comments White Blood Count (test code = 6690-2) 16.43 4.8-10.8 [facility] Alice[facility] erythrocytes automated count (number/volume)2020-03-31 05:35:00* Test Item Value Reference Range Interpretation Comments Red Blood Count (test code = 789-8) 5.38 3.6-5.1 [facility] AliceBlood hemoglobin measurement (moles/volume)2020-03-31 05:35:00* Test Item Value Reference Range Interpretation Comments Hemoglobin (test code = 54518-3) 13.6 12.0-16.0 [facility] AliceAutomated blood hematocrit (volume fraction)2020-03-31 05:35:00* Test Item Value Reference Range Interpretation Comments Hematocrit (test code = 4544-3) 44.0 34.2-44.1 [facility] AliceAutomated erythrocyte mean corpuscular yzwpxy9885-38-25 05:35:00* Test Item Value Reference Range Interpretation Comments Mean Corpuscular Volume (test code = 787-2) 81.8 81-99 [facility] AliceAutomated erythrocyte mean corpuscular hemoglobin (mass per erythrocyte)2020-03-31 05:35:00* Test Item Value Reference Range Interpretation Comments Mean Corpuscular Hemoglobin (test code = 785-6) 25.3 28-32 [facility] AliceAutomated erythrocyte mean corpuscular hemoglobin concentration measurement (mass/volume)2020-03-31 05:35:00* Test Item Value Reference Range Interpretation Comments Mean Corpuscular Hemoglobin Concent (test code = 786-4) 30.9 31-35 [facility] AliceRDW LzjUz-Dxv6449-98-21 05:35:00* Test Item Value Reference Range Interpretation Comments Red Cell Distribution Width (test code = 11115-4) 17.8 11.7 -14.4 [facility] AliceAutomated blood platelet count (count/volume)2020-03-31 05:35:00* Test Item Value Reference Range Interpretation Comments Platelet Count (test code = 777-3) 534 140-360 This test has been rerun and double checked for accuracy.[facility] AliceAutomated blood segmented neutrophil count as percentage of total zebnjbtbek5540-23-98 05:35:00* Test Item Value Reference Range Interpretation Comments Neutrophils (%) (Auto) (test code = 82149-7) 80.5 38.7-80.0 [facility] blood lymphocyte count as percentage ot total sbqkxzbswc9542-16-60 05:35:00* Test Item Value Reference Range Interpretation Comments Lymphocytes (%) (Auto) (test code = 736-9) 9.7 18.0-39.1 [facility] AliceAutomated blood monocyte count as percentage of total lvskcmbpad8922-37-29 05:35:00* Test Item Value Reference Range Interpretation Comments Monocytes (%) (Auto) (test code = 5905-5) 7.0 4.4-11.3 [facility] AliceAutnov[facility] blood eosinophil count as percentage of total danbhhkpcl0281-04-62 05:35:00* Test Item Value Reference Range Interpretation Comments Eosinophils (%) (Auto) (test code = 713-8) 0.0 0.0-6.0 [facility] AliceAutomated blood basophil count as percentage of total ymdmvihepo8546-66-96 05:35:00* Test Item Value Reference Range Interpretation Comments Basophils (%) (Auto) (test code = 706-2) 0.2 0.0-1.0 [facility] AliceFluoroscopic procedure less than one hour rdwvkofw3219-68-39 05:35:00* Test Item Value Reference Range Interpretation Comments IM GRANULOCYTES % (test code = IM GRANULOCYTES %) 2.6 0.0- 1.0 [facility] AliceAutomated blood neutrophil count 2020-03-31 05:35:00* Test Item Value Reference Range Interpretation Comments Neutrophils # (Auto) (test code = 751-8) 13.2 2.1-6.9 [facility] AliceBlood lymphocytes count (number/volume) 2020-03-31 05:35:00* Test Item Value Reference Range Interpretation Comments Lymphocytes # (Auto) (test code = 16845-5) 1.6 1.0-3.2 [facility] AliceBlood monocytes automated count (number/volume)2020-03-31 05:35:00* Test Item Value Reference Range Interpretation Comments Monocytes # (Auto) (test code = 742-7) 1.2 0.2-0.8 [facility] AliceAutomated blood eosinophil count 2020-03-31 05:35:00* Test Item Value Reference Range Interpretation Comments Eosinophils # (Auto) (test code = 711-2) 0.0 0.0-0.4 [facility] AliceAutomated blood basophil count (count/volume)2020-03-31 05:35:00* Test Item Value Reference Range Interpretation Comments Basophils # (Auto) (test code = 704-7) 0.0 0.0-0.1 [facility] AliceFluoroscopic procedure less than one hour glwrhbrm2548-98-19 05:35:00* Test Item Value Reference Range Interpretation Comments Absolute Immature Granulocyte (auto (allie t code = Absolute Immature Granulocyte (auto) 0.42 0-0.1 [facility]ererum or plasma total bilirubin measurement (mass/volume)2020-03-31 05:35:00* Test Item Value Reference Range Interpretation Comments Total Bilirubin (test code = 1975-2) 0.3 0.2-1.2 [facility] AliceFluoroscopic procedure less than one hour eqtllwog9977-63-07 05:35:00* Test Item Value Reference Range Interpretation Comments Aspartate Amino Transf (AST/SGOT) (test code = Aspartate Amino Transf (AST/SGOT)) 32 5-34 [facility]ererum or plasma alanine aminotransferase measurement (enzymatic activity/volume)2020-03-31 05:35:00* Test Item Value Reference Range Interpretation Comments Alanine Aminotransferase (ALT/SGPT) (test code = 1742-6) 52 0-55 [facility]ererum or plasma protein measurement (mass/volume)2020-03-31 05:35:00* Test Item Value Reference Range Interpretation Comments Total Protein (test code = 2885-2) 6.4 6.5-8.1 [facility] or plasma albumin measurement (mass/volume)2020-03-31 05:35:00* Test Item Value Reference Range Interpretation Comments Albumin (test code = 1751-7) 1.3 3.5-5.0 [facility] AlicePlasma globulin measurement (mass/volume) 2020-03-31 05:35:00* Test Item Value Reference Range Interpretation Comments Globulin (test code = 90095-6) 5.1 2.3-3.5 [facility]ererum or plasma albumin/globulin mass fyopc6192-74-68 05:35:00* Test Item Value Reference Range Interpretation Comments Albumin/Globulin Ratio (test code = 1759-0) 0.3 0.8-2.0 [facility]ererum or plasma alkaline phosphatase measurement (enzymatic activity/volume)2020-03-31 05:35:00* Test Item Value Reference Range Interpretation Comments Alkaline Phosphatase (test code = 6768-6) 107 40-150 [facility] Utu-wFxg0772-59-21 05:35:00* Test Item Value Reference Range Interpretation Comments B-Type Natriuretic Peptide (test code = 60274-3) 581.8 0-100 [facility] AliceFluoroscopic procedure less than one hour epzdefhl4033-41-31 08:39:00* Test Item Value Reference Range Interpretation Comments Differential Total Cells Counted (test code = Differterence tial Total Cells Counted) 100 [facility] AliceManual blood neutrophils/100 leukocytes 2020-03-30 08:39:00* Test Item Value Reference Range Interpretation Comments Neutrophils % (Manual) (test code = 77528-3) 86 40-[address] [facility] lymphocytes/100 leukocytes 2020-03-30 08:39:00* Test Item Value Reference Range Interpretation Comments Lymphocytes % (Manual) (test code = 737-7) 6 19-48 [facility] AliceManual blood monocytes/100 leukocytes 2020-03-30 08:39:00* Test Item Value Reference Range Interpretation Comments Monocytes % (Manual) (test code = 744-3) 8 3.4-9.0 [facility]Bl[facility] nucleated erythrocytes count (number/volume)2020-03-30 08:39:00* Test Item Value Reference Range Interpretation Comments Nucleated Red Blood Cells (test code = 08217-0) 5 [facility]Bl[facility] platelets count by estimate (number/volume)2020-03-30 08:39:00* Test Item Value Reference Range Interpretation Comments Platelet Estimate (test code = 18267-1) SLIGHTLY INCREASED [facility] AlicePlatelet bmimglhsir0802-39-00 08:39:00* Test Item Value Reference Range Interpretation Comments Platelet Morphology Comment (test code = 02968-9) NORMAL [facility] anisocytosis detection by light jlaahkwxtn0854-01-17 08:39:00* Test Item Value Reference Range Interpretation Comments Anisocytosis (test code = 702-1) SLIGHT [facility] ovalocytes detection by light icdgjejwyh2917-95-13 08:39:00* Test Item Value Reference Range Interpretation Comments Ovalocytes (test code = 774-0) FEW [facility] AliceElliptocyte wtltfvefe2139-56-50 08:39:00 * Test Item Value Reference Range Interpretation Comments Elliptocytes (test code = 65718-1) SLIGHT [facility] AliceRBC awxhngenxk8585-92-99 08:39:00* Test Item Value Reference Range Interpretation Comments Red Cell Morphology Comment (test code = 6742-1) ABNORMAL [facility] triglyceride measurement (mass/volume)2020-03-29 04:28:00* Test Item Value Reference Range Interpretation Comments Triglycerides Level (test code = 2571-8) 133 0-149 [facility]ererum or plasma cholesterol measurement (mass/volume)2020-03-29 04:28:00* Test Item Value Reference Range Interpretation Comments Cholesterol Level (test code = 2093-3) 131 0-199 Less than 200 mg/dL Low Xdxz585 - 239 mg/dL Borderline Rrqo504 m g/dl and greater High Risk [facility]ererum or plasma cholesterol in LDL measurement (mass/volume) 2020-03-29 04:28:00* Test Item Value Reference Range Interpretation Comments LDL Cholesterol (test code = 2089-1) 69 60-130 [facility]ererum or plasma cholesterol in HDL measurement (mass/volume)2020-03-29 04:28:00* Test Item Value Reference Range Interpretation Comments HDL Cholesterol (test code = 2085-9) 35 40-60 [facility]ererum or plasma total cholesterol/cholesterol in HDL mass ckjgk9006-87-30 04:28:00* Test Item Value Reference Range Interpretation Comments Cholesterol/HDL Ratio (test code = 9830-1) 3.7 3.0-3.6 [facility]ererum or plasma thyrotropin measurement by detection limit <= 0.005 miu/l (units/volume)2020-03-29 04:28:00* Test Item Value Reference Range Interpretation Comments Thyroid Stimulating Hormone (TSH) (test code = 12467-9) 0.529 0.350-4.940 [facility]2020-03-28 08:19:00 [facility] [address] [place] [address] Patient Name: BRIDGETT BAXTER MR #: [id number] : 1965 Age/Sex: 54/F Req #: [id number] Adm Physician: HAVEN VALLES MD Ordered by: CESAR MARTINEZ MD Report #: [id number] Location: ICU Room/Bed: ICU [facility] Procedure: [id number] DX/OSVALDO ST SINGLE (PORTABLE) Exam Date: 03/28/20 [...] MARTINEZ MD Manual blood band neutrophils form/100 mebgiyjmfs7905-50-64 04:23:00* Test Item Value Reference Range Interpretation Comments Band Neutrophils % (test code = 764-1) 1 [facility] AliceBlood poikilocytosis detection by light lrawtqygsk8583-10-99 04:23:00* Test Item Value Reference Range Interpretation Comments Poikilocytosis (test code = 779-9) SLIGHT [facility]ererum or plasma creatine kinase measurement (enzymatic activity/volume)2020-03-27 12:15:00* Test Item Value Reference Range Interpretation Comments Creatine Kinase (test code = 2157-6) 1142 29168 [facility]ererum or plasma creatine kinase MB measurement (mass/volume)2020-03-27 12:15:00* Test Item Value Reference Range Interpretation Comments Creatine Kinase MB (test code = 25471-7) 18.10 0-5.0 [facility] AliceTroponin I measurement by highly sensitive enzyme yljqojsauer1522-01-31 12:15:00* Test Item Value Reference Range Interpretation Comments Troponin I (test code = 46748-6) 0.446 0-0.300 [facility] SINGLE (PORTABLE)2020-03-26 19:07:00 [facility] [address] [address] Patient Name: BRIDGETT BAXTER MR #: [id number] : 1965 Age/Sex: 54/F Req #: [id number] Adm Physician: Ordered by: LORIE BOYCE MD Report #: [id number] Location: ER Room/Bed: Procedure: [id number] DX/C HEST SINGLE (PORTABLE) Exam Date: 03/26/20 [...] (PT) in platelet poor plasma by coagulation cgugt9952-56-59 18:00:00* Test Item Value Reference Range Interpretation Comments Prothrombin Time (test code = 5902-2) 16.0 11.9-14.5 [facility] AliceINR in Platelet poor plasma by Coagulation mrlbc4154-05-07 18:00:00* Test Item Value Reference Range Interpretation Comments Prothromb Time International Ratio (test code = 6301-6) 1.21 Oral Anticoagulant Therapy INR Values:1. Low Intensity Therapy 1.5 - 2.02 . Moderate Intensity Therapy 2.0 - 3.03. High Intensity Therapy(1) 2.5 - 3. 54. High Intensity Therapy(2) 3.0 - 4.05. Panic Value INR > 5.0 [facility] AliceActivated partial thromboplastin time (aPTT) in platelet poor plasma by coagulation loexg1890-97-81 18:00:00* Test Item Value Reference Range Interpretation Comments Activated Partial Thromboplast Time (test code = 17851-0) 40.7 23.8-35.5 [facility] AliceUrine color edibzrgrojxfd2413-06-11 18:00:00* Test Item Value Reference Range Interpretation Comments Urine Color (test code = 5778-6) YELLOW YELLOW [facility] AliceUrine jrhjlao2151-28-90 18:00:00* Test Item Value Reference Range Interpretation Comments Urine Clarity (test code = 62728-9) HAZY CLEAR [facility] Centerpecific gravity of Urine by Test strip 2020-03-26 18:00:00* Test Item Value Reference Range Interpretation Comments Urine Specific [place] (test code = 5811-5) 1.025 1.010-1.02 5 [facility] Alice[facility] pH measurement by automated test tgjrt1624-28-00 18:00:00* Test Item Value Reference Range Interpretation Comments Urine pH (test code = 44581-6) 5.5 5-7 [facility] AliceU[facility] leukocyte esterase detection by iuhnlszj2690-11-32 18:00:00* Test Item Value Reference Range Interpretation Comments Urine Leukocyte Esterase (test code = 5799-2) NEGATIVE NEGATIVE [facility] AliceUrine nitrite aladjapgf3404-11-75 18:00:00* Test Item Value Reference Range Interpretation Comments Urine Nitrite (test code = 02391-0) NEGATIVE NEGATIVE [facility] AliceUrine protein measurement by test strip (mass/volume)2020-03-26 18:00:00* Test Item Value Reference Range Interpretation Comments Urine Protein (test code = 5804-0) >=300 NEGATIVE [facility] AliceUrine glucose dkctdsmgm0580-87-45 18:00:00* Test Item Value Reference Range Interpretation Comments Urine Glucose (UA) (test code = 2349-9) 1+ NEGATIVE [facility] AliceUrine ketones detection by automated test cxvvj4949-47-27 18:00:00* Test Item Value Reference Range Interpretation Comments Urine Ketones (test code = 16118-5) NEGATIVE NEGATIVE [facility] AliceUrine urobilinogen measurement by test strip (mass/volume)2020-03-26 18:00:00* Test Item Value Reference Range Interpretation Comments Urine Urobilinogen (test code = 40067-4) 1 0.2-1 [facility] total bilirubin measurement (mass/volume)2020-03-26 18:00:00* Test Item Value Reference Range Interpretation Comments Urine Bilirubin (test code = 1978-6) SMALL NEGATIVE [facility] AliceU[facility] erythrocytes blghsquih6067-84-14 18:00:00* Test Item Value Reference Range Interpretation Comments Urine Blood (test code = 87256-8) LARGE NEGATIVE [facility] AliceAutomated urine sediment leukocyte count by microscopy (number/high power field)2020-03-26 18:00:00* Test Item Value Reference Range Interpretation Comments Urine WBC (test code = 5821-4) 6-10 0-5 [facility] AliceErythrocytes detection in urine sediment by light buxmkdqksy9079-84-43 18:00:00* Test Item Value Reference Range Interpretation Comments Urine RBC (test code = 81534-4) 11-20 0-5 [facility] AliceBacteria detection in urine sediment by light aehfvwjurc3364-10-49 18:00:00* Test Item Value Reference Range Interpretation Comments Urine Bacteria (test code = 74134-6) MODERATE NONE [facility] AliceEpithelial cells detection in urine sediment by light jrzrgmalto5452-55-40 18:00:00* Test Item Value Reference Range Interpretation Comments Urine Epithelial Cells (test code = 64017-0) MODERATE NONE [facility] AliceAmorphous sediment detection in urine sediment by light laehurihzd5744-49-64 18:00:00* Test Item Value Reference Range Interpretation Comments Urine Amorphous Sediment (test code = 8246-1) MODERATE FEW [facility] AliceCoarse granular casts detection in urine sediment by light jjgtcjutly7376-80-59 18:00:00* Test Item Value Reference Range Interpretation Comments Urine Coarse Granular Casts (test code = 56631-1) 1-5 >0 [facility] AliceMucus detection in urine sediment by light fixvrvbsox3362-53-57 18:00:00* Test Item Value Reference Range Interpretation Comments Urine Mucus (test code = 8247-9) FEW RARE [facility] AliceFluoroscopic procedure less than one hour owpmewmm2809-51-51 18:00:00* Test Item Value Reference Range Interpretation Comments Lactic Acid Level (test code = Lactic Acid Level) 1.7 0.5- 2.0 [facility] AliceFluoroscopic procedure less than one hour iuqmtass3642-42-25 18:00:00* Test Item Value Reference Range Interpretation [...] under 564(g) of the ACT.Testing performed by [facility] [place], [place] [address]WSX [facility] MarshallBlood vtkobos9600-05-11 17:57:00* Test Item Value Reference Range Interpretation Comments Blood Culture (test code = 14598536) NO GROWTH AFTER 5 DAYS, FINAL [facility] CAD DIGITAL 2019-06-02 09:03:33 - SCR MAMM BILATERAL TAHIRA CAD DIGITALBILATERAL DIGITAL SCREENING MAMMOGRAM 3D/2D WITH CAD: 06/02/2019CLINICAL: Asymptomatic. Digital breast tomosynthesis was performed in addition to routine CC and MLO views. Current mammographic images were evaluated by either a [employer] M-Vu or a [employer] ImageChecker CAD (computer aided detection system). Comparison is made to exams dated 06/01/2018 mammogram and 03/06/2017 mammogram - [facility]- . There are scattered fibroglandular tissues in both breasts. There are benign calcifications in both breasts. No suspicious mass, architectural distortion, malignant type calcification, or lymph node abnormality detected. Breast architecture is stable compared to prior exams.IMPRESSION: BENIGNThere is no mammographic evidence of malignancy. Resume annual screening mammography in one year. Malena hallamn/jose:06/02/2019 09:03:33 [place]: Mario [place], [facility]-FWletter sent: BIRADS 1-2 Normal Mammogram BI-RADS: 2 BenignBedside Xtdhgbc4643-41-36 16:17:00* Test Item Value Reference Range Interpretation Comments Bedside Glucose (test code = 92064-5) 172 70-120 H Meter ID: [id number] [facility] MarshallVancomycin Level Rsbouy6109-29-90 08:37:00* Test Item Value Reference Range Interpretation Comments Vancomycin Level Trough (test code = 4092-3) 10.7 5.0-10.0 Results repeated and called to REGINALDO JOSE at 0834 on 03/22/19 by Reno Erickson . Read back and verified.CHI [facility] MarshallCT RIGHT LOWER EXTREMITY Z2397-67-31 10:44:00 [facility] [address] [address] Patient Name: DERIK BAXTER MR #: [id number] : 1965 Age/Sex: 53/F Req #: [id number] Adm Physician: ENDER EDGAR MD Ordered by: ENDER EDGAR MD Report #: [id number] Location: MED/SURG2 Room/Bed: 210 Procedure: CT/CT RIGHT LOWER EXTREMITY W Exam Date: Exam Ti me: REPORT STATUS: Signed CT Lo wer extremity right with contrast, with reconstructions. CPT code: 77885, 7 6376 Indications: Cellulitis, evaluate for abscess [...] 1048 COPY TO: ENDER EDGAR MD Sodium Jfulz0376-75-26 06:51:00* Test Item Value Reference Range Interpretation Comments Sodium Level (test code = 2951-2) 143 136-145 [facility] AlicePotassium Ahual8680-99-45 06:51:00* Test Item Value Reference Range Interpretation Comments Potassium Level (test code = 2823-3) 4.3 3.5-5.1 [facility] AliceChloride Gjkwv3167-00-34 06:51:00* Test Item Value Reference Range Interpretation Comments Chloride Level (test code = 2075-0) 108 98-107 H [facility] AliceCarbon Dioxide Stkqt3408-60-80 06:51:00* Test Item Value Reference Range Interpretation Comments Carbon Dioxide Level (test code = 2028-9) 26 22-29 [facility] AliceAnion Lyf0709-55-10 06:51:00* Test Item Value Reference Range Interpretation Comments Anion Gap (test code = 56043-6) 13.3 8-16 [facility] AliceBlood Urea Dljabkvp3980-33-13 06:51:00* Test Item Value Reference Range Interpretation Comments Blood Urea Nitrogen (test code = 3094-0) 22 7-26 [facility] AliceCreatinine2019-08-11 06:51:00* Test Item Value Reference Range Interpretation Comments Creatinine (test code = 2160-0) 0.82 0.57-1.11 [facility] AliceBUN/Creatinine Gzzcq4210-55-03 06:51:00* Test Item Value Reference Range Interpretation Comments BUN/Creatinine Ratio (test code = 3097-3) 27 6-25 H [facility] AliceEstimat Glomerular Filtration Rate 2019-03-21 06:51:00* Test Item Value Reference Range Interpretation Comments Estimat Glomerular Filtration Rate (test code = 602672804) > 60 >60 Ranges were taken from the National Kidney Disease Education Program and the [facility] Foundation literature.Reference ranges:60 or greater: Pybras63-75 ( for 3 consecutive months): Chronic kidney disease 15 or less: Kidney failureCHRISTUS Spohn Hospital AliceGlucose Prxjr6177-80-68 06:51:00* Test Item Value Reference Range Interpretation Comments Glucose Level (test code = SVG3616) 165 74-118 H [facility] AliceCalcium Pjtiw1640-62-12 06:51:00* Test Item Value Reference Range Interpretation Comments Calcium Level (test code = 20461-0) 8.7 8.4-10.2 [facility] AliceWhite Blood Udrcd7632-76-89 06:31:00* Test Item Value Reference Range Interpretation Comments White Blood Count (test code = 6690-2) 6.47 4.8-10.8 [facility] AliceRed Blood Dwsbh4808-73-97 06:31:00* Test Item Value Reference Range Interpretation Comments Red Blood Count (test code = 789-8) 4.18 3.6-5.1 [facility] AliceHemoglobin2019-08-11 06:31:00* Test Item Value Reference Range Interpretation Comments Hemoglobin (test code = 75001-8) 11.5 12.0-16.0 L [facility] AliceHematocrit2019-08-11 06:31:00* Test Item Value Reference Range Interpretation Comments Hematocrit (test code = 4544-3) 36.2 34.2-44.1 [facility] AliceMean Corpuscular Dllvqt1566-96-25 06:31:00* Test Item Value Reference Range Interpretation Comments Mean Corpuscular Volume (test code = 787-2) 86.6 81-99 [facility] AliceMean Corpuscular Yljdvhbqhg0921-21-15 06:31:00* Test Item Value Reference Range Interpretation Comments Mean Corpuscular Hemoglobin (test code = 785-6) 27.5 28-32 L [facility] AliceMean Corpuscular Hemoglobin Concent 2019-03-21 06:31:00* Test Item Value Reference Range Interpretation Comments Mean Corpuscular Hemoglobin Concent (test code = 786-4) 31.8 31-35 [facility] AliceRed Cell Distribution Zlgle7022-93-91 06:31:00* Test Item Value Reference Range Interpretation Comments Red Cell Distribution Width (test code = 00802-5) 13.4 11.7 -14.4 [facility] AlicePlatelet Tpajt8366-77-51 06:31:00* Test Item Value Reference Range Interpretation Comments Platelet Count (test code = 777-3) 365 140-360 H [facility] AliceNeutrophils (%) (Auto)2019-03-21 06:31:00 * Test Item Value Reference Range Interpretation Comments Neutrophils (%) (Auto) (test code = 70670-4) 54.5 38.7-80.0 [facility] AliceLymphocytes (%) (Auto)2019-03-21 06:31:00 * Test Item Value Reference Range Interpretation Comments Lymphocytes (%) (Auto) (test code = 736-9) 32.8 18.0-39.1 [facility] AliceMonocytes (%) (Auto)2019-03-21 06:31:00* Test Item Value Reference Range Interpretation Comments Monocytes (%) (Auto) (test code = 5905-5) 7.0 4.4-11.3 [facility] AliceEosinophils (%) (Auto)2019-03-21 06:31:00 * Test Item Value Reference Range Interpretation Comments Eosinophils (%) (Auto) (test code = 713-8) 4.5 0.0-6.0 [facility] AliceBasophils (%) (Auto)2019-03-21 06:31:00* Test Item Value Reference Range Interpretation Comments Basophils (%) (Auto) (test code = 706-2) 1.2 0.0-1.0 H [facility] AliceIM GRANULOCYTES %2019-03-21 06:31:00* Test Item Value Reference Range Interpretation Comments IM GRANULOCYTES % (test code = IM GRANULOCYTES %) 0.0 0.0- 1.0 [facility] AliceNeutrophils # (Auto)2019-03-21 06:31:00* Test Item Value Reference Range Interpretation Comments Neutrophils # (Auto) (test code = 751-8) 3.5 2.1-6.9 [facility] AliceLymphocytes # (Auto)2019-03-21 06:31:00* Test Item Value Reference Range Interpretation Comments Lymphocytes # (Auto) (test code = 18443-5) 2.1 1.0-3.2 [facility] AliceMonocytes # (Auto)2019-03-21 06:31:00* Test Item Value Reference Range Interpretation Comments Monocytes # (Auto) (test code = 742-7) 0.5 0.2-0.8 [facility] AliceEosinophils # (Auto)2019-03-21 06:31:00* Test Item Value Reference Range Interpretation Comments Eosinophils # (Auto) (test code = 711-2) 0.3 0.0-0.4 [facility] AliceBasophils # (Auto)2019-03-21 06:31:00* Test Item Value Reference Range Interpretation Comments Basophils # (Auto) (test code = 704-7) 0.1 0.0-0.1 [facility] AliceAbsolute Immature Granulocyte (auto 2019-03-21 06:31:00* Test Item Value Reference Range Interpretation Comments Absolute Immature Granulocyte (auto (allie t code = Absolute Immature Granulocyte (auto) 0 0-0.1 [facility] AliceBlood Kigufnu0223-82-58 15:40:00* Test Item Value Reference Range Interpretation Comments Blood Culture (test code = 42737215) NO GROWTH AFTER 5 DAYS, FINAL REPORT [facility] Centerodium Clerz2153-34-64 16:13:00* Test Item Value Reference Range Interpretation Comments Sodium Level (test code = 2951-2) 133 136-145 L [facility] AlicePotassium Pnyst5011-21-53 16:13:00* Test Item Value Reference Range Interpretation Comments Potassium Level (test code = 2823-3) 3.8 3.5-5.1 [facility] AliceChloride Ttrzo7027-33-68 16:13:00* Test Item Value Reference Range Interpretation Comments Chloride Level (test code = 2075-0) 96 98-107 L [facility] AliceCarbon Dioxide Yayhj5242-64-34 16:13:00* Test Item Value Reference Range Interpretation Comments Carbon Dioxide Level (test code = 2028-9) 28 22-29 [facility] AliceAnion Nlv0504-71-11 16:13:00* Test Item Value Reference Range Interpretation Comments Anion Gap (test code = 22491-0) 12.8 8-16 [facility] AliceBlood Urea Edktlvbv4917-17-27 16:13:00* Test Item Value Reference Range Interpretation Comments Blood Urea Nitrogen (test code = 3094-0) 19 7-26 [facility] AliceCreatinine2019-07-24 16:13:00* Test Item Value Reference Range Interpretation Comments Creatinine (test code = 2160-0) 0.80 0.57-1.11 [facility] AliceBUN/Creatinine Dpnbg0228-22-03 16:13:00* Test Item Value Reference Range Interpretation Comments BUN/Creatinine Ratio (test code = 3097-3) 24 6-25 [facility] AliceEstimat Glomerular Filtration Rate 2019-03-03 16:13:00* Test Item Value Reference Range Interpretation Comments Estimat Glomerular Filtration Rate (test code = 686804607) > 60 >60 Ranges were taken from the National Kidney Disease Education Program and the [facility] literature.Reference ranges:60 or greater: Fdjdjg87-42 ( for 3 consecutive months): Chronic kidney disease 15 or less: Kidney failureCHRISTUS Spohn Hospital AliceGlucose Zqhch8450-84-93 16:13:00* Test Item Value Reference Range Interpretation Comments Glucose Level (test code = DKS4809) 380 74-118 H [facility] AliceCalcium Cxemr9601-70-20 16:13:00* Test Item Value Reference Range Interpretation Comments Calcium Level (test code = 09030-5) 9.5 8.4-10.2 [facility] AliceMagnesium Dtdfo8870-09-22 16:13:00* Test Item Value Reference Range Interpretation Comments Magnesium Level (test code = 32502-6) 1.7 1.3-2.1 [facility] AliceTotal Sfbclpklf4885-34-64 16:13:00* Test Item Value Reference Range Interpretation Comments Total Bilirubin (test code = 1975-2) 0.5 0.2-1.2 [facility] AliceAspartate Amino Transf (AST/SGOT) 2019-03-03 16:13:00* Test Item Value Reference Range Interpretation Comments Aspartate Amino Transf (AST/SGOT) (test code = Aspartate Amino Transf (AST/SGOT)) 24 5-34 [facility] AliceAlanine Aminotransferase (ALT/SGPT) 2019-03-03 16:13:00* Test Item Value Reference Range Interpretation Comments Alanine Aminotransferase (ALT/SGPT) (test code = 1742-6) 44 0-55 [facility] AliceTotal Vgzgmnc1027-78-40 16:13:00* Test Item Value Reference Range Interpretation Comments Total Protein (test code = 2885-2) 7.9 6.5-8.1 [facility] AliceAlbumin2019-07-24 16:13:00* Test Item Value Reference Range Interpretation Comments Albumin (test code = 1751-7) 2.2 3.5-5.0 L [facility] AliceGlobulin2019-07-24 16:13:00* Test Item Value Reference Range Interpretation Comments Globulin (test code = 67970-8) 5.7 2.3-3.5 H [facility] AliceAlbumin/Globulin Hytpo4791-58-16 16:13:00 * Test Item Value Reference Range Interpretation Comments Albumin/Globulin Ratio (test code = 1759-0) 0.4 0.8-2.0 L [facility] AliceAlkaline Odsiyjkjptu4676-81-82 16:13:00* Test Item Value Reference Range Interpretation Comments Alkaline Phosphatase (test code = 6768-6) 92 40-150 [facility] AliceMagnesium Kqstf3414-87-44 16:13:00* Test Item Value Reference Range Interpretation Comments Magnesium Level (test code = 85050-2) 1.7 1.3-2.1 [facility] AliceTotal Vbypgtfdn4786-47-11 16:13:00* Test Item Value Reference Range Interpretation Comments Total Bilirubin (test code = 1975-2) 0.5 0.2-1.2 [facility] AliceAspartate Amino Transf (AST/SGOT) 2019-03-03 16:13:00* Test Item Value Reference Range Interpretation Comments Aspartate Amino Transf (AST/SGOT) (test code = Aspartate Amino Transf (AST/SGOT)) 24 5-34 [facility] AliceAlanine Aminotransferase (ALT/SGPT) 2019-03-03 16:13:00* Test Item Value Reference Range Interpretation Comments Alanine Aminotransferase (ALT/SGPT) (test code = 1742-6) 44 0-55 [facility] AliceTotal Njkbcph9371-14-05 16:13:00* Test Item Value Reference Range Interpretation Comments Total Protein (test code = 2885-2) 7.9 6.5-8.1 [facility] AliceAlbumin2019-07-24 16:13:00* Test Item Value Reference Range Interpretation Comments Albumin (test code = 1751-7) 2.2 3.5-5.0 L [facility] AliceGlobulin2019-07-24 16:13:00* Test Item Value Reference Range Interpretation Comments Globulin (test code = 02533-4) 5.7 2.3-3.5 H [facility] AliceAlbumin/Globulin Srljv1380-12-63 16:13:00 * Test Item Value Reference Range Interpretation Comments Albumin/Globulin Ratio (test code = 1759-0) 0.4 0.8-2.0 L [facility] AliceAlkaline Ymefpuoegpy2117-26-14 16:13:00* Test Item Value Reference Range Interpretation Comments Alkaline Phosphatase (test code = 6768-6) 92 40-150 [facility] AliceWhite Blood Qcoua9550-91-07 15:51:00* Test Item Value Reference Range Interpretation Comments White Blood Count (test code = 6690-2) 10.33 4.8-10.8 [facility] AliceRed Blood Dsegz0627-03-53 15:51:00* Test Item Value Reference Range Interpretation Comments Red Blood Count (test code = 789-8) 5.33 3.6-5.1 H [facility] AliceHemoglobin2019-07-24 15:51:00* Test Item Value Reference Range Interpretation Comments Hemoglobin (test code = 78323-2) 14.8 12.0-16.0 [facility] AliceHematocrit2019-07-24 15:51:00* Test Item Value Reference Range Interpretation Comments Hematocrit (test code = 4544-3) 44.6 34.2-44.1 H [facility] AliceMean Corpuscular Prjmcu7413-76-24 15:51:00* Test Item Value Reference Range Interpretation Comments Mean Corpuscular Volume (test code = 787-2) 83.7 81-99 [facility] AliceMean Corpuscular Zdfytcbnge4223-20-58 15:51:00* Test Item Value Reference Range Interpretation Comments Mean Corpuscular Hemoglobin (test code = 785-6) 27.8 28-32 L [facility] AliceMean Corpuscular Hemoglobin Concent 2019-03-03 15:51:00* Test Item Value Reference Range Interpretation Comments Mean Corpuscular Hemoglobin Concent (test code = 786-4) 33.2 31-35 [facility] AliceRed Cell Distribution Ibups4803-14-74 15:51:00* Test Item Value Reference Range Interpretation Comments Red Cell Distribution Width (test code = 79875-4) 13.5 11.7 -14.4 [facility] AlicePlatelet Gjyvu4825-72-12 15:51:00* Test Item Value Reference Range Interpretation Comments Platelet Count (test code = 777-3) 343 140-360 [facility] AliceNeutrophils (%) (Auto)2019-03-03 15:51:00 * Test Item Value Reference Range Interpretation Comments Neutrophils (%) (Auto) (test code = 67141-9) 67.6 38.7-80.0 [facility] AliceLymphocytes (%) (Auto)2019-03-03 15:51:00 * Test Item Value Reference Range Interpretation Comments Lymphocytes (%) (Auto) (test code = 736-9) 21.9 18.0-39.1 [facility] AliceMonocytes (%) (Auto)2019-03-03 15:51:00* Test Item Value Reference Range Interpretation Comments Monocytes (%) (Auto) (test code = 5905-5) 7.2 4.4-11.3 [facility] AliceEosinophils (%) (Auto)2019-03-03 15:51:00 * Test Item Value Reference Range Interpretation Comments Eosinophils (%) (Auto) (test code = 713-8) 2.2 0.0-6.0 [facility] AliceBasophils (%) (Auto)2019-03-03 15:51:00* Test Item Value Reference Range Interpretation Comments Basophils (%) (Auto) (test code = 706-2) 0.8 0.0-1.0 [facility] AliceIM GRANULOCYTES %2019-03-03 15:51:00* Test Item Value Reference Range Interpretation Comments IM GRANULOCYTES % (test code = IM GRANULOCYTES %) 0.3 0.0- 1.0 [facility] AliceNeutrophils # (Auto)2019-03-03 15:51:00* Test Item Value Reference Range Interpretation Comments Neutrophils # (Auto) (test code = 751-8) 7.0 2.1-6.9 H [facility] AliceLymphocytes # (Auto)2019-03-03 15:51:00* Test Item Value Reference Range Interpretation Comments Lymphocytes # (Auto) (test code = 37031-2) 2.3 1.0-3.2 [facility] AliceMonocytes # (Auto)2019-03-03 15:51:00* Test Item Value Reference Range Interpretation Comments Monocytes # (Auto) (test code = 742-7) 0.7 0.2-0.8 [facility] AliceEosinophils # (Auto)2019-03-03 15:51:00* Test Item Value Reference Range Interpretation Comments Eosinophils # (Auto) (test code = 711-2) 0.2 0.0-0.4 [facility] AliceBasophils # (Auto)2019-03-03 15:51:00* Test Item Value Reference Range Interpretation Comments Basophils # (Auto) (test code = 704-7) 0.1 0.0-0.1 [facility] AliceAbsolute Immature Granulocyte (auto 2019-03-03 15:51:00* Test Item Value Reference Range Interpretation Comments Absolute Immature Granulocyte (auto (allie t code = Absolute Immature Granulocyte (auto) 0.03 0-0.1 [facility] AliceUrine DON0541-17-02 15:32:00* Test Item Value Reference Range Interpretation Comments Urine WBC (test code = 5821-4) 11-20 0-5 H [facility] AliceUrine OUX7064-39-48 15:32:00* Test Item Value Reference Range Interpretation Comments Urine RBC (test code = 58520-4) 6-10 0-5 H [facility] AliceUrine Xeytysfn5609-90-45 15:32:00* Test Item Value Reference Range Interpretation Comments Urine Bacteria (test code = 96816-7) MANY NONE H [facility] AliceUrine Epithelial Joziv9181-50-41 15:32:00 * Test Item Value Reference Range Interpretation Comments Urine Epithelial Cells (test code = 76854-8) NONE NONE [facility] AliceUrine UWC9677-28-84 15:32:00* Test Item Value Reference Range Interpretation Comments Urine WBC (test code = 5821-4) 11-20 0-5 H [facility] AliceUrine XMK5697-83-84 15:32:00* Test Item Value Reference Range Interpretation Comments Urine RBC (test code = 09683-7) 6-10 0-5 H [facility] AliceUrine Yodfquqb0860-61-94 15:32:00* Test Item Value Reference Range Interpretation Comments Urine Bacteria (test code = 12128-8) MANY NONE H [facility] AliceUrine Epithelial Gqxhb4743-08-31 15:32:00 * Test Item Value Reference Range Interpretation Comments Urine Epithelial Cells (test code = 82615-1) NONE NONE [facility] AliceUrine Xkeya1575-37-20 15:17:00* Test Item Value Reference Range Interpretation Comments Urine Color (test code = 5778-6) YELLOW YELLOW [facility] AliceUrine Mckuidy3091-39-38 15:17:00* Test Item Value Reference Range Interpretation Comments Urine Clarity (test code = 88355-1) CLOUDY CLEAR H [facility] AliceUrine Specific Dfrvdfx6542-94-09 15:17:00 * Test Item Value Reference Range Interpretation Comments Urine Specific [place] (test code = 5811-5) 1.020 1.010-1.02 5 [facility] AliceUrine pN6956-45-64 15:17:00* Test Item Value Reference Range Interpretation Comments Urine pH (test code = 31542-7) 6 5-7 [facility] AliceU[facility] Leukocyte Heorgmmb1781-81-60 15:17:00* Test Item Value Reference Range Interpretation Comments Urine Leukocyte Esterase (test code = 51406-4) SMALL NEGATIV E [facility] AliceUrine Ldkhmtd8625-45-32 15:17:00* Test Item Value Reference Range Interpretation Comments Urine Nitrite (test code = 03963-6) NEGATIVE NEGATIVE [facility] AliceU[facility] Vjnqbxw6287-48-15 15:17:00* Test Item Value Reference Range Interpretation Comments Urine Protein (test code = 50335-6) 3+ NEGATIVE H [facility] AliceUrine Glucose (UA)2019-03-03 15:17:00* Test Item Value Reference Range Interpretation Comments Urine Glucose (UA) (test code = 21769-5) 3+ NEGATIVE [facility] AliceU[facility] Prapkpq3141-55-83 15:17:00* Test Item Value Reference Range Interpretation Comments Urine Ketones (test code = 65580-1) NEGATIVE NEGATIVE [facility] AliceU[facility] Fjszecswbcmz2114-37-21 15:17:00* Test Item Value Reference Range Interpretation Comments Urine Urobilinogen (test code = 66000-8) 0.2 0.2-1 [facility] AliceU[facility] Qvtnaymvh9587-96-21 15:17:00* Test Item Value Reference Range Interpretation Comments Urine Bilirubin (test code = 1977-8) NEGATIVE NEGATIVE [facility] Dijka2616-11-88 15:17:00* Test Item Value Reference Range Interpretation Comments Urine Blood (test code = 06129-3) MODERATE NEGATIVE [facility] AliceU[facility] Bllkx4106-68-27 15:17:00* Test Item Value Reference Range Interpretation Comments Urine Color (test code = 5778-6) YELLOW YELLOW [facility] Xttmiyk5848-14-43 15:17:00* Test Item Value Reference Range Interpretation Comments Urine Clarity (test code = 63270-2) [facility] [id number] 15:17:00 * Test Item Value Reference Range Interpretation Comments Urine Specific [place] (test code = 5811-5) 1.020 1.010-1.02 5 [facility] [id number] 15:17:00* Test Item Value Reference Range Interpretation Comments Urine pH (test code = 93852-6) 6 5-7 [facility] Leukocyte [id number] 15:17:00* Test Item Value Reference Range Interpretation Comments Urine Leukocyte Esterase (test code = 59704-4) SMALL NEGATIV E [facility] [id number] 15:17:00* Test Item Value Reference Range Interpretation Comments Urine Nitrite (test code = 23518-3) NEGATIVE NEGATIVE [facility] [id number] 15:17:00* Test Item Value Reference Range Interpretation Comments Urine Protein (test code = 34246-5) 3+ NEGATIVE H [facility] Glucose (UA)2019-03-03 15:17:00* Test Item Value Reference Range Interpretation Comments Urine Glucose (UA) (test code = 03951-2) 3+ NEGATIVE [facility] [id number] 15:17:00* Test Item Value Reference Range Interpretation Comments Urine Ketones (test code = 99641-4) NEGATIVE NEGATIVE [facility] [id number] 15:17:00* Test Item Value Reference Range Interpretation Comments Urine Urobilinogen (test code = 31623-2) 0.2 0.2-1 [facility] [id number] 15:17:00* Test Item Value Reference Range Interpretation Comments Urine Bilirubin (test code = 1977-8) NEGATIVE NEGATIVE [facility] [id number] 15:17:00* Test Item Value Reference Range Interpretation Comments Urine Blood (test code = 31898-8) MODERATE NEGATIVE [facility]
[2020-05-11] MEDS ORDERED: FUROSEMIDE INJ 10 MG/ML 4 ML VIAL IV NR (18:00)
[2020-05-11] MEDS ORDERED: HYDRALAZINE HCL 20 MG/ML VIAL IV PRN (18:00)
[2020-05-11] MEDS ORDERED: VALSARTAN 80 MG TAB PO NR (18:00)
[2020-05-11] MEDS ORDERED: DEXTROSE 50% SYRINGE 50 ML IV PRN (18:00)
[2020-05-11] MEDS ORDERED: ACETAMINOPHEN 325 MG TAB PO PRN (18:00)
[2020-05-11] MEDS ORDERED: ONDANSETRON HCL INJ 2MG/ML 2ML 2 MG/ML VIAL IV PRN (18:00)
[2020-05-11 18:19] LABS: BASOPHILS # (AUTO) 0.1 (0.0-0.1); BASOPHILS % 1.1 % (0.0-1.0); EOSINOPHILS # (AUTO) 0.4 (0.0-0.4); EOSINOPHILS % 3.2 % (0.0-6.0); HEMATOCRIT 40.1 % (34.2-44.1); HEMOGLOBIN 11.9 g/dL (12.0-16.0); LYMPHOCYTES # (AUTO) 2.3 (1.0-3.2); MEAN CORPUSCULAR HEMOGLOBIN 24.7 pg (28-32); MEAN CORPUSCULAR HGB CONC 29.7 g/dL (31-35); MEAN CORPUSCULAR VOLUME 83.2 fL (81-99); NEUTROPHILS # (AUTO) 7.1 (2.1-6.9); NEUTROPHILS % 65.1 % (38.7-80.0); PLATELET COUNT 431 x10e3/uL (140-360); RED BLOOD COUNT 4.82 x10e6/uL (3.6-5.1); RED CELL DISTRIBUTION WIDTH 15.5 % (11.7-14.4)
[2020-05-11] MEDS: CEFTRIAXONE SOD 1 GM/NS 50 ML 50 ML IV SCH (18:23)
[2020-05-11 18:29] LABS: INR 0.97; PROTHROMBIN TIME 13.4 seconds (11.9-14.5)
[2020-05-11 18:30] LABS: PARTIAL THROMBOPLASTIN TIME 33.3 seconds (23.8-35.5)
[2020-05-11 18:39] LABS: ALBUMIN 3.3 g/dL (3.5-5.0); ALBUMIN/GLOBULIN RATIO 0.6 (0.8-2.0); ANION GAP 14.6 mmol/L (8-16); CREATININE, SERUM 1.27 mg/dL (0.57-1.11); POTASSIUM 4.6 mmol/L (3.5-5.1)
[2020-05-11 18:45] LABS: CREATINE KINASE MB 8.3 ng/mL (0-5.0)
[2020-05-11] MEDS ORDERED: DEXAMETHASONE SOD PHOS INJ 4 MG/ML VIAL ONE (18:54)
[2020-05-11] MEDS ORDERED: FUROSEMIDE INJ 10 MG/ML 2 ML VIAL ONE (18:54)
[2020-05-11] MEDS: AZITHROMYCIN 500MG/NS 250 ML 250 ML IV SCH (18:59)
--- NOTE | 2020-05-11 19:11 | Emergency Department Note ---
History of Present Illnes History of Present Illness Chief Complaint: COVID PUI History of Present Illness This is a 54 year old female PATIENT IN ROM HOME WITH COMPLAINTS OF SHORTNESS OF BREATH AND COUGH X 2 DAYS; PATIENT RATES PAIN WITH INSPIRATION 10/10, O2 SATS 89% ON ROOM AIR, IMPROVED TO 96% ON 2 L/MIN NASAL CANNULA. Historian: Patient, Family Member Arrival Mode: Car Onset (how long ago): day(s) (2) Radiation: Reports non-radiation Severity: moderate Onset quality: gradual Timing of current episode: constant Progression: worsening Chronicity: new Context: Denies recent illness Relieving factors: none Exacerbating factors: none Associated symptoms: Reports cough, Reports shortness of breath Past Medical/Family History Physician Review I have reviewed the patient's past medical and family history. Any updates have been documented here. Past Medical History Recent Fever: No Clinical Suspicion of Infectio: Yes New/Unexplained Change in Ment: No Past Medical History: Hypertension, Diabetes, Liver Disease, Hyperlipedemia Past Surgical History: Social History Smoking Cessation: Unknown if ever smoked Counseling Performed: No Alcohol Use: None Any Illegal Drug Use: No TB Exposure/Symptoms: No Physically hurt or threatened: No Family History Family history of heart diseas: No Other Last Tetanus: ood Any Pre-Existing Lines (PICC,: No Review of Systems Review of Systems Constitutional: Reports no symptoms EENTM: Reports no symptoms Cardiovascular: Reports no symptoms Respiratory: Reports as per HPI Gastrointestinal: Reports no symptoms Genitourinary: Reports no symptoms Musculoskeletal: Reports no symptoms Integumentary: Reports no symptoms Neurological: Reports no symptoms Psychological: Reports no symptoms Endocrine: Reports no symptoms Hematological/Lymphatic: Reports no symptoms Physical Exam Related Data Allergies: Coded Allergies: No Known Allergies (Unverified , 01/21/16) Triage Vital Signs Vital Signs Date Time Temp Pulse Resp B/P (MAP) Pulse Ox O2 Delivery O2 Flow Rate FiO2 05/11/20 16:07 98.5 87 24 122/94 89 Room Air 05/11/20 16:14 2.0 Vital signs reviewed: Yes Physical Exam CONSTITUTIONAL Constitutional: Present well-developed, Present well-nourished HENT HENT: Present normocephalic, Present atraumatic, Present oropharynx clear/moist, Present nose normal HENT L/R: Present left ext ear normal, Present right ext ear normal EYES Eyes: Reports PERRL, Reports conjunctivae normal NECK Neck: Present ROM normal PULMONARY Pulmonary: Present effort normal, Present other (DECR BS'S BILAT BASES) CARDIOVASCULAR Cardiovascular: Present regular rhythm, Present heart sounds normal, Present capillary refill normal, Present normal rate GASTROINTESTINAL Abdominal: Present soft, Present nontender, Present bowel sounds normal GENITOURINARY Genitourinary: Present exam deferred SKIN Skin: Present warm, Present dry MUSCULOSKELETAL Musculoskeletal: Present ROM normal, Present edema NEUROLOGICAL Neurological: Present alert, Present oriented x 3, Present no gross motor or sensory deficits PSYCHOLOGICAL Psychological: Present mood/affect normal, Present judgement normal Results Laboratory Result Diagram: 05/11/20 1803 05/11/20 1803 Laboratory Laboratory Tests Test 05/11/20 18:17 05/11/20 18:03 White Blood Count 10.87 x10e3/uL (4.8-10.8) Red Blood Count 4.82 x10e6/uL (3.6-5.1) Hemoglobin 11.9 g/dL (12.0-16.0) Hematocrit 40.1 % (34.2-44.1) Mean Corpuscular Volume 83.2 fL (81-99) Mean Corpuscular Hemoglobin 24.7 pg (28-32) Mean Corpuscular Hemoglobin Concent 29.7 g/dL (31-35) Red Cell Distribution Width 15.5 % (11.7-14.4) Platelet Count 431 x10e3/uL (140-360) Neutrophils (%) (Auto) 65.1 % (38.7-80.0) Lymphocytes (%) (Auto) 21.0 % (18.0-39.1) Monocytes (%) (Auto) 9.0 % (4.4-11.3) Eosinophils (%) (Auto) 3.2 % (0.0-6.0) Basophils (%) (Auto) 1.1 % (0.0-1.0) Neutrophils # (Auto) 7.1 (2.1-6.9) Lymphocytes # (Auto) 2.3 (1.0-3.2) Monocytes # (Auto) 1.0 (0.2-0.8) Eosinophils # (Auto) 0.4 (0.0-0.4) Basophils # (Auto) 0.1 (0.0-0.1) Absolute Immature Granulocyte (auto 0.07 x10e3/uL (0-0.1) Prothrombin Time 13.4 seconds (11.9-14.5) Prothromb Time International Ratio 0.97 Activated Partial Thromboplast Time 33.3 seconds (23.8-35.5) Sodium Level 138 mmol/L (136-145) Potassium Level 4.6 mmol/L (3.5-5.1) Chloride Level 100 mmol/L (98-107) Carbon Dioxide Level 28 mmol/L (22-29) Anion Gap 14.6 mmol/L (8-16) Blood Urea Nitrogen 34 mg/dL (7-26) Creatinine 1.27 mg/dL (0.57-1.11) Estimat Glomerular Filtration Rate 44 ML/MIN (60-) BUN/Creatinine Ratio 27 (6-25) Glucose Level 275 mg/dL (74-118) Calcium Level 9.0 mg/dL (8.4-10.2) Total Bilirubin 0.5 mg/dL (0.2-1.2) Aspartate Amino Transf (AST/SGOT) 23 IU/L (5-34) Alanine Aminotransferase (ALT/SGPT) 19 IU/L (0-55) Alkaline Phosphatase 152 IU/L (40-150) Ammonia 42 UG/DL (31-123) Creatine Kinase 378 IU/L (29-168) Creatine Kinase MB 8.30 ng/mL (0-5.0) Troponin I 0.127 ng/mL (0-0.300) B-Type Natriuretic Peptide 535.3 pg/mL (0-100) Total Protein 8.4 g/dL (6.5-8.1) Albumin 3.3 g/dL (3.5-5.0) Globulin 5.1 g/dL (2.3-3.5) Albumin/Globulin Ratio 0.6 (0.8-2.0) Lab results reviewed: Yes Imaging Imaging results reviewed: Yes Assessment & Plan Medical Decision Making MDM COUGH, SOB, HYPOXIA 89% SAT ON RA - CBC, CHEM, ECG, CARDIACS, BNP, CALZADA-CX'S, CXR, FLU SWAB, COVID SWAB - EVAL COVID PNEUMONIA, CAP, INFLUENZA, STEMI/NSTEMI, CHF, INFLUENZA Reassessment Reassessment ADMIT TO ON-CALL TAMIR OLIVER DR - SPOKE WITH HIM AND HE CAME TO SEE PT Assessment & Plan Final Impression: (1) Renal insufficiency (2) Pneumonia (3) Hypoxia Depart Disposition: ADMITTED Last Vital Signs Date Time Temp Pulse Resp B/P (MAP) Pulse Ox O2 Delivery O2 Flow Rate FiO2 05/11/20 16:42 93 24 150/101 100 Nasal Cannula 4.0 05/11/20 16:07 98.5 Home Meds Reported Medications Ezetimibe (ZETIA) 10 Mg Tablet, 10 MG PO DAILY, #30 TAB 03/22/19 Atorvastatin Calcium (ATORVASTATIN CALCIUM) 80 Mg Tablet, 80 MG PO DAILY 03/19/19 Lisinopril (PRINAVIL / ZESTRIL) 20 Mg Tablet, 20 MG PO DAILY 03/19/19 Gabapentin (GABAPENTIN) 400 Mg Capsule, 400 MG PO BID 03/19/19 [Levemir] No Conflict Check 03/19/19 Insulin Aspart (NOVOLOG) 100 Units/1 Ml Inj 03/19/19 [Zwloq-4-Rvfk] 1,000 MG No Conflict Check, 1000 MG PO DAILY 03/19/19 Metformin Hcl (METFORMIN HCL) 1,000 Mg Tablet, 1000 MG PO BID 03/19/19 Glimepiride (GLIMEPIRIDE) 4 Mg Tablet, 4 MG PO DAILY 03/19/19 Medications in the ED Dexamethasone Sodium Phosphate 6 mg ONCE IV Last administered on 05/11/20at 19:00; Admin Dose 6 MG; Start 05/11/20 at 17:00; Stop 05/11/20 at 18:59; Status DC Ceftriaxone Sodium 50 ml @ 100 mls/hr Q24H IV Last administered on 05/11/20at 18:23; Admin Dose 100 MLS/HR; Start 05/11/20 at 16:45; Stop 05/18/20 at 16:44 LORIE BOYCE MD May 11, 2020 19:11
[2020-05-11 19:24] LABS: BILIRUBIN,URINE NEGATIVE (NEGATIVE); CLARITY,URINE SL CLOUDY (CLEAR); COLOR,URINE YELLOW (YELLOW); KETONES,URINE NEGATIVE (NEGATIVE); LEUKOCYTE ESTERASE ,URINE NEGATIVE (NEGATIVE); NITRITE,URINE NEGATIVE (NEGATIVE); PROTEIN,URINE DIPSTICK >=300 (NEGATIVE); URINE UROBILINOGEN 0.2 mg/dL (0.2 - 1)
[2020-05-11] MEDS ORDERED: SODIUM CHLORIDE 0.9% 50ML 50 ML ONE (19:37)
[2020-05-11] MEDS ORDERED: IOPAMIDOL 370 MG/ML 200 ML INFUS..BTL INJ ONE (19:38)
[2020-05-11 19:39] LABS: BACTERIA,URINE RARE /HPF; EPITHELIAL CELLS,URINE FEW /LPF
--- NOTE | 2020-05-11 19:42 | Diagnostic Imaging Report ---
EXAMINATION: CT of the chest with contrast, PE protocol. TECHNIQUE: Spiral CT images of the chest were performed from the lung apices through the level of the adrenal glands after the IV administration of 100 cc of Isovue 370. Thin section reconstructions were obtained with special concentration on the pulmonary arteries. Coronal and sagittal reformatted images were also performed COMPARISON: <none> CLINICAL HISTORY:Dyspnea, shortness of breath and cough for 2 days DISCUSSION: Exam limited by poor contrast opacification of the subsegmental pulmonary arteries. Lungs: No filling defects are identified in the main, right or left pulmonary arteries to their segmental levels, to suggest pulmonary embolism. Several right lower lobe and right middle lobe linear opacities, likely representing subsegmental atelectasis or scarring. Linear opacities likely reflecting subsegmental atelectasis or scarring are also noted in the left lower lobe and lingula secondary to eventration of the left hemidiaphragm. No consolidation or pulmonary nodules. Airways: Central airways are clear. Pleura: <There is no evidence of pleural effusion or pneumothorax.> Heart and mediastinum: Thyroid is unremarkable. Marked cardiomegaly with biatrial and right ventricular enlargement. Moderate pericardial effusion which measure simple fluid density. Aorta is nonaneurysmal. Main pulmonary artery is enlarged, measuring 3.4 cm. There is also enlargement of the right and left pulmonary arteries. Lymph nodes: No mediastinal, hilar or axillary adenopathy. Abdomen: The visualized portions of the liver, pancreas, adrenals and left kidney are unremarkable. Marked reflux of contrast into the IVC and hepatic veins. 8 mm fluid density lesion in the left renal superior pole likely represents a simple cyst. Bones and soft tissues: No aggressive lytic or suspicious focal sclerotic lesions. Generalized osteopenia. Multilevel degenerated discs in the thoracic spine. Soft tissues are grossly unremarkable. IMPRESSION: 1. No evidence of pulmonary embolism to the segmental level. 2. Bilateral lower lobe, right middle lobe and lingular subsegmental atelectasis or scarring. No consolidation. 3. Marked cardiomegaly with moderate simple pericardial effusion. Reflux of contrast into the IVC and hepatic veins consistent with right ventricular dysfunction. 4. Enlarged main pulmonary artery suggesting pulmonary hypertension. Signed by: Dr. Stevan Cool M.D. on 05/11/2020 7:38 PM
[2020-05-11 19:56] VITALS: BP 154/90
[2020-05-11 20:00] VITALS: BP 154/90
--- NOTE | 2020-05-11 20:11 | NUR ---
Nursing report called to Chastity in [facility] Obs unit.
[2020-05-11 20:15] VITALS: BP 154/90
--- NOTE | 2020-05-11 20:16 | NUR ---
Pt taken to floor from CT scan, spoke with accepting RN, and she reports telemetry and pulse ox applied on unit. This RN was unaware that pt was moved to floor from CT.
[2020-05-11] MEDS ORDERED: POLYETHYLENE GLYCOL 3350 17 GM PACK PO PRN (20:45)
[2020-05-11] MEDS: INSULIN REGULAR, HUMAN 100 UNIT/1 ML 3ML VIAL SQ SCH (20:52)
[2020-05-11] MEDS ORDERED: ZOLPIDEM TARTRATE 5 MG TAB PO PRN (21:00)
[2020-05-11 23:00] VITALS: BP 134/82
[2020-05-12] VITALS (8 sets, daily range): BP systolic 94–141; BP diastolic 70–96
--- NOTE | 2020-05-12 00:14 | Consultation ---
DATE OF CONSULTATION: Pulmonary Critical Care Consultation HISTORY OF PRESENT ILLNESS: The patient is a 54-year-old woman. She has a history of diabetes as well as diastolic heart failure. She required hospitalization at [facility] in mid March because of cellulitis in her abdomen as well as low oxygen saturations. She was treated with antibiotics. She also had a Cardiology evaluation and received diuretics. She was subsequently diagnosed with diastolic heart failure. The patient now returns complaining of dyspnea for about one day. She has some pain in the back on the right side laterally that is worse when lying supine and worse when to taking a deep breath. She does not complain of fever. She has minimal cough. She has no abdominal pain, nausea, or vomiting. She apparently went to her doctor and had a nasal swab and was subsequently referred to the ER for possible influenza versus pneumonia. PAST MEDICAL HISTORY: 1. Hypertension. 2. Diabetes. 3. History of prior cellulitis. SOCIAL HISTORY: The patient is not a smoker. She is not a drinker. ALLERGIES: THERE ARE NO KNOWN DRUG ALLERGIES. FAMILY HISTORY: There is a history of diabetes and hypertension. PAST SURGICAL HISTORY: Noncontributory. REVIEW OF SYSTEMS: The patient denies any fever. There is no headache. She has no neck pain. She has no chest pain. She does not have any abdominal pain. She denies nausea or vomiting. She has some dyspnea and some pain on the right side. She has some chronic leg edema. PHYSICAL EXAMINATION: VITAL SIGNS: The patient is afebrile. The blood pressure is 150/101. The respiratory rate is 24. The pulse is 93. The saturation is 100% on 4 L. HEENT: Shows no facial swelling or erythema. LYMPHATIC: Shows no submandibular, cervical, or supraclavicular adenopathy. CARDIAC: Reveals regular rate and rhythm with normal S1, S2. LUNGS: Auscultation of lungs reveals decreased breath sounds at the bases. There is no wheezing. ABDOMEN: Soft and nontender. There is no rebound or guarding. EXTREMITIES: Shows no leg edema. There are some skin changes suggestive of chronic venous stasis. NEUROLOGICAL: Shows no focal abnormalities. IMPRESSION: 1. Acute on chronic diastolic heart failure. 2. Hypertensive urgency with associated diastolic heart failure. 3. Diabetes, requiring oral medications. 4. Obesity. 5. Chronic venous insufficiency of the lower extremities, present on admission. PLAN: 1. The patient is awaiting blood work including CBC and CMP. 2. Antibiotics to cover for possible pneumonia. 3. CT scan of the chest with pulmonary angiogram protocol. 4. Diuretics and diuresis. 5. Continue oxygen. 6. Repeat echocardiogram. MD AIDAN De Santiago/KELLI /[id number]
--- NOTE | 2020-05-12 03:55 | NUR ---
Receive report from bow string maker nurse, Pt no acute distress.
[2020-05-12 06:19] LABS: BASOPHILS # (AUTO) 0.1 (0.0-0.1); BASOPHILS % 0.8 % (0.0-1.0); HEMATOCRIT 38.3 % (34.2-44.1); HEMOGLOBIN 11.5 g/dL (12.0-16.0); LYMPHOCYTES # (AUTO) 1.3 (1.0-3.2); LYMPHOCYTES % 12.3 % (18.0-39.1); MEAN CORPUSCULAR HEMOGLOBIN 25.1 pg (28-32); MEAN CORPUSCULAR VOLUME 83.6 fL (81-99); MONOCYTES # (AUTO) 0.2 (0.2-0.8); MONOCYTES % 1.6 % (4.4-11.3); NEUTROPHILS % 84.6 % (38.7-80.0); PLATELET COUNT 374 x10e3/uL (140-360); RED BLOOD COUNT 4.58 x10e6/uL (3.6-5.1); RED CELL DISTRIBUTION WIDTH 15.6 % (11.7-14.4)
[2020-05-12 06:34] LABS: ALBUMIN 3.1 g/dL (3.5-5.0); ALBUMIN/GLOBULIN RATIO 0.6 (0.8-2.0); ANION GAP 17.6 mmol/L (8-16); CREATININE, SERUM 1.14 mg/dL (0.57-1.11); POTASSIUM 4.6 mmol/L (3.5-5.1)
[2020-05-12 06:58] LABS: PHOSPHORUS 4.5 MG/DL (2.3-4.7)
[2020-05-12] MEDS ORDERED: FUROSEMIDE INJ 10 MG/ML 4 ML VIAL IV ONE (08:30)
[2020-05-12] MEDS: FAMOTIDINE 20 MG/2 ML VIAL IV SCH ×2 (09:43→17:00)
[2020-05-12] MEDS: DOCUSATE SODIUM 100 MG CAP PO SCH ×2 (09:43→17:25)
[2020-05-12] MEDS: EZETIMIBE 10 MG TAB PO SCH (10:15)
[2020-05-12] MEDS: GABAPENTIN 400 MG CAP PO SCH ×2 (10:15→17:25)
[2020-05-12] MEDS: GLIMEPIRIDE 2 MG TAB PO SCH (10:15)
[2020-05-12] MEDS: ATORVASTATIN 40 MG TAB PO SCH (10:15)
[2020-05-12] MEDS: LISINOPRIL 20 MG TAB PO SCH (10:16)
[2020-05-12] MEDS: INSULIN REGULAR, HUMAN 100 UNIT/1 ML 3ML VIAL SQ SCH ×4 (10:23→21:00)
--- NOTE | 2020-05-12 10:31 | Progress Note ---
DATE: SUBJECTIVE: The patient received some Lasix yesterday and feels better. She still has some dyspnea. She is not having cough or chest pain. Additional history reveals insulin-dependent diabetes and hypertension, but no prior collagen vascular disease. The patient has never taken any diet pills. She has no known liver disease. No history of prior pulmonary emboli. PHYSICAL EXAMINATION: VITAL SIGNS: Blood pressure is 141/90, saturation is 100% on 2 L, the pulse is 90, respiratory rate is 20, and T-max is 97.5. HEENT: Shows no facial swelling or erythema. LYMPHATIC: Shows no submandibular, cervical, or supraclavicular adenopathy. CARDIAC: Reveals a regular rate and rhythm with normal S1, S2. LUNGS: Auscultation of lungs shows decreased breath sounds at the bases. There is no wheezing. ABDOMEN: Soft, nontender. There is no rebound or guarding. EXTREMITIES: Shows some skin changes consistent with chronic venous stasis. LABORATORY DATA: BUN to creatinine ratio is 34 to 1.14, which is improved from 1.27 yesterday. The blood sugar is 406 and the carbon dioxide is 25. The other electrolytes within normal limits. Hemoglobin A1c is 10.7. The albumin is 3.1. RADIOGRAPHIC DATA: CT scan of the chest shows no evidence of pulmonary embolism to the segmental level. The bilateral lower lobes and right middle lobe atelectasis. There is bpseo-og-puioqbty pericardial effusion as well as some right ventricular dysfunction. The pulmonary artery is large. IMPRESSION: 1. Right ventricular heart failure with acute cor pulmonale, present on admission. 2. Jajok-ol-fiqjcrl diastolic heart failure, present on admission. 3. Pericardial effusion of unclear duration, present on admission. 4. Tasgq-lt-vocmpoh renal failure. 5. Diabetes, requiring treatment with insulin. 6. Obesity. 7. Chronic venous insufficiency of the lower extremities. 8. Hypertension. PLAN: 1. The patient will need evaluation for pulmonary hypertension, this requires a ventilation-perfusion scan to rule out chronic pulmonary emboli; if this is negative, she also needs a repeat echocardiogram. Depending on these results, she may need a right heart catheterization to measure her pulmonary artery pressures. 2. Continue diuresis. 3. Cardiology consultation. 4. Continue oxygen. 5. Continue to monitor and control blood sugars. MD AIDAN De Santiago/KELLI /[id number]
[2020-05-12] MEDS ORDERED: FUROSEMIDE INJ 10 MG/ML 4 ML VIAL IV SCH (11:15)
--- NOTE | 2020-05-12 11:41 | Consultation ---
DATE OF CONSULTATION: 05/12/2020 REASON FOR CONSULTATION: Shortness of breath and CHF. HISTORY OF PRESENT ILLNESS: This is a 54-year-old female with history of diabetes, hypertension, hyperlipidemia, peripheral vascular disease, lower extremity cellulitis, and obesity. The patient presents to [facility] ER with complaints of shortness of breath for several weeks. Apparently, the patient saw her PCP and was told to go to ER for further evaluation. In the ER, the patient received Lasix, underwent CT scan that was suggestive of pulmonary hypertension. Cardiology was consulted to evaluate the patient. The patient is seen in room, reports after Lasix therapy, shortness of breath has remarkably improved, states that she went to see her PCP because of shortness of breath symptoms, was seen and she was told to go to ER for further evaluation. The patient denies any chest pain or shortness of breath. Does report lower extremity edema and also some orthopnea. PAST MEDICAL HISTORY: Diabetes, hypertension, hyperlipidemia, peripheral neuropathy, repeated cellulitis of lower extremity, and venous insufficiency. PAST SURGICAL HISTORY: . FAMILY HISTORY: Mother , apparently history of diabetes. Father of unknown cause. SOCIAL HISTORY: She is . 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 Denies any alcohol use or tobacco use. ALLERGIES: NO KNOWN ALLERGIES. HOME MEDICATIONS: Include atorvastatin 80 mg daily, Zetia 10 mg daily, gabapentin 400 mg b.i.d., glimepiride 4 mg daily, NovoLog 10 units daily, lisinopril 20 mg daily, metformin 1000 mg b.i.d., and Levemir 40 units daily. REVIEW OF SYSTEMS: GENERAL: Denies any weight changes, fatigue, weakness, fevers, chills, or night sweats. SKIN: Denies any rashes or sores. HEENT: Denies nausea, vomiting, vision changes, blurred vision, double vision, epistaxis, sore throat, or swollen neck. CARDIAC: Denies any chest pain. Positive for dyspnea on exertion. Denies any orthopnea or PND. Positive for lower extremity edema. RESPIRATORY: Positive for shortness of breath. Positive for nonproductive cough. Denies any wheezing or hemoptysis. GI: Reports good appetite. Denies any nausea, vomiting, diarrhea, constipation, melena, tarry or bloody stools. URINARY: Denies any frequency or urgency. Denies any hematuria or dysuria. VASCULAR: Positive for lower extremity edema. MUSCULOSKELETAL: Denies any muscle weakness. Positive for generalized joint pains and back pain. NEUROLOGIC: Denies any tremors, weakness, paralysis, fainting, seizures, however, positive for lower extremity numbness and tingling. HEMATOLOGY: Denies any anemia or bruising. ENDOCRINE: Denies any heat or cold intolerance, polyuria, polydipsia, or polyphagia. PHYSICAL EXAMINATION: VITAL SIGNS: Height 62 inches, weight 168 pounds. Temperature 98.6, pulse 92, respiratory rate 18, blood pressure 131/81, and pulse ox 100% on 2 L nasal cannula. GENERAL: Appears stated age, reliable informant, in no acute distress. SKIN: No rashes or bruises noted, however, chronic venous changes in lower extremities noted. HEENT: Normocephalic. Pupils are equal and reactive. Extraocular movements are intact. Trachea midline. No JVD. No carotid bruit. Oral mucosa pink. HEART: Regular rate and rhythm. No murmurs or clicks. PMI about 5th intercostal space. ABDOMEN: Soft, nontender, and nondistended. No organomegaly. LUNGS: Bilateral breath sounds clear to auscultation. Clear airway entry. MUSCULOSKELETAL: Good muscle strength throughout. Positive for lower extremity edema and also chronic venous changes in lower extremities. VASCULAR: +2 radial pulses bilaterally, +1 DP/PT pulses bilaterally. NEUROLOGIC: Cranial nerves 2 through 12 seem intact. LABORATORY DATA: Sodium 138, potassium 4.9, chloride 100, BUN 34, creatinine 1.1, and glucose 400. A1c 10.7. Troponin 0.1. BNP 535. INR 0.9. White count 10, hemoglobin 11, hematocrit 38, and platelets 274. COVID PCR not detected. IMAGING: Chest x-ray with some central pulmonary venous congestion. CT showing bilateral lower lobe, right middle lobe and lingular subsegmental atelectasis or scarring. Also enlarged pulmonary artery suggesting pulmonary hypertension. EKG, sinus rhythm with right bundle branch block. ASSESSMENT: 1. Gdalk-na-dchkspx diastolic heart failure. 2. Pulmonary hypertension by CT scan. 3. Hypertension. 4. Hyperlipidemia. 5. Diabetes, uncontrolled. 6. Venous insufficiency with chronic venous changes. PLAN: The patient presents to [facility] ER with complaints of shortness of breath, was noted to be hypoxic on admission, has been given Lasix in which the patient reports she is breathing much better. We will do echo to evaluate heart function and structure. Venous Doppler to evaluate for any occult thrombus lower extremities. Continue telemonitoring. We will continue diuretic therapy. Continue the patient's antihypertensive and statin therapy. We will repeat labs in a.m. Further recommendations as clinical course dictates. Thank you very much for this consult. Dictated by David Collado NP Seen and examined Agree with note Betsey Franklin MD DC/KELLI /[id number]
[2020-05-12] MEDS: OMEGA 3 POLYUNSAT FATTY ACIDS 1000 MG SOFTGEL PO SCH (12:11)
--- NOTE | 2020-05-12 14:12 | History and Physical ---
PRIMARY CARE PHYSICIAN: Dr. Kaia Noyola. CONSULTING PHYSICIANS: 1. Dr. Abilio Franco with Pulmonology/Critical Care Medicine. 2. Rigoberto with Cardiology. CHIEF COMPLAINT: Shortness of breath and cough for 2 days. HISTORY OF PRESENT ILLNESS: The patient is a 54-year-old female admitted via the emergency department with complaints of dyspnea/shortness of breath and cough of 1-2 day duration that had a nasal swab at her PCP office and subsequently was referred to the ER for possible influenza versus pneumonia. She was last at [facility] from 03/26/2020 to 03/31/2020, for abdominal wall abscess, end-stage diastolic CHF, type 2 diabetes mellitus etc., and was discharged to [facility] in [place]. Oxygen saturation 89% on room air in the emergency department. The patient is currently seen in room 176 in the intermediate care unit reserved for PUI and COVID positive patient. Since her COVID test has come back negative, an order has been entered into the computer for transfer to med/surg floor. PAST MEDICAL HISTORY: Hypertension, type 2 diabetes mellitus, cellulitis of the abdomen, end-stage diastolic congestive heart failure on 03/19/2019, right calf cellulitis with abscess, obesity, severe tricuspid regurgitation, hyperlipidemia, possibly liver disease, definitely chronic venous insufficiency of bilateral lower extremities. PAST SURGICAL HISTORY: . FAMILY HISTORY: Mother had diabetes. SOCIAL HISTORY: The patient denies any previous use of tobacco, alcohol, or illicit drugs. She is , with children. Guamanian-speaking only. 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 ALLERGIES: NO KNOWN ALLERGIES. HOME MEDICATIONS: Atorvastatin calcium 80 mg daily, Zetia 10 mg daily, gabapentin 400 mg b.i.d., glimepiride 4 mg daily, NovoLog insulin, Levemir insulin 40 units subcu daily, lisinopril 20 mg daily, metformin 1000 mg b.i.d., omega-3 acid 1000 mg daily. REVIEW OF SYSTEMS: A 14-point review of systems was completed. The patient denies chills or fever. She does have some dyspnea, minimal cough. Her last BM was 10/1 at night twice. She complains of back pain on the right side laterally and states this is worse with any deep inspiration. She has been a diabetic about 19 years. OBJECTIVE: VITAL SIGNS: Temperature 97.5, , respirations 20, oxygen saturation 100%. Height 5 feet 2 inches, weight 168 pounds. BMI of 30.72. GENERAL: Ambulating from the bathroom without difficulty. No acute distress. LUNGS: Diminished bibasilarly on oxygen at 2 L/minute via nasal cannula. Respirations even and nonlabored. HEENT: EOMI. Oropharynx clear. NECK: Supple. No lymphadenopathy. Thyromegaly, JVD. CARDIOVASCULAR: Regular rate without murmur. ABDOMEN: Bowel sounds positive. Soft, obese, nontender. EXTREMITIES: Darkening of bilateral legs consistent with chronic venous insufficiency, 1 to 2+ pitting edema. NEUROLOGICAL: GCS 15, nonfocal. LABORATORY DATA: On admission 05/11, WBCs 10.87, hemoglobin 11.9, hematocrit 40.1, platelets 431. PT 13.4, INR 0.97, PTT 33.3. Sodium 138, potassium 4.6, chloride 100, CO2 28, anion gap 14.6, BUN 34, creatinine 1.27, estimated GFR 44, glucose 275, calcium 9. Total bilirubin 0.5, AST 23, ALT 19, alkaline phosphatase 152, creatine kinase 378, CK-MB 8.3. Troponin I 0.127. Total protein 8.4, albumin 3.3. Urinalysis with 1+ glucose, moderate amount of blood, negative for nitrite, negative for leukocyte esterase, rbc's 6-10, wbc's 11-20, rare bacteria. Coronavirus PCR not detected. Influenza A and B negative. Ammonia level is 42. B-type natriuretic peptide 535.3. Today 05/12, WBCs 10.57, hemoglobin 11.5, hematocrit 38.3, platelets 374. Sodium 138, potassium 4.6, chloride 100, CO2 25, anion gap 17.6, BUN 34, creatinine 1.14, estimated GFR 50, glucose 406. Hemoglobin A1c 10.7%, calcium 9.0, phosphorus 4.5, magnesium 2.0, total bilirubin 0.4, AST 21, ALT 18, alkaline phosphatase 145, total protein 7.9, albumin 3.1. Blood cultures x2 and urine culture pending. Imaging/other on 05/11, chest x-ray showed lungs well inflated, diffuse bilateral interstitial opacities extending from the ismael with alveolar or opacities in bilateral lower lobes suggesting pulmonary edema, obscuration of the left hemidiaphragm and left retrocardiac opacity likely representing left pleural effusion, associated atelectasis or consolidation. Enlarged cardiac silhouette, stable central pulmonary venous congestion. No acute bony abnormalities. CT of the chest on 05/11, showed no evidence of pulmonary embolism to the segmental level, bilateral lower lobe, right middle lobe and lingular subsegmental atelectasis or scarring. No consolidation. Marketed cardiomegaly with moderate simple pericardial effusion. Reflux of contrast into the inferior vena cava and hepatic veins consistent with right ventricular dysfunction. Enlarged main pulmonary artery suggesting pulmonary hypertension. An echocardiogram was done on 03/28/2020, during her previous hospitalization and showed mild concentric left ventricular hypertrophy with overall left ventricular systolic function mildly impaired with an ejection fraction between 45% and 50%. Right ventricle severely enlarged measuring greater than 4.1 cm. The right ventricular systolic function is severely impaired. The right ventricular septal wall is flattened diastole and systole, which is consistent with right ventricular volume and pressure overload. There is right atrial enlargement, severe tricuspid regurgitation present. There was no pericardial effusion at that time. A 12-lead EKG done today 05/12 showed normal sinus rhythm with right bundle-branch block with a ventricular rate of 92 beats per minute. ASSESSMENT AND PLAN: 1. Acute on chronic end-stage diastolic congestive heart failure. DC any IV fluids. The patient was given 40 mg of Lasix and follow up on repeat echocardiogram results. Monitor any chest x-ray results or signs of fluid volume overload. B-type natriuretic peptide was 535.3. Cardiology has been consulted. 2. Moderate pericardial effusion. Lasix has already been given. Cardiology following. 3. Hypertensive urgency with associated diastolic congestive heart failure. Blood pressure 141/90 this morning. Continue p.r.n. IV hydralazine 10 mg for systolic blood pressure greater than 150. Resume home dose of lisinopril 20 mg daily. 4. Uncontrolled type 2 diabetes mellitus with hyperglycemia. Hemoglobin A1c 10.7%, anion gap 17.6, serum CO2 level 25. She does not meet criteria for DKA, however, is certainly uncontrolled. I explained to the patient via the use of the [employer] that her diabetes is poorly controlled at home and that she would need to follow up with her PCP regarding that. Serum 406 today. Levemir is not used at this facility. Thus, the Lantus 40 units at bedtime was ordered. Continue low-dose regular insulin sliding scale. She may change that to . RN instructed to check fingerstick blood glucose levels every hour for the next 4 hours to ensure that therapy is working sufficiently. The patient has been a diabetic for about 19 years. She uses metformin 1000 mg b.i.d., glimepiride 4 mg daily, aspart NovoLog insulin at home. We will discuss further with Dr. Mcallister and make any needed adjustments to her diabetes medications. 5. Severe tricuspid regurgitation. 6. Right ventricular dysfunction/pulmonary hypertension. Cardiology and Pulmonology following. Follow up on repeat echocardiogram results. 7. Hypoxia requiring supplemental oxygen. She is on 2 L of oxygen via nasal cannula. She was weaned to room air as tolerated. 8. Right bundle-branch block. Continue current cardiac medications. 9. Hyperlipidemia. Resume home dose of Zetia. Continue atorvastatin 80 mg daily home dose. Continue omega-3 polyunsaturated fatty acids. 10. Chronic venous insufficiency, bilateral lower extremities, POA. 11. Obesity with BMI of 30.72. Dietary restrictions. 12. Prophylaxis ambulatory, Pepcid IV. Inpatient, billing code [id number], time spent 60 minutes. Dictated by Jay Jay Solano NP Rafita Mcallister MD HWP/MODL /[id number]
[2020-05-12] MEDS ORDERED: SODIUM CHLORIDE 0.9% 250ML 250 ML ONE (16:24)
--- NOTE | 2020-05-12 16:48 | Diagnostic Imaging Report ---
Perfusion Lung Scan NOTE: Lung ventilation studies with xenon are not being performed per the recommendation of the Society of Nuclear Medicine and Molecular Imaging. It is not possible to be certain that the ventilation system is adequately disinfected. Ventilation studies with Tc-99m DTPA particles is contraindicated because the delivery by nebulization generates too many water droplets from the patient's airway. Clinical Information: Hypoxia; pneumonia. History of COPD and diastolic CHF. Comparison: Chest radiograph 05/11/2020; CT chest PE protocol 05/11/2020 Discussion: Ventilation images were not obtained. See note above. Perfusion images of the lungs were obtained in multiple projections following intravenous administration of approximately 5 mCi of Tc-99m MAA. Distribution of tracer is irregular throughout both lungs. No segmental perfusion defects of any size are present. Nonsegmental perfusion abnormality are seen in the right lung base posteriorly. The cardiomediastinal silhouette is markedly enlarged. Impression: 1. Scan findings represent a VERY LOW probability for acute pulmonary embolic disease based on the perfusion-only PIOPED II criteria. Concurrent ventilation study would not alter the assigned probability for acute PE. 2. Scan findings are compatible with diffuse parenchymal and/or obstructive lung disease. Atelectasis or consolidation is suspected in the right lung base posteriorly. 3. Markedly enlarged cardiac silhouette. Signed by: Dr. Violette Arana M.D. on 05/12/2020 4:45 PM
[2020-05-12] MEDS: CEFTRIAXONE SOD 1 GM/NS 50 ML 50 ML IV SCH (17:24)
[2020-05-12] MEDS: AZITHROMYCIN 500MG/NS 250 ML 250 ML IV SCH (17:25)
[2020-05-12] MEDS: FUROSEMIDE INJ 10 MG/ML 4 ML VIAL IV SCH (20:18)
[2020-05-12] MEDS: ENOXAPARIN SOD INJ 40 MG/0.4 ML SYR SC SCH (20:18)
[2020-05-12] MEDS: INSULIN GLARGINE 100 UNITS/ML VIAL SQ SCH (21:00)
[2020-05-13] VITALS (7 sets, daily range): BP systolic 91–124; BP diastolic 61–87
[2020-05-13] MEDS: INSULIN LISPRO 100 UNIT/1 ML 3ML VIAL SQ SCH (05:14)
[2020-05-13 05:19] LABS: BASOPHILS # (AUTO) 0.1 (0.0-0.1); BASOPHILS % 0.8 % (0.0-1.0); EOSINOPHILS # (AUTO) 0.2 (0.0-0.4); EOSINOPHILS % 1.2 % (0.0-6.0); HEMATOCRIT 37.3 % (34.2-44.1); HEMOGLOBIN 11.3 g/dL (12.0-16.0); LYMPHOCYTES % 23.1 % (18.0-39.1); MEAN CORPUSCULAR HEMOGLOBIN 25.2 pg (28-32); MEAN CORPUSCULAR HGB CONC 30.3 g/dL (31-35); MEAN CORPUSCULAR VOLUME 83.1 fL (81-99); MONOCYTES # (AUTO) 0.8 (0.2-0.8); MONOCYTES % 6.4 % (4.4-11.3); NEUTROPHILS # (AUTO) 8.9 (2.1-6.9); NEUTROPHILS % 68.1 % (38.7-80.0); PLATELET COUNT 380 x10e3/uL (140-360); RED BLOOD COUNT 4.49 x10e6/uL (3.6-5.1); RED CELL DISTRIBUTION WIDTH 15.5 % (11.7-14.4)
[2020-05-13 05:41] LABS: CHOL/HDL RATIO 2.9 (3.0-3.6)
[2020-05-13 06:00] LABS: THYROID STIMULATING HORMONE 0.47 uIU/mL (0.350-4.940)
[2020-05-13 06:25] LABS: ALBUMIN 1.9 g/dL (3.5-5.0); ALBUMIN/GLOBULIN RATIO 0.4 (0.8-2.0); ANION GAP 14.1 mmol/L (8-16); CALCIUM 8.5 mg/dL (8.4-10.2); CREATININE, SERUM 1.34 mg/dL (0.57-1.11); POTASSIUM 4.1 mmol/L (3.5-5.1)
--- NOTE | 2020-05-13 07:00 | NUR ---
RECEIVED PATIENT RESTING IN BED NO S/S OF DISTRESS. BED LOW, WHEELS LOCKED, SIDE RAILS X2. CALL LIGHT IN REACH WILL CONTINUE TO MONITOR.
[2020-05-13] MEDS: INSULIN REGULAR, HUMAN 100 UNIT/1 ML 3ML VIAL SQ SCH ×4 (07:30→21:25)
[2020-05-13] MEDS: LISINOPRIL 20 MG TAB PO SCH (08:20)
[2020-05-13] MEDS: ATORVASTATIN 40 MG TAB PO SCH (08:33)
[2020-05-13] MEDS: DOCUSATE SODIUM 100 MG CAP PO SCH ×2 (08:33→16:56)
[2020-05-13] MEDS: GLIMEPIRIDE 2 MG TAB PO SCH (08:33)
[2020-05-13] MEDS: OMEGA 3 POLYUNSAT FATTY ACIDS 1000 MG SOFTGEL PO SCH (08:33)
[2020-05-13] MEDS: EZETIMIBE 10 MG TAB PO SCH (08:33)
[2020-05-13] MEDS: GABAPENTIN 400 MG CAP PO SCH ×2 (08:33→16:56)
[2020-05-13] MEDS: FUROSEMIDE INJ 10 MG/ML 4 ML VIAL IV SCH ×2 (08:33→21:23)
[2020-05-13] MEDS: FAMOTIDINE 20 MG/2 ML VIAL IV SCH ×2 (09:00→16:56)
--- NOTE | 2020-05-13 11:38 | NUR ---
BLOOD SUGAR 56. PATIENT ASYMPTOMATIC, APPLE JUICE GIVEN.
--- NOTE | 2020-05-13 13:42 | Progress Note ---
DATE: SUBJECTIVE: The patient feels better. She has less dyspnea. She is not having any cough or fevers. PHYSICAL EXAMINATION: VITAL SIGNS: Blood pressure is 110/87, saturation is 100% and pulse is 79. HEENT: Shows no facial swelling or erythema. LYMPHATIC: Shows no submandibular, cervical, or supraclavicular adenopathy. CARDIAC: Reveals regular rate and rhythm. Normal S1, S2. LUNGS: Auscultation of lungs reveals rhonchorous breath sounds bilaterally. There is no wheezing. ABDOMEN: Soft and nontender. There is no rebound or guarding. EXTREMITIES: Shows no leg edema or calf tenderness. There is no cyanosis or clubbing. SKIN: Shows no rashes. LABORATORY DATA: White blood cell count is 13.1, hemoglobin is 11.3, and the platelet count is 380. The BUN to creatinine ratio is 45 to 1.34. Albumin is 1.9. IMPRESSION: 1. Right ventricular heart failure with acute cor pulmonale, present on admission. 2. Acute on chronic diastolic heart failure, present on admission. 3. Pericardial effusion of unclear etiology. 4. Acute on chronic renal failure. 5. Diabetes, requiring treatment with insulin at home. 6. Obesity. 7. Chronic venous insufficiency in the lower extremities. 8. Hypertension. PLAN: 1. Continue current cardiac regimen. 2. Await official reading of echocardiogram. Depending on these results, the patient may require right heart catheterization. 3. The patient may need evaluation for pulmonary arterial hypertension. 4. Continue oxygen. 5. Continue to monitor and control blood sugars. Abilio Franco MD [place]/MODL /[id number]
--- NOTE | 2020-05-13 15:52 | NUR ---
Nutrition Screen Note RD Recommendation for Physician: -Continue low sodium/1800 ADA diet Plan of Care: RD following, monitoring for tolerance and adequacy Nutrition reason for involvement: consult for diabetic diet education Primary Diagnose(s): hypoxia, pneumonia PMH: Hypertension, type 2 diabetes mellitus, cellulitis of the abdomen, end-stage diastolic congestive heart failure on 03/19/2019, right calf cellulitis with abscess, obesity, severe tricuspid regurgitation, hyperlipidemia, possibly liver disease, definitely chronic venous insufficiency of bilateral lower extremities. Ht: 62 in Wt: 168 lb BMI: 30.7 kg/m2 IBW: [address] Assessment: (05/13/20) Chart reviewed. Labs and meds reviewed. Pt is a 54 year old female admitted with hypoxia and pneumonia. Pts COVID test was negative. Pt is primarily Nauruan speaking. There are no reports of decreased appetite or recent unintentional weight loss upon admission. Spoke to RN who reported pt is eating >50% of meals. No N/V/D/C or chewing/swallowing issues reported. RD provided pt with written materials regarding carbohydrate counting, reading the food label, and low sodium diet education in Nauruan. Will continue to monitor Current Diet: low sodium/1800 ADA Malnutrition Evaluation (05/13/20) The patient does not meet criteria for a specified degree of malnutrition at this time. Will re-evaluate at follow-up as appropriate. Diet Education Needs Assessment: RD provided pt with written materials regarding carbohydrate counting, reading the food label, and low sodium diet education in Nauruan. Will continue to monitor Nutrition Care Level: low Signed: Shira Waggoner, ANEESH, LD
[2020-05-13] MEDS: CEFTRIAXONE SOD 1 GM/NS 50 ML 50 ML IV SCH (16:56)
[2020-05-13] MEDS: ENOXAPARIN SOD INJ 40 MG/0.4 ML SYR SC SCH (16:56)
--- NOTE | 2020-05-13 17:35 | NUR ---
Patient transferred to room 100 in stable condition. Report given to Al BARAJAS.
--- NOTE | 2020-05-13 17:41 | NUR ---
patient received from [facility]. patient is negative. vitals stable with no distress.
[2020-05-13] MEDS: AZITHROMYCIN 500MG/NS 250 ML 250 ML IV SCH (17:51)
[2020-05-13] MEDS: METFORMIN HCL 500 MG TAB PO SCH (21:23)
[2020-05-13] MEDS: INSULIN GLARGINE 100 UNITS/ML VIAL SQ SCH (21:25)
[2020-05-14] VITALS: BP 102/56
[2020-05-14 04:00] VITALS: BP 101/75
[2020-05-14] MEDS: INSULIN LISPRO 100 UNIT/1 ML 3ML VIAL SQ SCH (06:00)
--- NOTE | 2020-05-14 07:22 | NUR ---
PATIENT SUGAR WAS LOW, PATIENT ALERT AND ORIENTED, PATIENT WAS GIVEN JUICE, RECHECKED WAS 118.
[2020-05-14] MEDS: INSULIN REGULAR, HUMAN 100 UNIT/1 ML 3ML VIAL SQ SCH ×2 (07:30→11:30)
[2020-05-14] MEDS: GLIMEPIRIDE 2 MG TAB PO SCH (08:08)
[2020-05-14] MEDS: METFORMIN HCL 500 MG TAB PO SCH (08:08)
[2020-05-14 08:19] VITALS: BP 101/63
[2020-05-14] MEDS ORDERED: LISINOPRIL 10 MG TAB PO SCH (09:00)
[2020-05-14] MEDS: FAMOTIDINE 20 MG/2 ML VIAL IV SCH (09:29)
[2020-05-14] MEDS: GABAPENTIN 400 MG CAP PO SCH (09:29)
[2020-05-14] MEDS: EZETIMIBE 10 MG TAB PO SCH (09:29)
[2020-05-14] MEDS: OMEGA 3 POLYUNSAT FATTY ACIDS 1000 MG SOFTGEL PO SCH (09:29)
[2020-05-14] MEDS: ATORVASTATIN 40 MG TAB PO SCH (09:29)
[2020-05-14] MEDS: DOCUSATE SODIUM 100 MG CAP PO SCH (09:29)
[2020-05-14] MEDS: FUROSEMIDE INJ 10 MG/ML 4 ML VIAL IV SCH (09:29)
[2020-05-14 12:30] VITALS: BP 108/70
--- NOTE | 2020-05-14 13:05 | Progress Note ---
DATE: SUBJECTIVE: The patient is feeling better, but is still on a nasal cannula. PHYSICAL EXAMINATION: VITAL SIGNS: The blood pressure is 101/63, saturation is 96% on 2 L, and the pulse is 88. HEENT: Shows no facial swelling or erythema. LYMPHATIC: Shows no submandibular, cervical, supraclavicular adenopathy. CARDIAC: Reveals a regular rate and rhythm with normal S1, S2. LUNGS: Auscultation of lungs reveals clear breath sounds bilaterally. There is no wheezing. ABDOMEN: Soft and nontender. There is no rebound or guarding. EXTREMITIES: Shows 1+ leg edema. Examination of the extremity show some skin changes consistent with chronic venous stasis. LABORATORY DATA: BUN to creatinine ratio is 45 to 1.34. IMPRESSION: 1. Right ventricular heart failure with acute cor pulmonale, present on admission. 2. Acute on chronic diastolic heart failure, present on admission. 3. Acute on chronic renal failure. 4. Diabetes, requiring insulin at home. 5. Chronic venous insufficiency in the lower extremities. 6. Hypertension. 7. Obesity. PLAN: 1. Stop Lasix today and repeat creatinine. 2. The patient may need low-dose aldactone on a regular basis. 3. The patient will require evaluation for pulmonary hypertension, this will probably include right heart catheterization. 4. Continue oxygen. 5. Continue to monitor and control blood sugars. MD AIDAN De Santiago/KELLI /[id number]
[2020-05-14 13:25] LABS: ALBUMIN 2.4 g/dL (3.5-5.0); ALBUMIN/GLOBULIN RATIO 0.4 (0.8-2.0); ANION GAP 16.7 mmol/L (8-16); CALCIUM 8.5 mg/dL (8.4-10.2); CREATININE, SERUM 1.31 mg/dL (0.57-1.11); POTASSIUM 4.7 mmol/L (3.5-5.1)
[2020-05-14] MEDS ORDERED: SPIRONOLACTONE25 MG PO (14:05)
[2020-05-14] MEDS ORDERED: LASIX20 MG PO (14:05)
[2020-05-14] MEDS ORDERED: CEFUROXIME250 MG PO (14:28)
[2020-05-14] MEDS ORDERED: ZITHROMAX500 MG PO (14:28)
[2020-05-14] MEDS ORDERED: TESSALON PERLE100 MG PO (14:28)
[2020-05-14] MEDS ORDERED: FAMOTIDINE 20 MG TAB PO SCH (16:30)
[2020-05-14 16:32] VITALS: BP 117/93
--- NOTE | 2020-05-14 18:17 | Discharge Summary ---
PRIMARY CARE PROVIDER: Dr. Yang, not on staff. 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 ADMITTING DIAGNOSES: 1. [id number] diastolic congestive heart failure. 2. Hypertensive urgency. 3. Uncontrolled type 2 diabetes. 4. Pulmonary hypertension with right ventricular dysfunction. 5. Chronic venous hypertension with inflammation, bilateral lower extremities. 6. Community-acquired pneumonia. All of these were present on admission. DISCHARGE DIAGNOSES: 1. Buybp-[id number] diastolic congestive heart failure. 2. Hypertensive urgency. 3. Uncontrolled type 2 diabetes. 4. Pulmonary hypertension with right ventricular dysfunction. 5. Chronic venous hypertension with inflammation, bilateral lower extremities. 6. Community-acquired pneumonia. BRIEF HISTORY: Ms. Mcclure is a 54-year-old lady presenting with cough and hypoxia, O2 saturation 89% on room air. HOSPITAL COURSE: The patient was admitted to the [facility]. She was started on Zithromax and Rocephin for bibasilar atelectasis/infiltrates and an elevated white count. She had an echocardiogram that showed severely dilated right ventricle with pulmonary hypertension and right ventricular failure. She had an elevated BNP. She was treated with Lasix with good diuresis. She had the rest of her medications continued including sliding scale insulin. The patient diuresed well. The Lasix was decreased to 20 mg daily, spironolactone 25 mg added for the diastolic heart failure. The patient also received three days of the Zithromax and ceftriaxone, and will be sent home on to complete a 5-day course of the Zithromax and a 7-day course of the ceftriaxone along with Tessalon Cough Perles. She will resume a diabetic diet. Activity as tolerated. All of her home medications as noted with the addition of Lasix 20 mg daily, spironolactone 25 mg daily, 2 more days of Zithromax, 4 more days of ceftriaxone. We will convert to cefuroxime along with Tessalon Perles. She will follow up within 2 weeks with Pulmonology. Addendum to admitting and discharge diagnoses. 1. Type 2 diabetes with chronic kidney disease. 2. Chronic kidney disease, stage III. Her GFR 44 on admission, 42 on discharge, relatively stable. 3. MD JAEL Qunitanilla/KELLI /[id number]
[2020-05-15] MEDS ORDERED: SPIRONOLACTONE 25 MG TAB PO SCH (09:00)
[2020-05-15] MEDS ORDERED: FUROSEMIDE 40 MG TAB PO SCH (09:00)
== END 2020-05-14 16:36 | disposition home or self-care (01) | DRG 291 ==
LOC: ER 15:40 → ERHOLD 17:13 → IMCU 19:38 → MED/SURG 05-13 17:17
PROVIDERS: ADMIT Internal Medicine; ATTEND Internal Medicine
DX: I13.0 Hypertensive heart and chronic kidney disease with heart failure and stage 1 through stage 4 chronic kidney disease, or unspecified chronic kidney disease (principal); J18.9 Pneumonia, unspecified organism; I50.33 Acute on chronic diastolic (congestive) heart failure; N17.9 Acute kidney failure, unspecified; I31.3 Pericardial effusion (noninflammatory); E11.65 Type 2 diabetes mellitus with hyperglycemia; I27.20 Pulmonary hypertension, unspecified; I87.309 Chronic venous hypertension (idiopathic) without complications of unspecified lower extremity; Z11.59 Encounter for screening for other viral diseases; E11.22 Type 2 diabetes mellitus with diabetic chronic kidney disease; N18.2 Chronic kidney disease, stage 2 (mild); I87.2 Venous insufficiency (chronic) (peripheral); E66.9 Obesity, unspecified; Z68.30 Body mass index [BMI] 30.0-30.9, adult; E78.5 Hyperlipidemia, unspecified; E11.51 Type 2 diabetes mellitus with diabetic peripheral angiopathy without gangrene; I45.10 Unspecified right bundle-branch block
CPT/HCPCS: 36415; 71045; 71260; 78597; 80053; 80061; 81001; 82140; 82550; 82553; 82948; 83036; 83735; 83880; 84100; 84443; 84484; 85025; 85610; 85730; 87040; 87086; 87400; 93005; 93306; 93970; 96360; 96372; 99285; A9540; J0456; J0696; J1100; J1650; J1815; J1940; J7050; Q9967